=== PATIENT | male | born 1970 | race Caucasian/White ===

== ENCOUNTER 2022-11-26 16:11 | Inpatient (IN) | payer OTHER, MEDICAID, SELFPAY ==
--- NOTE | ~2022-11-26 | CT_ITS ---
EXAMINATION: CT HEAD WITHOUT CONTRAST CLINICAL INFORMATION: New onset psychosis COMPARISON: None available. TECHNIQUE: Contiguous axial imaging was performed from the skull base to vertex without intravenous administration of contrast. This CT examination was performed using dose optimization techniques as appropriate, variously including the following: *Automated exposure control *Adjustment of mA and/or kV according to patient size (this includes techniques or standardized protocols for targeted exams where dose is matched to indication/reason for exam; i.e. extremities or head) *Use of iterative reconstruction technique DLP: 807 mGy-cm FINDINGS: There is no acute intra-axial, extra-axial bleed, masses or midline shift. There is no acute infarction evolution. There is no edema. The great to white matter differentiation is maintained normal. The lateral ventricles are symmetrical in size and configuration without enlargement. Bone windows reveal no calvarial abnormality. Bilateral paranasal sinuses and mastoid air cells are well-aerated. There is no scalp soft tissue abnormality. CT/CT head/brain wo IV con IMPRESSION: No acute intracranial process seen.
[2022-11-26 16:39] VITALS: BP 150/87; PULSE 99; RESP 18; TEMP 36.6; O2SAT 97; BMI 18.5
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
--- NOTE | 2022-11-26 16:42 | ECG_ITS ---
Test Reason : MED CLEARANCE Blood Pressure : / mmHG Vent. Rate : 073 BPM Atrial Rate : 073 BPM P-R Int : 152 ms QRS Dur : 082 ms QT Int : 362 ms P-R-T Axes : 070 039 026 degrees QTc Int : 398 ms Normal sinus rhythm Minimal voltage criteria for LVH, may be normal variant ( Sokolow-Seymour ) Borderline ECG No previous ECGs available Referred By: Sandy Velasquez Electronically Signed By:Benjamin Fisher
[2022-11-26 16:59] LABS: MANUAL DIFF FLAG NO
[2022-11-26 17:01] LABS: Basophils Absolute Auto 0.1 X10*3/uL (0.0-0.2); Basophils Percent Auto 0.7 % (0-2); Eosinophils Percent Auto 0.3 % (0-4); Hematocrit 44.3 % (42.0-52.0); Hemoglobin 15.2 g/dl (14.0-18.0); Imm Gran Abs Auto 0.02 X10*3/uL (0.00-0.03); Imm Gran Pct Auto 0.2 % (0.0-0.4); Lymphocytes Absolute Auto 2.2 X10*3/uL (1.2-4.9); Lymphocytes Percent Auto 17.1 % (20-40); Mean Corpuscular HGB Conc 34.3 g/dl (31.0-36.0); Mean Corpuscular Volume 78.8 fL (80.0-98.0); Mean Platelet Volume 11.1 fL (9.4-12.4); Monocytes Absolute Auto 0.8 X10*3/uL (0.1-1.2); Neutrophils Absolute Auto 9.6 x10*3/uL (2.0-8.3); Neutrophils Percent Auto 75.7 % (45-73); Platelet Count 221 X10*3/uL (160-400); Red Blood Count 5.62 X10*6/uL (4.60-5.80); Red Cell Distribution Width 12.8 % (11.0-16.0); White Blood Count 12.7 X10*3/uL (4.8-10.8)
[2022-11-26 17:06] LABS: INTERNATIONAL NORM RATIO 1.1 (0.9-1.1); Prothrombin Time 12.5 SEC (10.0-13.1)
[2022-11-26 17:23] LABS: Amphetamine Screen Urine Not Detected (Not Detect); Barbiturates, Urine Not Detected (Not Detect); Benzodiazepines Screen Urine Not Detected (Not Detect); Cannabinoid Screen Urine Not Detected (Not Detect); Cocaine Screen Urine Not Detected (Not Detect); Fentanyl, urine Not Detected (Not Detect); Opiate Screen Urine Not Detected (Not Detect); Phencyclidine Screen Urine Not Detected (Not Detect)
[2022-11-26 17:24] LABS: Ethanol < 10 mg/dL
[2022-11-26 17:41] LABS: Alanine Aminotransferase 25 U/L (0-40); Albumin Level 4.3 g/dL (3.5-5.0); Alkaline Phosphatase 114 U/L (39-117); Anion Gap 11 (12-20); Aspartate Amino Transferase 23 U/L (5-37); Bilirubin Total 0.5 mg/dL (0.0-1.0); Blood Urea Nitrogen 9 mg/dL (9-16); Calcium 9.4 mg/dL (8.4-10.2); Carbon Dioxide 28 mmol/L (22-29); Chloride 103 mmol/L (96-108); Creatinine Clr Calc Pharmacy 61.9; Estimated Glomerular Filt Rate > 60; Glucose Random 404 mg/dL (60-115); Lipase 25 U/L (8-78); Magnesium 1.9 mg/dL (1.6-2.6); Potassium 4.1 mmol/L (3.3-5.1); Sodium 138 mmol/L (135-145); Total Protein 7.6 g/dL (6.5-8.0)
--- NOTE | 2022-11-26 17:43 | PC.NURSE ---
patient alert, oriented x4. denies SI or HI to RN. calm and cooperative with staff
[2022-11-26 17:45] LABS: TSH reflex Free T4 0.97 uIU/mL (0.32-4.0)
[2022-11-26 18:02] LABS: Influenza A PCR NEGATIVE (Negative); Influenza B PCR NEGATIVE (Negative); Resp Syncy Virus RNA Qual PCR NEGATIVE (Negative); SARS COV2 PCR INHOUSE NEGATIVE (Negative)
[2022-11-26 18:36] LABS: Appearance Urine Clear; Color Urine Yellow; Glucose Urine UA >=1000 mg/dL (Negative); Leukocyte Esterase Urine Negative (Negative); Nitrite Urine Negative (Negative); PH 5.5 (5.0-9.0); Specific Gravity - Urine >= 1.030 (1.005-1.025); UMIC TRIGGER UACC YES; Urine Blood Negative (Negative); Urine Ketones Negative (Negative); Urine Protein 30 (1+) mg/dL (Neg-Trace)
[2022-11-26 18:38] LABS: Bacteria Urine None Seen (None Seen); Hyaline Casts Urine 0-2 /LPF (0-2); RBC Urine 0-2 /HPF (0-2); Squamous Epithelial Cell Urine 0-2 /HPF (0-2); WBC Urine 0-5 /HPF (0-5)
[2022-11-26] MEDS: metFORMIN HCl 1,000 MG TABLET 1000 MG PO (19:31)
--- NOTE | 2022-11-26 19:33 | PC.NURSE ---
Patient's RG @ 1653 was 404, provider made aware/ordered Metformin 1000 mg/administered at 1931, called sister Haylee/not aware of any patient's medical diagnosis including diabetes, Chinese speaking only, awaiting care team assesment, will continue to monitor.
[2022-11-27 06:04] LABS: Glucose, Whole Blood 343 mg/dL (60-115)
[2022-11-27 06:09] VITALS: BP 125/87; PULSE 87; RESP 17; O2SAT 99
--- NOTE | 2022-11-27 06:13 | PC.NURSE ---
Patient slept through the night, no distress observed/reported, POC @ 0559 was 343 provider made aware, med rec completed/currently not on any medication, care team assessed the patient, disposition pending, patient will be reevaluated in the morning, patient is Estonian speaking only, behavior non concerning, will continue to monitor.
--- NOTE | 2022-11-27 07:55 | PC.NURSE ---
pt is sleeping resp even and unlabored.
[2022-11-27 09:16] LABS: Glucose, Whole Blood 337 mg/dL (60-115)
--- NOTE | 2022-11-27 09:33 | PC.NURSE ---
this rn with de alcoholizer at bedside. pt is ao x 3 no sob/george noted speaks in full sentences. denies any si/hi. denies pain/disc. pt ate 100% of breakfast.
[2022-11-27] MEDS: metFORMIN HCl 1,000 MG TABLET 1000 MG PO (10:31)
[2022-11-27 11:34] VITALS: BP 130/86; PULSE 89; RESP 19; TEMP 37.1; O2SAT 97
[2022-11-27 13:10] LABS: Glucose, Whole Blood 263 mg/dL (60-115)
--- NOTE | 2022-11-27 13:38 | PC.NURSE ---
dr. rodriguez and the cvt rn at bedside, pt aware of plan of care.
--- NOTE | 2022-11-27 14:34 | PM.PSYCN ---
History of Present Illness Date of Service: 11/27/22 Chief Complaint: bumps on head itchy Discussed with referring provider: No Sources of Information: patient interviewed, chart reviewed and crisis/core team assessment reviewed HPI Narrative: Patient is a 52-year-old [place]-speaking male with history of diabetes, currently hyperglycemic whose family brought to the ED for manic, disorganized behaviors. Patient seen with seating and mobility technologist Patient's family reports that patient has been acting disorganized, making suicidal comments, saying he was going to burn down a bank and getting in fights with coworkers at work. Patient is polite on approach however disorganized. He says that he is in the process of getting a lawsuit which he will get lots of money and offers some to the field underwriter and glove maker and other staff for being helpful. Patient is tangential. Cane Loader asked about what brought him to the hospital. Patient starts by saying it was a family problem that brought me here but then starts rambling about unrelated things; frequent redirections were not sustainable. Even when asked if he was fighting with his coworkers, he initially said yes but then started talking about all sorts of unrelated things; however he did say that he was asking every single co-worker how much money that made. Patient denies that he wanted to burn a bank and denies any SI at all saying he never said these things. Denies any history of psychiatric illness or taking psychiatric medications. Patient does say however that he has not been sleeping all week be his he has too much energy. Patient refuses any medication treatment. Past Psychiatric History: Patient reports no history Medical Evaluation Reviewed: Yes Personal & Social History: See care team notes PMFSH Family History: Unknown Social History: Deferred Trauma History: Deferred Diagnostics Vital Signs (24Hr): Vital Signs - 24 hr 11/26/22 16:39 11/27/22 06:09 11/27/22 11:34 Temperature 97.9 F 98.8 F Pulse Rate 99 87 89 Respiratory Rate 18 17 19 Blood Pressure 150/87 H 125/87 130/86 Pulse Oximetry 97 99 97 Oxygen Delivery Method Room Air Room Air Room Air BMI result Body Mass Index 18.5 Labs 11/26/22 16:53 11/26/22 16:53 Labs: Laboratory Results - last 48 hr 11/26/22 11/26/22 11/26/22 16:53 16:53 16:53 WBC 12.7 H RBC 5.62 Hgb 15.2 Hct 44.3 MCV 78.8 L MCH 27.0 MCHC 34.3 RDW 12.8 Plt Count 221 MPV 11.1 Immature Gran % (Auto) 0.2 Neut % (Auto) 75.7 H Lymph % (Auto) 17.1 L [place] % (Auto) 6.0 Eos % (Auto) 0.3 Baso % (Auto) 0.7 Lymph # (Auto) 2.2 [place] # (Auto) 0.8 Eos # (Auto) 0.0 Baso # (Auto) 0.1 Abs Immat Gran (auto) 0.02 Absolute Neuts (auto) 9.6 H Absolute Nucleated RBC 0.000 Nucleated RBC % (auto) 0.0 PT 12.5 INR 1.1 Sodium 138 Potassium 4.1 Chloride 103 Carbon Dioxide 28 Anion Gap 11 L BUN 9 Creatinine 1.11 Estim Creat Clear Calc 61.9 Estimated GFR > 60 POC Glucose Random Glucose 404 H* Calcium 9.4 Magnesium 1.9 Total Bilirubin 0.5 AST 23 ALT 25 Alkaline Phosphatase 114 Total Protein 7.6 Albumin 4.3 Lipase 25 TSH 0.97 Urine Color Urine Appearance Urine pH Ur Specific [place] Urine Protein Urine Glucose (UA) Urine Ketones Urine Blood Urine Nitrite Ur Leukocyte Esterase Urine RBC Urine WBC Ur Squamous Epith Cells Urine Bacteria Hyaline Casts Urine Opiates Screen Urine Fentanyl Screen Ur Barbiturates Screen Ur Phencyclidine Scrn Ur Amphetamines Screen U Benzodiazepines Scrn Urine Cocaine Screen U Marijuana (THC) Screen Ethyl Alcohol Influenza Type A (PCR) Influenza Type B (PCR) RSV RNA Qual (PCR) SARS-CoV-2 RNA (RT-PCR) 11/26/22 11/26/22 11/26/22 16:53 16:53 17:04 WBC RBC Hgb Hct MCV MCH MCHC RDW Plt Count MPV Immature Gran % (Auto) Neut % (Auto) Lymph % (Auto) [place] % (Auto) Eos % (Auto) Baso % (Auto) Lymph # (Auto) [place] # (Auto) Eos # (Auto) Baso # (Auto) Abs Immat Gran (auto) Absolute Neuts (auto) Absolute Nucleated RBC Nucleated RBC % (auto) PT INR Sodium Potassium Chloride Carbon Dioxide Anion Gap BUN Creatinine Estim Creat Clear Calc Estimated GFR POC Glucose Random Glucose Calcium Magnesium Total Bilirubin AST ALT Alkaline Phosphatase Total Protein Albumin Lipase TSH Urine Color Yellow Urine Appearance Clear Urine pH 5.5 Ur Specific [place]erman >= 1.030 H Urine Protein 30 (1+) H Urine Glucose (UA) >=1000 H Urine Ketones Negative Urine Blood Negative Urine Nitrite Negative Ur Leukocyte Esterase Negative Urine RBC 0-2 Urine WBC 0-5 Ur Squamous Epith Cells 0-2 Urine Bacteria None Seen Hyaline Casts 0-2 Urine Opiates Screen Urine Fentanyl Screen Ur Barbiturates Screen Ur Phencyclidine Scrn Ur Amphetamines Screen U Benzodiazepines Scrn Urine Cocaine Screen U Marijuana (THC) Screen Ethyl Alcohol < 10 Influenza Type A (PCR) NEGATIVE Influenza Type B (PCR) NEGATIVE RSV RNA Qual (PCR) NEGATIVE SARS-CoV-2 RNA (RT-PCR) NEGATIVE 11/26/22 11/27/22 11/27/22 17:04 05:59 09:11 WBC RBC Hgb Hct MCV MCH MCHC RDW Plt Count MPV Immature Gran % (Auto) Neut % (Auto) Lymph % (Auto) [place] % (Auto) Eos % (Auto) Baso % (Auto) Lymph # (Auto) [place] # (Auto) Eos # (Auto) Baso # (Auto) Abs Immat Gran (auto) Absolute Neuts (auto) Absolute Nucleated RBC Nucleated RBC % (auto) PT INR Sodium Potassium Chloride Carbon Dioxide Anion Gap BUN Creatinine Estim Creat Clear Calc Estimated GFR POC Glucose 343 H 337 H Random Glucose Calcium Magnesium Total Bilirubin AST ALT Alkaline Phosphatase Total Protein Albumin Lipase TSH Urine Color Urine Appearance Urine pH Ur Specific [place]erman Urine Protein Urine Glucose (UA) Urine Ketones Urine Blood Urine Nitrite Ur Leukocyte Esterase Urine RBC Urine WBC Ur Squamous Epith Cells Urine Bacteria Hyaline Casts Urine Opiates Screen Not Detected Urine Fentanyl Screen Not Detected Ur Barbiturates Screen Not Detected Ur Phencyclidine Scrn Not Detected Ur Amphetamines Screen Not Detected U Benzodiazepines Scrn Not Detected Urine Cocaine Screen Not Detected U Marijuana (THC) Screen Not Detected Ethyl Alcohol Influenza Type A (PCR) Influenza Type B (PCR) RSV RNA Qual (PCR) SARS-CoV-2 RNA (RT-PCR) 11/27/22 13:05 WBC RBC Hgb Hct MCV MCH MCHC RDW Plt Count MPV Immature Gran % (Auto) Neut % (Auto) Lymph % (Auto) [place] % (Auto) Eos % (Auto) Baso % (Auto) Lymph # (Auto) [place] # (Auto) Eos # (Auto) Baso # (Auto) Abs Immat Gran (auto) Absolute Neuts (auto) Absolute Nucleated RBC Nucleated RBC % (auto) PT INR Sodium Potassium Chloride Carbon Dioxide Anion Gap BUN Creatinine Estim Creat Clear Calc Estimated GFR POC Glucose 263 H Random Glucose Calcium Magnesium Total Bilirubin AST ALT Alkaline Phosphatase Total Protein Albumin Lipase TSH Urine Color Urine Appearance Urine pH Ur Specific [place]erman Urine Protein Urine Glucose (UA) Urine Ketones Urine Blood Urine Nitrite Ur Leukocyte Esterase Urine RBC Urine WBC Ur Squamous Epith Cells Urine Bacteria Hyaline Casts Urine Opiates Screen Urine Fentanyl Screen Ur Barbiturates Screen Ur Phencyclidine Scrn Ur Amphetamines Screen U Benzodiazepines Scrn Urine Cocaine Screen U Marijuana (THC) Screen Ethyl Alcohol Influenza Type A (PCR) Influenza Type B (PCR) RSV RNA Qual (PCR) SARS-CoV-2 RNA (RT-PCR) Mental Status Exam Mental Status Exam Narrative: Pt is alert and oriented to self and place, but not situation; behavior is hypomanic but cooperative, friendly; patient is not in distress; dressed in hospital attire adequately groomed; mood is described as good and affect constricted; eye contact appropriate; Speech hyperverbal but normal volume and prosody. no psychomotor agitation present; thought process is disorganized and tangential some; Thought content is on a lawsuit various unrelated irrelevant topics; difficult to engage but recent delusional content expressed; patient denies any SI/HI. Patients insight and judgment impaired Medications Allergies Allergies Allergy/AdvReac Type Severity Reaction Status Date / Time No Known Allergies Allergy Verified 11/26/22 16:38 Assessment & Plan Assessment & Plan (1) Manic episode: Status: Acute Code(s): F30.9 - Manic episode, unspecified (2) Hyperglycemia: Status: Acute Code(s): R73.9 - Hyperglycemia, unspecified Plan Patient is a 52-year-old [place]-speaking male with history of diabetes, currently hyperglycemic whose family brought to the ED for manic, disorganized behaviors. Patient denies any psychiatric history and is currently unknown if this is an isolated episode or a chronic condition; will need collateral. Currently however patient is disorganized. His family reports patient has made suicidal comments, has been getting in fights with his coworkers and making delusional, paranoid statements., patient cannot explain these things at all. Patient currently presents as manic and without any insight; family has considerable including patient's safety towards himself and others. At this time he requires inpatient admission for safety and stabilization and likely medication management. F/P requires inpatient admission for safety and stabilization and likely medication management. Total time managing care of this patient today ____ minutes. Patient educated on: diagnosis Informed Consent: does not understand
--- NOTE | 2022-11-27 14:37 | PC.NURSE ---
pt has family member at bedside/common area. pt needs a work note when he is discharged from hosp.
--- NOTE | 2022-11-27 15:58 | PC.NURSE ---
pt resting on bed at this time with family member at bedside. Multiple family members have visited pt today. Pt has remained calm and cooperative with no apparent distress. Care team spoke with patient and family members, plan for inpatient admission.
--- NOTE | 2022-11-27 16:27 | MHC.CARE ---
Patient evaluated by the CARE Team to need inpatient psychiatric care, will remain in the ED until a placement is secured. Providers updated
[2022-11-27] MEDS: metFORMIN HCl 500 MG TABLET PO (16:40)
[2022-11-27] MEDS: OLANZapine 5 MG TABLET PO (19:52)
--- NOTE | 2022-11-28 06:20 | PC.NURSE ---
Patient slept through the night, no distress observed/reported, disposition per care team is section 12 Inpatient Bed Search, no update on bed search, behavior non concerning, medication compliant, VSS, will continue to monitor.
[2022-11-28 06:31] VITALS: BP 134/82; PULSE 64; RESP 17; TEMP 36.2; O2SAT 98
[2022-11-28 06:51] LABS: Glucose, Whole Blood 211 mg/dL (60-115)
[2022-11-28 16:57] VITALS: BP 138/90; PULSE 80; RESP 18; TEMP 36.6; O2SAT 98
--- NOTE | 2022-11-28 17:40 | PC.NURSE ---
This patient is primarily Hungarian speaking. He is up on a CV with 15 min checks. This is cSott's first inpatient hospitalization, here with unspecified jon. He was evaluated in the field and brought to the hospital on a 12Am for exhibiting extreme and labile behaviors, which includes giving money (500 dollars) to random strangers, getting into verbal altercations at restaurant, yelling at family members, and accusing of having an affair. The patients family reports that he has never acted this way before. He does not take any medication for this (at this time). He denies HI/SI and hallucinations. Tox screen negative. Reported that he has not slept in 5 days. He is a type 2 diabetic. He is pleasant, and grandiose.
[2022-11-28] MEDS: metFORMIN HCl 500 MG TABLET PO (18:04)
--- NOTE | 2022-11-28 18:29 | PC.NURSE ---
Patient ate 100% of his dinner
[2022-11-28 21:05] VITALS: BP 132/74; PULSE 106; RESP 18; TEMP 36.3; O2SAT 98
[2022-11-28] MEDS: traZODone HCL 50 MG TABLET PO ×2 (21:10→23:49)
[2022-11-28] MEDS: hydrOXYzine HCL 25 MG TABLET PO (23:49)
[2022-11-28] MEDS: OLANZapine 5 MG TABLET PO (23:49)
[2022-11-29 07:00] VITALS: BMI 22.1
[2022-11-29] MEDS: metFORMIN HCl 500 MG TABLET PO ×2 (08:49→16:44)
[2022-11-29 09:06] LABS: Alanine Aminotransferase 23 U/L (0-40); Albumin Level 4.1 g/dL (3.5-5.0); Alkaline Phosphatase 103 U/L (39-117); Anion Gap 16 (12-20); Aspartate Amino Transferase 15 U/L (5-37); Bilirubin Direct 0.3 mg/dL (0.0-0.5); Bilirubin Total 1.2 mg/dL (0.0-1.0); Blood Urea Nitrogen 13 mg/dL (9-16); Calcium 9.7 mg/dL (8.4-10.2); Carbon Dioxide 29 mmol/L (22-29); Chloride 101 mmol/L (96-108); Cholesterol 155 mg/dL; Creatinine Clr Calc Pharmacy 67.4; Estimated Glomerular Filt Rate > 60; Glucose Fasting 265 mg/dL (60-99); HDL Cholesterol 33 mg/dL; LDL Cholesterol Calculated 98 mg/dl; Potassium 4.6 mmol/L (3.3-5.1); Sodium 141 mmol/L (135-145); Total Protein 7.6 g/dL (6.5-8.0); Triglycerides 123 mg/dL
[2022-11-29 09:09] LABS: Estimated Average Glucose 332 mg/dL; Hemoglobin A1c % 13.2 %
[2022-11-29 09:13] LABS: Glucose, Whole Blood 260 mg/dL (60-115)
--- NOTE | 2022-11-29 09:38 | HO.PSYADMNOT ---
HPI Date of Service: 11/29/22 Chief Complaint: jon Sources of Information: patient interviewed, chart reviewed and crisis/core team assessment reviewed HPI Subjective Notes: Zaman Warning (given and shows understanding) and Conditional Voluntary Narrative: Mr. Montero is a 52 year-old male with no prior psych hx brought by family to [facility] ED as pt presenting increasingly more irritable, accusing partner of having an affair, giving out hundreds of dollar to stranger, not sleeping and acting in ways not like himself. Utox is negative. On the unit, pt reports he is doing well. He reports he suspected his partner cheating on him for a while. He reports he saw semen on her underwear. No other proof of affair but he states he knows. He reports he does not want to be with her. They have been together more more than 12 years and they have a daughter together. In terms of money he has been giving away, he does notes he had not done it in the past but states my family doesn't know that I am a generous person. He also reports incident at work when he had to wait too long for his food and became upset. He does note that there's been some changes in his behavior but also states that anger was beneath the surface and he is now letting it all out. He denies SI/HI. He reports he wants to move to [place], which is a drastic change in plans as he states he had not planned it for a while, it just happened over the past weekend. He denies any psychiatric symptoms and hopes to be discharged [place]. He reports he was not sleeping at home but was able to sleep last night in the hospital. He denies VH/AH. Past Psychiatric History: Inpt: none OP: none Medical Evaluation Reviewed: Yes [facility] Family History: Unknown Social History: Deferred Trauma History: Deferred Diagnostics Vital Signs (24Hr): Vital Signs - 24 hr 11/28/22 16:57 11/28/22 21:05 Temperature 97.8 F 97.3 F Pulse Rate 80 106 H Respiratory Rate 18 18 Blood Pressure 138/90 H 132/74 Pulse Oximetry 98 98 Oxygen Delivery Method Room Air Room Air BMI result Body Mass Index 18.5 Labs 11/26/22 16:53 11/29/22 08:03 Labs: Laboratory Results - last 48 hr 03/11/28/22 11/29/22 13:05 06:47 08:03 Sodium 141 Potassium 4.6 Chloride 101 Carbon Dioxide 29 Anion Gap 16 BUN 13 Creatinine 1.02 Estim Creat Clear Calc 67.4 Estimated GFR > 60 POC Glucose 263 H 211 H Fasting Glucose 265 H Estimat Average Glucose Hemoglobin A1c % Calcium 9.7 Total Bilirubin 1.2 H Direct Bilirubin 0.3 AST 15 ALT 23 Alkaline Phosphatase 103 Total Protein 7.6 Albumin 4.1 Triglycerides 123 Cholesterol 155 LDL Cholesterol, Calc 98 HDL Cholesterol 33 11/29/22 11/29/22 08:03 08:48 Sodium Potassium Chloride Carbon Dioxide Anion Gap BUN Creatinine Estim Creat Clear Calc Estimated GFR POC Glucose 260 H Fasting Glucose Estimat Average Glucose 332 Hemoglobin A1c % 13.2 Calcium Total Bilirubin Direct Bilirubin AST ALT Alkaline Phosphatase Total Protein Albumin Triglycerides Cholesterol LDL Cholesterol, Calc HDL Cholesterol Meds/Allergies Meds Home Medications Medication Instructions Recorded Confirmed Type No Known Home Meds 11/26/22 11/26/22 History Allergies Allergies Allergy/AdvReac Type Severity Reaction Status Date / Time No Known Allergies Allergy Verified 11/26/22 16:38 Mental Status Exam Mental Status Exam Narrative: Appearance: wearing hospital gown, thin, in NAD behavior: cooperative Psychomotor: no agitation or retardation noted Speech: clear, normal rate/rhythm/volume, spontaneous TP: linear TC: no signs of psychosis but wanting to move to [place], leave partner Mood: good Affect: intense but not overt labile affect. Si: denies HI: none VH/AH: none Delusions: none Insight/judgment: fair x 2. Memory/cog: alert, oriented x 3. Assessment & Plan Assessment & Plan (1) Mood disorder: Status: Acute Code(s): F39 - Unspecified mood [affective] disorder Plan Mr Montero is a 52 year-old male with no prior hx of psychiatric symptoms brought in by family as pt presenting as paranoid towards partner, more irritable, not sleeping impulsive/reckless behaviors such as randomly given money to strangers. Utox negative. Pt does note some changes in behavior but minimizes and lacks insight as to concerns in changes in behaviors. We discussed risks, befits and alternative treatment options. At the moment, pt does not want scheduled medications. PLAN 1. Admit to M3, Cv 15 minutes checks 2. obtain collateral information 3. Aftercare planning. Patient educated on: diagnosis Reason for continued inpatient stay Substantial Risk for: inability to function Statement Statement: I have reviewed the history and physical and performed a pertinent examination on my patient. No changes have occurred unless specified. If the History and Physical was not performed prior to admission, the Hospitalist's service will be consulted for completing the admission physical. Time Spent With Patient Time: Total time managing care of this patient today ____ minutes.
[2022-11-29 09:40] LABS: Free T4 (Free Thyroxine) 1.01 ng/dL (0.71-1.85); Thyroid Stimulating Hormone 2.31 uIU/mL (0.32-4.0); Vitamin B12 343 pg/mL (200-900)
[2022-11-29 09:49] VITALS: BP 115/72; PULSE 78; RESP 16; TEMP 36.6; O2SAT 98
[2022-11-29 21:02] VITALS: BP 130/81; PULSE 102; TEMP 36.8; O2SAT 97
[2022-11-29] MEDS: hydrOXYzine HCL 25 MG TABLET PO (21:22)
[2022-11-29] MEDS: OLANZapine 5 MG TABLET PO (21:22)
[2022-11-30 08:25] VITALS: BP 126/75; PULSE 95; RESP 18; TEMP 36.6; O2SAT 100
[2022-11-30] MEDS: metFORMIN HCl 500 MG TABLET PO ×2 (09:20→16:31)
--- NOTE | 2022-11-30 10:38 | HO.PSYCHPN ---
Subjective Subjective Date of Service: 11/30/22 Reason For Visit: jon Subjective Notes: Conditional Voluntary Interim History: Met with Pt and FRANNY Ly. Pt reports he is going through a process. He states he is grateful for all support received while on the unit. He reports he plans to bring everyone to [place] after here but states vick will pay their own tickets. He reports he has a plan to bring all his family and coworker to the unit, so that they too can go through this process, It's very important. Pt thinks he will be facilitating everyone's process. He denies hearing voices of God but reporting that he felt like God telling him to give money away to others. Per nursing, pt with poor boundaries, trying to hug and kiss female staff and patients. He was redirected. He does agree to start medications for mood. Mental Status Exam Mental Status Exam Narrative: Appearance: wearing hospital gown, thin, in NAD behavior: cooperative Psychomotor: no agitation or retardation noted Speech: clear, normal rate/rhythm/volume, spontaneous TP: linear TC: wanting to help others go through a process Mood: great Affect: expansive Si: denies HI: none VH/AH: hearing God's voice although denies AH. Delusions: grandiose ideas of being helper and savior to others Insight/judgment: fair x 2. Memory/cog: alert, oriented x 3. Diagnostics Vital Signs (24Hr): Vital Signs - 24 hr 11/29/22 21:02 Temperature 98.3 F Pulse Rate 102 H Blood Pressure 130/81 Pulse Oximetry 97 Oxygen Delivery Method Room Air BMI result Body Mass Index 22.1 Labs 11/26/22 16:53 11/29/22 08:03 Labs: Laboratory Results - last 48 hr 11/29/22 11/29/22 11/29/22 08:03 08:03 08:48 Sodium 141 Potassium 4.6 Chloride 101 Carbon Dioxide 29 Anion Gap 16 BUN 13 Creatinine 1.02 Estim Creat Clear Calc 67.4 Estimated GFR > 60 POC Glucose 260 H Fasting Glucose 265 H Estimat Average Glucose 332 Hemoglobin A1c % 13.2 Calcium 9.7 Total Bilirubin 1.2 H Direct Bilirubin 0.3 AST 15 ALT 23 Alkaline Phosphatase 103 Total Protein 7.6 Albumin 4.1 Triglycerides 123 Cholesterol 155 LDL Cholesterol, Calc 98 HDL Cholesterol 33 Vitamin B12 343 Folate 15.0 TSH 2.31 Free T4 1.01 Medications Medications Current Medications Acetaminophen (Acetaminophen 325 Mg Tablet) 650 mg PO Q6H PRN PRN Reason: Headache/Pain Mild Scale (1-3) Al Hydroxide/Mg Hydroxide (Magnesium Hydrox/Alum Hydrox 30 Ml Oral.Susp) 30 ml PO Q6H PRN PRN Reason: Heartburn/Nausea Hydroxyzine HCl (Hydroxyzine Hcl 25 Mg Tablet) 25 mg PO Q6H PRN PRN Reason: Anxiety Last Admin: 11/29/22 21:22 Dose: 25 mg [place] Carbonate ([place] Carbonate 300 Mg Tablet) 300 mg PO BID REEMA Magnesium Hydroxide (Milk Of Magnesia 30 Ml Oral.Susp) 30 ml PO DAILY PRN PRN Reason: Constipation Metformin HCl (Metformin Hcl 500 Mg Tablet) 500 mg PO BIDWM REEMA Last Admin: 11/30/22 09:20 Dose: 500 mg Trazodone HCl (Trazodone Hcl 50 Mg Tablet) 50 mg PO BEDTIME PRN PRN Reason: Insomnia Ziprasidone (Ziprasidone 20 Mg Capsule) 20 mg PO DAILY REEMA Allergies Allergies Allergy/AdvReac Type Severity Reaction Status Date / Time No Known Allergies Allergy Verified 11/26/22 16:38 Assessment & Plan Assessment & Plan (1) Bipolar 1 disorder, manic, moderate: Status: Acute Code(s): F31.12 - Bipolar disorder, current episode manic without psychotic features, moderate Plan Mr Montero is a 52 year-old male with no prior hx of psychiatric symptoms brought in by family as pt presenting as paranoid towards partner, more irritable, not sleeping impulsive/reckless behaviors such as randomly given money to strangers. Utox negative. Pt does note some changes in behavior but minimizes and lacks insight as to concerns in changes in behaviors. We discussed risks, befits and alternative treatment options. At the moment, pt does not want scheduled medications. PLAN 1. Admit to M3, Cv 15 minutes checks 2. obtain collateral information 3. Aftercare planning. 11/30 start lithium 300mg po BID, geodone 20mg po daily. PLEASE adjust dose over the weekend. Reason for contiued inpatient stay Substantial Risk for: inability to function Time Spent With Patient Time: Total time managing care of this patient today ____ minutes.
[2022-11-30] MEDS: Ziprasidone 20 MG CAPSULE PO (11:24)
[2022-11-30] MEDS: Lithium Carbonate 300 MG TABLET PO ×2 (11:25→21:33)
--- NOTE | 2022-11-30 16:23 | MHC.CLN ---
NUTRITION CONSULT FOR NEW DX DIABETES. VISITED WITH PATIENT WITH HELP FROM OBSERVER. PATIENT DOES NOT APPEAR TO HAVE ANY KNOWLEDGE OF DIABETIC MEAL PLANNING. PROVIDED HANDOUT IN [place] FOR HEALTHY DIABETIC EATING. SELECTED ICE CREAM, CEREAL AND FRUIT SNACK. PATIENT MAY BENEFIT FROM OUTPATIENT NUTRITION COUNSELING.
[2022-11-30 21:10] VITALS: BP 140/91; PULSE 97; RESP 18; TEMP 36.4; O2SAT 99
[2022-11-30] MEDS: hydrOXYzine HCL 25 MG TABLET PO (21:33)
[2022-11-30] MEDS: traZODone HCL 50 MG TABLET PO (23:25)
[2022-12-01] MEDS: traZODone HCL 50 MG TABLET PO ×2 (01:14→22:55)
--- NOTE | 2022-12-01 06:46 | PC.NURSE ---
Pt woke at approx. 0445 agitated, confused and delusional. bridge builder was called to assist in translating. Pt was very disorganized, putty worker had difficulty translating some of what patient was saying, i.e. pt made reference to him having to wake up the girl . He stated that staff was lying and breaking the rules, and would therefore be fired. Pt then stated he did not want to talk anymore and walked away from staff back into his room, stating that he just wanted staff to stay away from him. Shortly after pt requested to speak with the putty worker again. 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 everyone was going to wake up at this hour and take a shower. He then stated that he was going to make the elementary spanish teacher the boss instead of himself.
[2022-12-01 08:37] LABS: Glucose, Whole Blood 301 mg/dL (60-115)
[2022-12-01 08:50] VITALS: BP 146/67; PULSE 75; RESP 18; TEMP 36.6; O2SAT 99
[2022-12-01] MEDS: Lithium Carbonate 300 MG TABLET PO ×2 (09:50→22:55)
[2022-12-01] MEDS: metFORMIN HCl 500 MG TABLET PO ×2 (09:50→16:43)
[2022-12-01] MEDS: Ziprasidone 20 MG CAPSULE PO ×2 (09:50→16:43)
--- NOTE | 2022-12-01 12:01 | PC.NURSE ---
am POC, 301 with assistance of singing telegram performer, Pt admitted to drinking juices and snacks this am.
--- NOTE | 2022-12-01 12:44 | P.PNPSI_ITS ---
Subjective Subjective Date of Service: 12/01/22 Reason For Visit: jon Subjective Notes: Conditional Voluntary Interim History: The nursing staff reported the patient had been lab will and irritable at times bizarre and disorganized. Yesterday when was started on Geodon 20 mg with no side effects. On interview the patient denies new symptoms he looks internally preoccupied. We will increase Geodon up to 20 mg p.o. b.i.d. with meals Mental Status Exam Mental Status Exam Patient Appearance: Appropriate Patient Orientation: Person and Situation Level of Consciousness: Awake Mood Description: Withdrawn Affect Description: Constricted Patient Cognition Impaired: Yes Ability to Follow Directions: Good Speech Pattern: Clear Hallucinations: None Delusions: Paranoid Ideation Thought Process: Distracted Thought Content: positive for [place] and positive for Circumstantial Judgement: Fair Diagnostics Vital Signs (24Hr): Vital Signs - 24 hr 11/30/22 21:10 12/01/22 08:50 Temperature 97.6 F 97.9 F Pulse Rate 97 75 Respiratory Rate 18 18 Blood Pressure 140/91 H 146/67 H Pulse Oximetry 99 99 Oxygen Delivery Method Room Air Room Air BMI result Body Mass Index 22.1 Labs 11/26/22 16:53 11/29/22 08:03 Labs: Laboratory Results - last 48 hr 12/01/22 08:28 POC Glucose 301 H Medications Medications Current Medications Acetaminophen (Acetaminophen 325 Mg Tablet) 650 mg PO Q6H PRN PRN Reason: Headache/Pain Mild Scale (1-3) Al Hydroxide/Mg Hydroxide (Magnesium Hydrox/Alum Hydrox 30 Ml Oral.Susp) 30 ml PO Q6H PRN PRN Reason: Heartburn/Nausea Hydroxyzine HCl (Hydroxyzine Hcl 25 Mg Tablet) 25 mg PO Q6H PRN PRN Reason: Anxiety Last Admin: 11/30/22 21:33 Dose: 25 mg [place] Carbonate ([place] Carbonate 300 Mg Tablet) 300 mg PO BID REEMA Last Admin: 12/01/22 09:50 Dose: 300 mg Magnesium Hydroxide (Milk Of Magnesia 30 Ml Oral.Susp) 30 ml PO DAILY PRN PRN Reason: Constipation Metformin HCl (Metformin Hcl 500 Mg Tablet) 500 mg PO BIDWM REEMA Last Admin: 12/01/22 09:50 Dose: 500 mg Trazodone HCl (Trazodone Hcl 50 Mg Tablet) 50 mg PO BEDTIME PRN PRN Reason: Insomnia Last Admin: 12/01/22 01:14 Dose: 50 mg Ziprasidone (Ziprasidone 20 Mg Capsule) 20 mg PO DAILY REEMA Last Admin: 12/01/22 09:50 Dose: 20 mg Allergies Allergies Allergy/AdvReac Type Severity Reaction Status Date / Time No Known Allergies Allergy Verified 11/26/22 16:38 Assessment & Plan Assessment & Plan (1) Bipolar 1 disorder, manic, moderate: Status: Acute Code(s): F31.12 - Bipolar disorder, current episode manic without psychotic features, moderate Plan Mr Montero is a 52 year-old male with no prior hx of psychiatric symptoms brought in by family as pt presenting as paranoid towards partner, more irritable, not sleeping impulsive/reckless behaviors such as randomly given money to strangers. Utox negative. Pt does note some changes in behavior but minimizes and lacks insight as to concerns in changes in behaviors. We discussed risks, befits and alternative treatment options. At the moment, pt does not want scheduled medications. PLAN 1. Admit to M3, Cv 15 minutes checks 2. obtain collateral information 3. Aftercare planning. 11/30 start lithium 300mg po BID, geodone 20mg po daily. PLEASE adjust dose over the weekend. 12/01 increase Geodon 20 mg po bid Reason for contiued inpatient stay Substantial Risk for: inability to function, rapid decompensation and med/psych decompensation Time Spent With Patient Time: Total time managing care of this patient today __20__ minutes.
[2022-12-01 22:45] VITALS: BP 135/75; PULSE 89; RESP 18; TEMP 36.2; O2SAT 97
[2022-12-01] MEDS: hydrOXYzine HCL 25 MG TABLET PO (22:55)
[2022-12-02] MEDS: traZODone HCL 50 MG TABLET PO ×2 (00:10→19:59)
[2022-12-02 09:01] LABS: Glucose, Whole Blood 250 mg/dL (60-115)
[2022-12-02] MEDS: Ziprasidone 20 MG CAPSULE PO ×2 (09:33→17:23)
[2022-12-02] MEDS: Lithium Carbonate 300 MG TABLET PO ×2 (09:34→19:59)
[2022-12-02] MEDS: metFORMIN HCl 500 MG TABLET PO ×2 (09:34→17:23)
[2022-12-02 10:12] VITALS: BP 114/63; PULSE 104; RESP 18; TEMP 36.7; O2SAT 99
--- NOTE | 2022-12-02 11:48 | PC.NURSE ---
Staff member noted brownish drainage n Pts pillowcase. Upon assessment mostly on back of victors head, there are spotty areas with hair missing and soft raised areas. Pt states that it only hurts when he comes his hair. He said that hes been told that its form his Diabetes. Will mention to when he comes in to make rounds.
--- NOTE | 2022-12-02 13:20 | HO.PSYCHPN ---
Subjective Subjective Date of Service: 12/02/22 Reason For Visit: jon Subjective Notes: Conditional Voluntary Interim History: The nursing staff reported the patient has been active, visible in the unit watching TV having some naps during the afternoon. He was happy since yesterday her son visited him. At times his thought process is disorganized. On interview the patient denies new symptoms. Mental Status Exam Mental Status Exam Patient Appearance: Appropriate Patient Orientation: Person and Situation Level of Consciousness: Awake Patient Behavior: Guarded and Passive Mood Description: Withdrawn Affect Description: Constricted Ability to Follow Directions: Fair Speech Pattern: Clear Hallucinations: None Delusions: Paranoid Ideation Thought Process: Distracted Thought Content: positive for [place]overty of Content and positive for Thought Blocking Judgement: Poor Diagnostics Vital Signs (24Hr): Vital Signs - 24 hr 12/01/22 22:45 12/02/22 10:12 Temperature 97.2 F 98.0 F Pulse Rate 89 104 H Respiratory Rate 18 18 Blood Pressure 135/75 114/63 Pulse Oximetry 97 99 Oxygen Delivery Method Room Air Room Air BMI result Body Mass Index 22.1 Labs 11/26/22 16:53 11/29/22 08:03 Labs: Laboratory Results - last 48 hr 12/01/22 12/02/22 08:28 08:51 POC Glucose 301 H 250 H Medications Medications Current Medications Acetaminophen (Acetaminophen 325 Mg Tablet) 650 mg PO Q6H PRN PRN Reason: Headache/Pain Mild Scale (1-3) Al Hydroxide/Mg Hydroxide (Magnesium Hydrox/Alum Hydrox 30 Ml Oral.Susp) 30 ml PO Q6H PRN PRN Reason: Heartburn/Nausea Hydroxyzine HCl (Hydroxyzine Hcl 25 Mg Tablet) 25 mg PO Q6H PRN PRN Reason: Anxiety Last Admin: 12/01/22 22:55 Dose: 25 mg [place] Carbonate ([place] Carbonate 300 Mg Tablet) 300 mg PO BID [facility] Last Admin: 12/02/22 09:34 Dose: 300 mg Magnesium Hydroxide (Milk Of Magnesia 30 Ml Oral.Susp) 30 ml PO DAILY PRN PRN Reason: Constipation Metformin HCl (Metformin Hcl 500 Mg Tablet) 500 mg PO BIDWM REEMA Last Admin: 12/02/22 09:34 Dose: 500 mg Trazodone HCl (Trazodone Hcl 50 Mg Tablet) 50 mg PO BEDTIME PRN PRN Reason: Insomnia Last Admin: 12/02/22 00:10 Dose: 50 mg Ziprasidone (Ziprasidone 20 Mg Capsule) 20 mg PO BIDWM [facility] Last Admin: 12/02/22 09:33 Dose: 20 mg Allergies Allergies Allergy/AdvReac Type Severity Reaction Status Date / Time No Known Allergies Allergy Verified 11/26/22 16:38 Assessment & Plan Assessment & Plan (1) Bipolar 1 disorder, manic, moderate: Status: Acute Code(s): F31.12 - Bipolar disorder, current episode manic without psychotic features, moderate Plan Mr Montero is a 52 year-old male with no prior hx of psychiatric symptoms brought in by family as pt presenting as paranoid towards partner, more irritable, not sleeping impulsive/reckless behaviors such as randomly given money to strangers. Utox negative. Pt does note some changes in behavior but minimizes and lacks insight as to concerns in changes in behaviors. We discussed risks, befits and alternative treatment options. At the moment, pt does not want scheduled medications. PLAN 1. Admit to M3, Cv 15 minutes checks 2. obtain collateral information 3. Aftercare planning. 11/30 start lithium 300mg po BID, geodone 20mg po daily. PLEASE adjust dose over the weekend. 12/01 increase Geodon 20 mg po bid with meals. 12/02 keep same treatment. Reason for contiued inpatient stay Substantial Risk for: inability to function, rapid decompensation and med/psych decompensation Time Spent With Patient Time: Total time managing care of this patient today ____ minutes.
--- NOTE | 2022-12-02 17:53 | PC.NURSE ---
Patients sister came to visit at 1700. She left the visit tearful and reported to staff that this is not his baseline. She said that he was about to kiss her when she left. [id number], retirement officer services called . Pt is alert and oriented to name , month and place. He stated to the retirement officer that he will have everyone using debit here that pineda will not be allowed. He also sated that he will reward the ones that exercise, he will pay them. 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 That he used to go to clubs , but they wouldn't remember him now. I asked via retirement officer if he had any pain, He pointed to the back of his head where there are raised soft areas in spots where there is no hair, He said the told him not to wash hair with shampoo. Pt denied AH/VH/SI/HI. states his appetite is good and that hes sleeping well.
[2022-12-02 17:58] VITALS: BP 135/76; PULSE 92; RESP 16; TEMP 36.8; O2SAT 99
[2022-12-02] MEDS: hydrOXYzine HCL 25 MG TABLET PO (19:59)
[2022-12-03] MEDS: Acetaminophen 325 MG TABLET 650 MG PO (05:37)
[2022-12-03 08:13] LABS: Glucose, Whole Blood 203 mg/dL (60-115)
[2022-12-03 08:20] VITALS: BP 147/79; PULSE 79; RESP 18; TEMP 36.6; O2SAT 98
[2022-12-03] MEDS: Ziprasidone 20 MG CAPSULE PO ×2 (09:51→17:33)
[2022-12-03] MEDS: metFORMIN HCl 500 MG TABLET PO ×2 (09:52→17:34)
[2022-12-03] MEDS: Lithium Carbonate 300 MG TABLET PO (09:52)
[2022-12-03] MEDS: Lithium Carbonate 300 MG TABLET 150 MG PO (14:15)
--- NOTE | 2022-12-03 14:17 | P.PNPSI_ITS ---
Subjective Subjective Date of Service: 12/03/22 Reason For Visit: jon Interim History: calm, cooperative. i'm very happy. reports he is feeling better than when he came in. agreeable to increase his lithium dosing from 300 BID to 450 BID as of today. no complaints or requests. per staff, c/o drainage on back of head. not attending groups. requiring redirection from others' personal space. hugging others, tried to kiss his sister in a way with which she was not comfortable. slept midnight to 0300. Mental Status Exam Mental Status Exam Narrative: Appearance: wearing hospital gown, thin, in NAD behavior: cooperative Psychomotor: no agitation or retardation noted Speech: clear, normal rate/rhythm/volume, spontaneous TP: linear TC: no delusions or paranoia expressed Mood: i'm very happy. Affect: flexible, normo-intense, non-labile. Si: none expressed HI: none expressed VH/AH: none reported Insight/judgment: fair x 2. Memory/cog: alert, oriented x 3. Diagnostics Vital Signs (24Hr): Vital Signs - 24 hr 12/02/22 17:58 12/03/22 08:20 Temperature 98.3 F 97.9 F Pulse Rate 92 79 Respiratory Rate 16 18 Blood Pressure 135/76 147/79 H Pulse Oximetry 99 98 Oxygen Delivery Method Room Air Room Air BMI result Body Mass Index 22.1 Labs 11/26/22 16:53 11/29/22 08:03 Labs: Laboratory Results - last 48 hr 12/02/22 12/03/22 08:51 08:00 POC Glucose 250 H 203 H Medications Medications Current Medications Acetaminophen (Acetaminophen 325 Mg Tablet) 650 mg PO Q6H PRN PRN Reason: Headache/Pain Mild Scale (1-3) Last Admin: 12/03/22 05:37 Dose: 650 mg Al Hydroxide/Mg Hydroxide (Magnesium Hydrox/Alum Hydrox 30 Ml Oral.Susp) 30 ml PO Q6H PRN PRN Reason: Heartburn/Nausea Hydroxyzine HCl (Hydroxyzine Hcl 25 Mg Tablet) 25 mg PO Q6H PRN PRN Reason: Anxiety Last Admin: 12/02/22 19:59 Dose: 25 mg [place] Carbonate ([place] Carbonate 300 Mg Tablet) 450 mg PO BID REEMA Magnesium Hydroxide (Milk Of Magnesia 30 Ml Oral.Susp) 30 ml PO DAILY PRN PRN Reason: Constipation Metformin HCl (Metformin Hcl 500 Mg Tablet) 500 mg PO BIDWM [facility] Last Admin: 12/03/22 09:52 Dose: 500 mg Trazodone HCl (Trazodone Hcl 50 Mg Tablet) 50 mg PO BEDTIME PRN PRN Reason: Insomnia Last Admin: 12/02/22 19:59 Dose: 50 mg Ziprasidone (Ziprasidone 20 Mg Capsule) 20 mg PO BIDWM [facility] Last Admin: 12/03/22 09:51 Dose: 20 mg Allergies Allergies Allergy/AdvReac Type Severity Reaction Status Date / Time No Known Allergies Allergy Verified 11/26/22 16:38 Assessment & Plan Assessment & Plan (1) Bipolar 1 disorder, manic, moderate: Status: Acute Code(s): F31.12 - Bipolar disorder, current episode manic without psychotic features, moderate Plan Mr Montero is a 52 year-old male with no prior hx of psychiatric symptoms b rought in by family as pt presenting as paranoid towards partner, more irritable, not sleeping impulsive/reckless behaviors such as randomly given money to strangers. Utox negative. Pt does note some changes in behavior but minimizes and lacks insight as to concerns in changes in behaviors. We discussed risks, befits and alternative treatment options. At the moment, pt does not want scheduled medications. PLAN 1. Admit to M3, Cv 15 minutes checks 2. obtain collateral information 3. Aftercare planning. 11/30 start lithium 300mg po BID, geodon 20mg po daily 12/01 increased Geodon 20 mg po bid with meals. 12/02 keep same treatment. 12/03 increased lithium to 450 BID from 300 BID. 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 slept only 3 hrs overnight. medical consult for eval of raised, weeping lesions on occipital scalp. Reason for contiued inpatient stay Substantial Risk for: inability to function and rapid decompensation Time Spent With Patient Time: Total time managing care of this patient today __25__ minutes.
--- NOTE | 2022-12-03 15:41 | PM.EVENT ---
Event Note Date of Service: 12/03/22 Event Note: Patient with significant hidradenitis supprativa ont he occipital scalp which does not appear to be a new diagnosis. Appear to have previously been taking doxycycline 100mg BID for this condition. Can also continue topical mupirocin as previously prescribed outpatient. Would recommend continuing metformin which can also be helpful in HS. If significant weeping, consider covering lesions, but typically not necessary. Outpt dermatology referral advised for ongoing management. Time Spent With Patient Time: Total time managing care of this patient today ____ minutes.
[2022-12-03] MEDS: Doxycycline Monohydrate 100 MG CAPSULE PO (17:33)
[2022-12-03 20:15] VITALS: BP 147/86; PULSE 90; RESP 16; TEMP 36.7; O2SAT 96
[2022-12-03] MEDS: hydrOXYzine HCL 25 MG TABLET PO (20:37)
[2022-12-03] MEDS: Lithium Carbonate 300 MG TABLET 450 MG PO (20:37)
[2022-12-03] MEDS: traZODone HCL 50 MG TABLET PO (20:37)
[2022-12-03] MEDS: Mupirocin 2 % Oint 22 GM TUBE 1 APPL TOPICAL (21:21)
--- NOTE | 2022-12-04 02:54 | PC.NURSE ---
Pt increasingly intrusive with peers, offering hugs, asking RN to give peers medication for various things, and inviting peers to exercise with him. Pt is difficult to redirect, his thought process is too disorganized to comprehend when boundaries are crossed. Conflict w/roommate escalated to pt taking things from roommates side of the room, and inserting himself into his care. Roommate highly agitated and was given a room change. Pt has offered his own possessions to several patients, asked staff to write a female peer's name on his leather jacket and to gift it to her. He was told no, but would not accept this. Jacket was placed in his own belongings to avoid loss of property. Pt was given a new roommate on the overnight with no conflict, but pt was attempting to move his mattress into the kitchen area so his roommate could sleep alone. Pt was redirected and returned his mattress.
[2022-12-04 08:30] VITALS: BP 130/80; PULSE 88; RESP 16; TEMP 36.7; O2SAT 98
[2022-12-04] MEDS: Ziprasidone 20 MG CAPSULE PO ×2 (08:40→17:58)
[2022-12-04] MEDS: Doxycycline Monohydrate 100 MG CAPSULE PO ×2 (08:40→17:58)
[2022-12-04] MEDS: metFORMIN HCl 500 MG TABLET PO ×2 (08:40→17:05)
[2022-12-04] MEDS: Lithium Carbonate 300 MG TABLET 450 MG PO ×2 (08:40→22:05)
[2022-12-04] MEDS: hydrOXYzine HCL 25 MG TABLET PO ×2 (08:41→22:06)
[2022-12-04 08:42] LABS: Glucose, Whole Blood 268 mg/dL (60-115)
[2022-12-04] MEDS: Mupirocin 2 % Oint 22 GM TUBE 1 APPL TOPICAL ×3 (09:30→22:07)
--- NOTE | 2022-12-04 11:26 | HO.PSYCHPN ---
Subjective Subjective Date of Service: 12/04/22 Reason For Visit: jon Subjective Notes: Conditional Voluntary Interim History: Pt today presents as irritable, agitated, stating no one is doing anything for me. Per nursing, pt did not sleep last night and was mostly agitated. Pt offered oral olanzapine 10mg and ativan 2mg po but declined stating he wanted to wait few minutes. 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 He is labile. Medication Compliance: Yes Side effects from medications: No Attending Groups: Intermittent Review of Systems Review of Systems He denies chest pain, SOB, no changes in vision, no headache. No hx of seizures or cancer. Mental Status Exam Mental Status Exam Narrative: Appearance: wearing hospital gown, thin, in NAD behavior: cooperative Psychomotor: no agitation or retardation noted Speech: clear, normal rate/rhythm/volume, spontaneous TP: linear TC: gradiose ideas of having a lot of money and being able to open new business. Mood: no one is helping me Affect: irritable, labile Si: none expressed HI: none expressed VH/AH: none reported Insight/judgment: fair x 2. Memory/cog: alert, oriented x 3. Diagnostics Vital Signs (24Hr): Vital Signs - 24 hr 12/03/22 20:15 Temperature 98.1 F Pulse Rate 90 Respiratory Rate 16 Blood Pressure 147/86 H Pulse Oximetry 96 Oxygen Delivery Method Room Air BMI result Body Mass Index 22.1 Labs 11/26/22 16:53 11/29/22 08:03 Labs: Laboratory Results - last 48 hr 12/03/22 12/04/22 08:00 08:37 POC Glucose 203 H 268 H Medications Medications Current Medications Acetaminophen (Acetaminophen 325 Mg Tablet) 650 mg PO Q6H PRN PRN Reason: Headache/Pain Mild Scale (1-3) Last Admin: 12/03/22 05:37 Dose: 650 mg Al Hydroxide/Mg Hydroxide (Magnesium Hydrox/Alum Hydrox 30 Ml Oral.Susp) 30 ml PO Q6H PRN PRN Reason: Heartburn/Nausea Doxycycline Monohydrate (Doxycycline Monohydrate 100 Mg Capsule) 100 mg PO Q12H REEMA Last Admin: 12/04/22 08:40 Dose: 100 mg Hydroxyzine HCl (Hydroxyzine Hcl 25 Mg Tablet) 25 mg PO Q6H PRN PRN Reason: Anxiety Last Admin: 12/04/22 08:41 Dose: 25 mg [place] Carbonate ([place] Carbonate 300 Mg Tablet) 450 mg PO BID REEMA Last Admin: 12/04/22 08:40 Dose: 450 mg Lorazepam (Lorazepam 1 Mg Tablet) 1 mg PO BEDTIME REEMA Magnesium Hydroxide (Milk Of Magnesia 30 Ml Oral.Susp) 30 ml PO DAILY PRN PRN Reason: Constipation Metformin HCl (Metformin Hcl 500 Mg Tablet) 500 mg PO BIDWM REEMA Last Admin: 12/04/22 08:40 Dose: 500 mg Mupirocin (Mupirocin 2 % Oint 22 Gm Tube) 1 appl TOPICAL TID REEMA; Protocol Last Admin: 12/03/22 21:21 Dose: 1 appl Trazodone HCl (Trazodone Hcl 50 Mg Tablet) 50 mg PO BEDTIME PRN PRN Reason: Insomnia Last Admin: 12/03/22 20:37 Dose: 50 mg Ziprasidone (Ziprasidone 20 Mg Capsule) 20 mg PO BIDWM RE[facility] Last Admin: 12/04/22 08:40 Dose: 20 mg Allergies Allergies Allergy/AdvReac Type Severity Reaction Status Date / Time No Known Allergies Allergy Verified 11/26/22 16:38 Assessment & Plan Assessment & Plan (1) Bipolar 1 disorder, manic, moderate: Status: Acute Code(s): F31.12 - Bipolar disorder, current episode manic without psychotic features, moderate Plan Mr Montero is a 52 year-old male with no prior hx of psychiatric symptoms brought in by family as pt presenting as paranoid towards partner, more irritable, not sleeping impulsive/reckless behaviors such as randomly given money to strangers. Utox negative. Pt does note some changes in behavior but minimizes and lacks insight as to concerns in changes in behaviors. We discussed risks, befits and alternative treatment options. At the moment, pt does not want scheduled medications. PLAN 1. Admit to M3, Cv 15 minutes checks 2. obtain collateral information 3. Aftercare planning. 11/30 start lithium 300mg po BID, geodon 20mg po daily 12/01 increased Geodon 20 mg po bid with meals. 12/02 keep same treatment. 12/03 increased lithium to 450 BID from 300 BID. 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 slept only 3 hrs overnight. medical consult for eval of raised, weeping lesions on occipital scalp. 12/04 continue current medications, lithium increased yesterday. Will add prn Olanzapine and ativan for agitation. scheduled ativan 1 mg po qhs for sleep. Reason for contiued inpatient stay Substantial Risk for: inability to function Time Spent With Patient Time: Total time managing care of this patient today ____ minutes.
[2022-12-04] MEDS: LORazepam 1 MG TABLET 2 MG PO (11:30)
[2022-12-04] MEDS: OLANZapine ODT 10 MG TAB.RAPDIS TRANSLINGU (11:31)
--- NOTE | 2022-12-04 12:16 | PC.NURSE ---
Patient was offered one time doses of ativan 2mg and zyprexa 10mg at 1130 for agitation. He refused. Patient threatened to harm nurse if she approached him. Pt worked with Randolph MCKEON for 45 minutes to decrease agitation. At 12:15 he agreed to meds and took zyprexa 10mg and ativan 2mg po.
[2022-12-04] MEDS: LORazepam 1 MG TABLET PO (22:05)
[2022-12-05 08:15] VITALS: BP 134/86; PULSE 93; RESP 18; TEMP 36.6; O2SAT 99
[2022-12-05 08:17] LABS: Glucose, Whole Blood 199 mg/dL (60-115)
[2022-12-05] MEDS: Lithium Carbonate 300 MG TABLET 450 MG PO ×2 (09:16→20:44)
[2022-12-05] MEDS: Doxycycline Monohydrate 100 MG CAPSULE PO ×2 (09:17→20:45)
[2022-12-05] MEDS: Ziprasidone 20 MG CAPSULE PO ×2 (09:18→17:07)
[2022-12-05] MEDS: metFORMIN HCl 500 MG TABLET PO ×2 (09:18→17:07)
[2022-12-05] MEDS: Mupirocin 2 % Oint 22 GM TUBE 1 APPL TOPICAL ×3 (09:19→20:47)
[2022-12-05 09:23] LABS: Creatinine Clr Calc Pharmacy 91.3; Estimated Glomerular Filt Rate > 60
[2022-12-05 16:06] VITALS: BP 125/80; O2SAT 99
[2022-12-05 20:35] VITALS: BP 139/83; PULSE 86; RESP 18; TEMP 36.2; O2SAT 100
[2022-12-05] MEDS: traZODone HCL 50 MG TABLET PO (20:45)
[2022-12-05] MEDS: OLANZapine ODT 10 MG TAB.RAPDIS TRANSLINGU (20:45)
[2022-12-05] MEDS: hydrOXYzine HCL 25 MG TABLET PO (20:45)
[2022-12-05] MEDS: LORazepam 1 MG TABLET PO (20:45)
[2022-12-06 07:00] VITALS: BMI 22.4
[2022-12-06 08:00] VITALS: BP 138/88; PULSE 85; RESP 16; TEMP 36.8; O2SAT 99
[2022-12-06] MEDS: Lithium Carbonate 300 MG TABLET 450 MG PO ×2 (08:08→21:19)
[2022-12-06] MEDS: Doxycycline Monohydrate 100 MG CAPSULE PO ×2 (08:08→21:18)
[2022-12-06] MEDS: metFORMIN HCl 500 MG TABLET PO ×2 (08:08→16:51)
[2022-12-06] MEDS: Ziprasidone 20 MG CAPSULE PO ×2 (08:08→16:51)
[2022-12-06] MEDS: Mupirocin 2 % Oint 22 GM TUBE 1 APPL TOPICAL ×3 (08:10→21:24)
[2022-12-06 08:37] LABS: Glucose, Whole Blood 202 mg/dL (60-115)
--- NOTE | 2022-12-06 08:59 | HO.PSYCHPN ---
Subjective Subjective Date of Service: 12/05/22 Reason For Visit: jon Subjective Notes: Conditional Voluntary Interim History: Pt calmer today. He reports he has to pay bills and wishes to go out for one day. He states that in his absence his can be admitted to the unit and start the process. Pt has been talking about him going through a lot of changes recently which he hopes others go through. 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 Pt slept last night. Medication Compliance: Yes Side effects from medications: No Review of Systems Review of Systems He denies chest pain, SOB, no changes in vision, no headache. No hx of seizures or cancer. Mental Status Exam Mental Status Exam Narrative: Appearance: wearing hospital gown, thin, in NAD behavior: cooperative Psychomotor: no agitation or retardation noted Speech: clear, normal rate/rhythm/volume, spontaneous TP: linear TC: gradiose ideas of having a lot of money and being able to open new business. Mood: no one is helping me Affect: irritable, labile Si: none expressed HI: none expressed VH/AH: none reported Insight/judgment: fair x 2. Memory/cog: alert, oriented x 3. Diagnostics Vital Signs (24Hr): Vital Signs - 24 hr 12/05/22 16:06 12/05/22 20:35 Temperature 97.1 F Pulse Rate 86 Respiratory Rate 18 Blood Pressure 125/80 139/83 Pulse Oximetry 99 100 Oxygen Delivery Method Room Air Room Air BMI result Body Mass Index 22.1 Labs 11/26/22 16:53 12/05/22 08:37 Labs: Laboratory Results - last 48 hr 12/05/22 12/05/22 12/06/22 08:04 08:37 08:32 Creatinine 0.90 Estim Creat Clear Calc 91.3 Estimated GFR > 60 POC Glucose 199 H 202 H Medications Medications Current Medications Acetaminophen (Acetaminophen 325 Mg Tablet) 650 mg PO Q6H PRN PRN Reason: Headache/Pain Mild Scale (1-3) Last Admin: 12/03/22 05:37 Dose: 650 mg [place] Hydroxide/Mg Hydroxide (Magnesium Hydrox/Alum Hydrox 30 Ml Oral.Susp) 30 ml PO Q6H PRN PRN Reason: Heartburn/Nausea Doxycycline Monohydrate (Doxycycline Monohydrate 100 Mg Capsule) 100 mg PO Q12H REEMA Last Admin: 12/06/22 08:08 Dose: 100 mg Hydroxyzine HCl (Hydroxyzine Hcl 25 Mg Tablet) 25 mg PO Q6H PRN PRN Reason: Anxiety Last Admin: 12/05/22 20:45 Dose: 25 mg [place] Carbonate ([place] Carbonate 300 Mg Tablet) 450 mg PO BID [facility] Last Admin: 12/06/22 08:08 Dose: 450 mg Lorazepam (Lorazepam 1 Mg Tablet) 1 mg PO BEDTIME REEMA Last Admin: 12/05/22 20:45 Dose: 1 mg Lorazepam (Lorazepam 1 Mg Tablet) 2 mg PO Q6H PRN PRN Reason: agitation/sleep Magnesium Hydroxide (Milk Of Magnesia 30 Ml Oral.Susp) 30 ml PO DAILY PRN PRN Reason: Constipation Metformin HCl (Metformin Hcl 500 Mg Tablet) 500 mg PO BIDWM [facility] Last Admin: 12/06/22 08:08 Dose: 500 mg Mupirocin (Mupirocin 2 % Oint 22 Gm Tube) 1 appl TOPICAL TID [facility]; Protocol Last Admin: 12/06/22 08:10 Dose: 1 appl Olanzapine (Olanzapine Odt 10 Mg Tab.Rapdis) 10 mg TRANSLINGU Q6H PRN PRN Reason: agitation Last Admin: 12/05/22 20:45 Dose: 10 mg Trazodone HCl (Trazodone Hcl 50 Mg Tablet) 50 mg PO BEDTIME PRN PRN Reason: Insomnia Last Admin: 12/05/22 20:45 Dose: 50 mg Ziprasidone (Ziprasidone 20 Mg Capsule) 20 mg PO BIDWM [facility] Last Admin: 12/06/22 08:08 Dose: 20 mg Allergies Allergies Allergy/AdvReac Type Severity Reaction Status Date / Time No Known Allergies Allergy Verified 11/26/22 16:38 Assessment & Plan Assessment & Plan (1) Bipolar 1 disorder, manic, moderate: Status: Acute Code(s): F31.12 - Bipolar disorder, current episode manic without psychotic features, moderate Plan Mr oMntero is a 52 year-old male with no prior hx of psychiatric symptoms brought in by family as pt presenting as paranoid towards partner, more irritable, not sleeping impulsive/reckless behaviors such as randomly given money to strangers. Utox negative. Pt does note some changes in behavior but minimizes and lacks insight as to concerns in changes in behaviors. We discussed risks, befits and alternative treatment options. At the moment, pt does not want scheduled medications. PLAN 1. Admit to M3, Cv 15 minutes checks 2. obtain collateral information 3. Aftercare planning. 11/30 start lithium 300mg po BID, geodon 20mg po daily 12/01 increased Geodon 20 mg po bid with meals. 12/02 keep same treatment. 12/03 increased lithium to 450 BID from 300 BID. 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 slept only 3 hrs overnight. medical consult for eval of raised, weeping lesions on occipital scalp. 12/04 continue current medications, lithium increased yesterday. Will add prn Olanzapine and ativan for agitation. scheduled ativan 1 mg po qhs for sleep. 12/05 continue current medications. Reason for contiued inpatient stay Substantial Risk for: inability to function Time Spent With Patient Time: Total time managing care of this patient today ____ minutes.
--- NOTE | 2022-12-06 09:04 | P.PNPSI_ITS ---
Subjective Subjective Date of Service: 12/06/22 Reason For Visit: jon Subjective Notes: Conditional Voluntary Interim History: Pt slept through the night but continues to ideas of going through a process and needing to bring others join this process. Some restoration and grandiose ideas. He denies SI/HI. he reports less paranoia towards , less irritable. No b ehavioral concerns. Review of Systems Review of Systems He denies chest pain, SOB, no changes in vision, no headache. No hx of seizures or cancer. Mental Status Exam Mental Status Exam Narrative: Appearance: wearing hospital gown, thin, in NAD behavior: cooperative Psychomotor: no agitation or retardation noted Speech: clear, normal rate/rhythm/volume, spontaneous TP: linear TC: gradiose ideas of having a lot of money and being able to open new business. Mood: no one is helping me Affect: irritable, labile Si: none expressed HI: none expressed VH/AH: none reported Insight/judgment: fair x 2. Memory/cog: alert, oriented x 3. Diagnostics Vital Signs (24Hr): Vital Signs - 24 hr 12/05/22 16:06 12/05/22 20:35 Temperature 97.1 F Pulse Rate 86 Respiratory Rate 18 Blood Pressure 125/80 139/83 Pulse Oximetry 99 100 Oxygen Delivery Method Room Air Room Air BMI result Body Mass Index 22.1 Labs 11/26/22 16:53 12/05/22 08:37 Labs: Laboratory Results - last 48 hr 12/05/22 12/05/22 12/06/22 08:04 08:37 08:32 Creatinine 0.90 Estim Creat Clear Calc 91.3 Estimated GFR > 60 POC Glucose 199 H 202 H Medications Medications Current Medications Acetaminophen (Acetaminophen 325 Mg Tablet) 650 mg PO Q6H PRN PRN Reason: Headache/Pain Mild Scale (1-3) Last Admin: 12/03/22 05:37 Dose: 650 mg Al Hydroxide/Mg Hydroxide (Magnesium Hydrox/Alum Hydrox 30 Ml Oral.Susp) 30 ml PO Q6H PRN PRN Reason: Heartburn/Nausea Doxycycline Monohydrate (Doxycycline Monohydrate 100 Mg Capsule) 100 mg PO Q12H [facility] Last Admin: 12/06/22 08:08 Dose: 100 mg Hydroxyzine HCl (Hydroxyzine Hcl 25 Mg Tablet) 25 mg PO Q6H PRN PRN Reason: Anxiety Last Admin: 12/05/22 20:45 Dose: 25 mg [place] Carbonate ([place] Carbonate 300 Mg Tablet) 450 mg PO BID [facility] Last Admin: 12/06/22 08:08 Dose: 450 mg Lorazepam (Lorazepam 1 Mg Tablet) 1 mg PO BEDTIME [facility] Last Admin: 12/05/22 20:45 Dose: 1 mg Lorazepam (Lorazepam 1 Mg Tablet) 2 mg PO Q6H PRN PRN Reason: agitation/sleep Magnesium Hydroxide (Milk Of Magnesia 30 Ml Oral.Susp) 30 ml PO DAILY PRN PRN Reason: Constipation Metformin HCl (Metformin Hcl 500 Mg Tablet) 500 mg PO BIDWM [facility] Last Admin: 12/06/22 08:08 Dose: 500 mg Mupirocin (Mupirocin 2 % Oint 22 Gm Tube) 1 appl TOPICAL TID [facility]; Protocol Last Admin: 12/06/22 08:10 Dose: 1 appl Olanzapine (Olanzapine Odt 10 Mg Tab.Rapdis) 10 mg TRANSLINGU Q6H PRN PRN Reason: agitation Last Admin: 12/05/22 20:45 Dose: 10 mg Trazodone HCl (Trazodone Hcl 50 Mg Tablet) 50 mg PO BEDTIME PRN PRN Reason: Insomnia Last Admin: 12/05/22 20:45 Dose: 50 mg Ziprasidone (Ziprasidone 20 Mg Capsule) 20 mg PO BIDWM [facility] Last Admin: 12/06/22 08:08 Dose: 20 mg Allergies Allergies Allergy/AdvReac Type Severity Reaction Status Date / Time No Known Allergies Allergy Verified 11/26/22 16:38 Assessment & Plan Assessment & Plan (1) Bipolar 1 disorder, manic, moderate: Status: Acute Code(s): F31.12 - Bipolar disorder, current episode manic without psychotic features, moderate Plan Mr Montero is a 52 year-old male with no prior hx of psychiatric symptoms brought in by family as pt presenting as paranoid towards partner, more irritable, not sleeping impulsive/reckless behaviors such as randomly given money to strangers. Utox negative. Pt does note some changes in behavior but minimizes and lacks insight as to concerns in changes in behaviors. We discussed risks, befits and alternative treatment options. At the moment, pt does not want scheduled medications. PLAN 1. Admit to M3, Cv 15 minutes checks 2. obtain collateral information 3. Aftercare planning. 11/30 start lithium 300mg po BID, geodon 20mg po daily 12/01 increased Geodon 20 mg po bid with meals. 12/02 keep same treatment. 12/03 increased lithium to 450 BID from 300 BID. 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 slept only 3 hrs overnight. medical consult for eval of raised, weeping lesions on occipital scalp. 12/04 continue current medications, lithium increased yesterday. Will add prn Ol anzapine and ativan for agitation. scheduled ativan 1 mg po qhs for sleep. 12/05 continue current medications. 12/06 continue tx. will add crp, shanti, head CT Reason for contiued inpatient stay Substantial Risk for: inability to function Time Spent With Patient Time: Total time managing care of this patient today ____ minutes.
[2022-12-06] MEDS: OLANZapine ODT 10 MG TAB.RAPDIS TRANSLINGU (21:18)
[2022-12-06] MEDS: hydrOXYzine HCL 25 MG TABLET PO (21:18)
[2022-12-06] MEDS: LORazepam 1 MG TABLET PO (21:18)
[2022-12-06] MEDS: traZODone HCL 50 MG TABLET PO (21:18)
[2022-12-06 21:24] VITALS: BP 151/84; PULSE 88; RESP 18; TEMP 36.6; O2SAT 98
[2022-12-06] MEDS: LORazepam 1 MG TABLET 2 MG PO (22:47)
[2022-12-07 08:00] VITALS: BP 120/68; PULSE 100; TEMP 36.2; O2SAT 99
[2022-12-07 08:42] LABS: Glucose, Whole Blood 268 mg/dL (60-115)
[2022-12-07] MEDS: Lithium Carbonate 300 MG TABLET 450 MG PO ×2 (08:42→21:30)
[2022-12-07] MEDS: Doxycycline Monohydrate 100 MG CAPSULE PO ×2 (08:43→21:30)
[2022-12-07] MEDS: metFORMIN HCl 500 MG TABLET PO ×2 (08:43→17:47)
[2022-12-07] MEDS: Ziprasidone 40 MG CAPSULE PO ×2 (08:43→17:47)
[2022-12-07 10:03] LABS: Lithium 0.82 mmol/L (0.60-1.20)
[2022-12-07 10:08] LABS: C Reactive Protein 0.28 mg/dL (< or = 0.50)
[2022-12-07] MEDS: Mupirocin 2 % Oint 22 GM TUBE 1 APPL TOPICAL ×3 (10:18→21:30)
--- NOTE | 2022-12-07 14:53 | P.PNPSI_ITS ---
Subjective Subjective Date of Service: 12/07/22 Reason For Visit: jon Interim History: calm, cooperative. seen with development rep. reports he is feeling well, was able to talk to his and kids. asking about D/C plans. becomes mildly upset with repeated declinations of his requests for discharge. per staff, visible, pacing. sleeping, meds, meals. agitated, demanding to leave last NOC. slept after 0100. Mental Status Exam Mental Status Exam Narrative: Appearance: atreet clothes, thin, in NAD behavior: cooperative Psychomotor: no agitation or retardation noted Speech: clear, normal rate/rhythm/volume, spontaneous TP: linear TC: no delusions or paranoia expressed. asking for discharge. Mood: good Affect: irritable, min-labile Si: none expressed HI: none expressed VH/AH: none reported Insight/judgment: fair x 2. Memory/cog: alert, oriented x 3. Diagnostics Vital Signs (24Hr): Vital Signs - 24 hr 12/06/22 21:24 12/07/22 08:00 Temperature 97.8 F 97.2 F Pulse Rate 88 100 Respiratory Rate 18 Blood Pressure 151/84 H 120/68 Pulse Oximetry 98 99 Oxygen Delivery Method Room Air Room Air BMI result Body Mass Index 22.4 Labs 11/26/22 16:53 12/05/22 08:37 Labs: Laboratory Results - last 48 hr 12/06/22 12/07/22 12/07/22 08:32 08:38 09:39 POC Glucose 202 H 268 H C-Reactive Protein [place] 0.82 12/07/22 09:39 POC Glucose C-Reactive Protein 0.28 [place] Medications Medications Current Medications Acetaminophen (Acetaminophen 325 Mg Tablet) 650 mg PO Q6H PRN PRN Reason: Headache/Pain Mild Scale (1-3) Last Admin: 12/03/22 05:37 Dose: 650 mg Al Hydroxide/Mg Hydroxide (Magnesium Hydrox/Alum Hydrox 30 Ml Oral.Susp) 30 ml PO Q6H PRN PRN Reason: Heartburn/Nausea Doxycycline Monohydrate (Doxycycline Monohydrate 100 Mg Capsule) 100 mg PO Q12H [facility] Last Admin: 12/07/22 08:43 Dose: 100 mg Hydroxyzine HCl (Hydroxyzine Hcl 25 Mg Tablet) 25 mg PO Q6H PRN PRN Reason: Anxiety Last Admin: 12/06/22 21:18 Dose: 25 mg [place] Carbonate ([place] Carbonate 300 Mg Tablet) 450 mg PO BID [facility] Last Admin: 12/07/22 08:42 Dose: 450 mg Lorazepam (Lorazepam 1 Mg Tablet) 1 mg PO BEDTIME [facility] Last Admin: 12/06/22 21:18 Dose: 1 mg Lorazepam (Lorazepam 1 Mg Tablet) 2 mg PO Q6H PRN PRN Reason: agitation/sleep Last Admin: 12/06/22 22:47 Dose: 2 mg Magnesium Hydroxide (Milk Of Magnesia 30 Ml Oral.Susp) 30 ml PO DAILY PRN PRN Reason: Constipation Metformin HCl (Metformin Hcl 500 Mg Tablet) 500 mg PO BIDWM [facility] Last Admin: 12/07/22 08:43 Dose: 500 mg Mupirocin (Mupirocin 2 % Oint 22 Gm Tube) 1 appl TOPICAL TID [facility]; Protocol Last Admin: 12/07/22 14:42 Dose: 1 appl Olanzapine (Olanzapine Odt 10 Mg Tab.Rapdis) 10 mg TRANSLINGU Q6H PRN PRN Reason: agitation Last Admin: 12/06/22 21:18 Dose: 10 mg Trazodone HCl (Trazodone Hcl 50 Mg Tablet) 50 mg PO BEDTIME PRN PRN Reason: Insomnia Last Admin: 12/06/22 21:18 Dose: 50 mg Ziprasidone (Ziprasidone 40 Mg Capsule) 40 mg PO BIDWM [facility] Last Admin: 12/07/22 08:43 Dose: 40 mg Allergies Allergies Allergy/AdvReac Type Severity Reaction Status Date / Time No Known Allergies Allergy Verified 11/26/22 16:38 Assessment & Plan Assessment & Plan (1) Bipolar 1 disorder, manic, moderate: Status: Acute Code(s): F31.12 - Bipolar disorder, current episode manic without psychotic features, moderate Plan Mr Montero is a 52 year-old male with no prior hx of psychiatric symptoms brought in by family as pt presenting as paranoid towards partner, more irritable, not sleeping impulsive/reckless behaviors such as randomly given money to strangers. Utox negative. Pt does note some changes in behavior but minimizes and lacks insight as to concerns in changes in behaviors. We discussed risks, befits and alternative treatment options. At the moment, pt does not want scheduled medications. PLAN 1. Admit to M3, Cv 15 minutes checks 2. obtain collateral information 3. Aftercare planning. 11/30 start lithium 300mg po BID, geodon 20mg po daily 12/01 increased Geodon 20 mg po bid with meals. 12/02 keep same treatment. 12/03 increased lithium to 450 BID from 300 BID. 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 slept only 3 hrs overnight. medical consult for eval of raised, weeping lesions on occipital scalp. 12/04 continue current medications, lithium increased yesterday. Will add prn Olanzapine and ativan for agitation. scheduled ativan 1 mg po qhs for sleep. 12/05 continue current medications. 12/06 continue tx. will add crp, shanti, head CT 12/07: CRP WNL. CT not yet read, autoimmune assays not back yet. continue current mgmt. Reason for contiued inpatient stay Substantial Risk for: inability to function and rapid decompensation Time Spent With Patient Time: Total time managing care of this patient today _25___ minutes.
[2022-12-07 21:25] VITALS: BP 129/74; PULSE 90; TEMP 36.8; O2SAT 97
[2022-12-07] MEDS: OLANZapine ODT 10 MG TAB.RAPDIS TRANSLINGU (21:30)
[2022-12-07] MEDS: LORazepam 1 MG TABLET PO (21:30)
[2022-12-08 06:00] VITALS: BP 135/87; PULSE 96; TEMP 36.6; O2SAT 98
[2022-12-08 07:55] LABS: Glucose, Whole Blood 244 mg/dL (60-115)
[2022-12-08] MEDS: Lithium Carbonate 300 MG TABLET 450 MG PO ×2 (08:00→20:50)
[2022-12-08] MEDS: metFORMIN HCl 500 MG TABLET PO ×2 (08:01→17:52)
[2022-12-08] MEDS: Ziprasidone 40 MG CAPSULE PO ×2 (08:01→17:52)
[2022-12-08] MEDS: Doxycycline Monohydrate 100 MG CAPSULE PO ×2 (08:01→20:50)
[2022-12-08] MEDS: Mupirocin 2 % Oint 22 GM TUBE 1 APPL TOPICAL ×3 (08:02→20:51)
[2022-12-08 14:50] VITALS: BP 128/79; PULSE 93
[2022-12-08] MEDS: OLANZapine ODT 10 MG TAB.RAPDIS TRANSLINGU (20:50)
[2022-12-08] MEDS: LORazepam 1 MG TABLET PO (20:51)
[2022-12-08 20:56] VITALS: BP 140/82; PULSE 106; TEMP 36.4; O2SAT 98
--- NOTE | 2022-12-08 22:08 | HO.PSYCHPN ---
Subjective Subjective Date of Service: 12/08/22 Reason For Visit: jon Interim History: calm, cooperative. Seen in the common area. Reports feeling good . Denies depression or AVH. Some irritability continues. Adherent to medications. Denies SI. Review of Systems Review of Systems He denies chest pain, SOB, no changes in vision, no headache. No hx of seizures or cancer. Mental Status Exam Mental Status Exam Narrative: Appearance: atreet clothes, thin, in NAD behavior: cooperative Psychomotor: no agitation or retardation noted Speech: clear, normal rate/rhythm/volume, spontaneous TP: linear TC: no delusions or paranoia expressed. asking for discharge. Mood: good Affect: irritable, min-labile Si: none expressed HI: none expressed VH/AH: none reported Insight/judgment: fair x 2. Memory/cog: alert, oriented x 3. Patient Appearance: Appropriate Patient Orientation: Person and Situation Level of Consciousness: Awake Patient Behavior: Guarded and Passive Mood Description: Withdrawn Affect Description: Constricted Patient Cognition Impaired: Yes Ability to Follow Directions: Fair Speech Pattern: Clear Diagnostics Vital Signs (24Hr): Vital Signs - 24 hr 12/08/22 06:00 12/08/22 14:50 12/08/22 20:56 Temperature 97.8 F 97.5 F Pulse Rate 96 93 106 H Blood Pressure 135/87 128/79 140/82 H Pulse Oximetry 98 98 Oxygen Delivery Method Room Air Room Air BMI result Body Mass Index 22.4 Labs 11/26/22 16:53 12/05/22 08:37 Labs: Laboratory Results - last 48 hr 12/07/22 12/07/22 12/07/22 08:38 09:39 09:39 POC Glucose 268 H C-Reactive Protein 0.28 [place] 0.82 12/08/22 07:52 POC Glucose 244 H C-Reactive Protein [place] Imaging Radiology Impressions: ITS Impressions Head CT 12/07/22 09:45 IMPRESSION: No acute intracranial process seen. Medications Medications Current Medications Acetaminophen (Acetaminophen 325 Mg Tablet) 650 mg PO Q6H PRN PRN Reason: Headache/Pain Mild Scale (1-3) Last Admin: 12/03/22 05:37 Dose: 650 mg Al Hydroxide/Mg Hydroxide (Magnesium Hydrox/Alum Hydrox 30 Ml Oral.Susp) 30 ml PO Q6H PRN PRN Reason: Heartburn/Nausea Doxycycline Monohydrate (Doxycycline Monohydrate 100 Mg Capsule) 100 mg PO Q12H [facility] Last Admin: 12/08/22 20:50 Dose: 100 mg Hydroxyzine HCl (Hydroxyzine Hcl 25 Mg Tablet) 25 mg PO Q6H PRN PRN Reason: Anxiety Last Admin: 12/06/22 21:18 Dose: 25 mg [place] Carbonate ([place] Carbonate 300 Mg Tablet) 450 mg PO BID [facility] Last Admin: 12/08/22 20:50 Dose: 450 mg Lorazepam (Lorazepam 1 Mg Tablet) 1 mg PO BEDTIME [facility] Last Admin: 12/08/22 20:51 Dose: 1 mg Lorazepam (Lorazepam 1 Mg Tablet) 2 mg PO Q6H PRN PRN Reason: agitation/sleep Last Admin: 12/06/22 22:47 Dose: 2 mg Magnesium Hydroxide (Milk Of Magnesia 30 Ml Oral.Susp) 30 ml PO DAILY PRN PRN Reason: Constipation Metformin HCl (Metformin Hcl 500 Mg Tablet) 500 mg PO BIDWM [facility] Last Admin: 12/08/22 17:52 Dose: 500 mg Mupirocin (Mupirocin 2 % Oint 22 Gm Tube) 1 appl TOPICAL TID [facility]; Protocol Last Admin: 12/08/22 20:51 Dose: 1 appl Olanzapine (Olanzapine Odt 10 Mg Tab.Rapdis) 10 mg TRANSLINGU Q6H PRN PRN Reason: agitation Last Admin: 12/08/22 20:50 Dose: 10 mg Trazodone HCl (Trazodone Hcl 50 Mg Tablet) 50 mg PO BEDTIME PRN PRN Reason: Insomnia Last Admin: 12/06/22 21:18 Dose: 50 mg Ziprasidone (Ziprasidone 40 Mg Capsule) 40 mg PO BIDWM [facility] Last Admin: 12/08/22 17:52 Dose: 40 mg Allergies Allergies Allergy/AdvReac Type Severity Reaction Status Date / Time No Known Allergies Allergy Verified 11/26/22 16:38 Assessment & Plan Assessment & Plan (1) Bipolar 1 disorder, manic, moderate: Status: Acute Code(s): F31.12 - Bipolar disorder, current episode manic without psychotic features, moderate Plan Mr Montero is a 52 year-old male with no prior hx of psychiatric symptoms brought in by family as pt presenting as paranoid towards partner, more irritable, not sleeping impulsive/reckless behaviors such as randomly given money to strangers. Utox negative. Pt does note some changes in behavior but minimizes and lacks insight as to concerns in changes in behaviors. We discussed risks, befits and alternative treatment options. At the moment, pt does not want scheduled medications. PLAN 1. Admit to M3, Cv 15 minutes checks 2. obtain collateral information 3. Aftercare planning. 11/30 start lithium 300mg po BID, geodon 20mg po daily 12/01 increased Geodon 20 mg po bid with meals. 12/02 keep same treatment. 12/03 increased lithium to 450 BID from 300 BID. 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 slept only 3 hrs overnight. medical consult for eval of raised, weeping lesions on occipital scalp. 12/04 continue current medications, lithium increased yesterday. Will add prn Olanzapine and ativan for agitation. scheduled ativan 1 mg po qhs for sleep. 12/05 continue current medications. 12/06 continue tx. will add crp, shanti, head CT 12/07: CRP WNL. CT not yet read, autoimmune assays not back yet. continue current mgmt. 12/08:Continue current treatment plan. Reason for contiued inpatient stay Substantial Risk for: inability to function and rapid decompensation Time Spent With Patient Time: Total time managing care of this patient today ____ minutes.
[2022-12-09 07:50] LABS: Glucose, Whole Blood 241 mg/dL (60-115)
[2022-12-09] MEDS: Ziprasidone 40 MG CAPSULE PO ×2 (07:53→18:31)
[2022-12-09] MEDS: Doxycycline Monohydrate 100 MG CAPSULE PO ×2 (07:53→21:28)
[2022-12-09] MEDS: metFORMIN HCl 500 MG TABLET PO ×2 (07:53→18:31)
[2022-12-09] MEDS: Lithium Carbonate 300 MG TABLET 450 MG PO ×2 (07:54→21:28)
[2022-12-09 08:00] VITALS: BP 125/74; PULSE 86; TEMP 36.2; O2SAT 98
[2022-12-09] MEDS: Mupirocin 2 % Oint 22 GM TUBE 1 APPL TOPICAL ×2 (16:03→22:12)
[2022-12-09 21:20] VITALS: BP 140/75; PULSE 92; RESP 18; TEMP 36.6; O2SAT 96
[2022-12-09] MEDS: hydrOXYzine HCL 25 MG TABLET PO (21:28)
[2022-12-09] MEDS: OLANZapine ODT 10 MG TAB.RAPDIS TRANSLINGU (21:28)
[2022-12-09] MEDS: traZODone HCL 50 MG TABLET PO (21:28)
--- NOTE | 2022-12-09 22:10 | HO.PSYCHPN ---
Subjective Subjective Date of Service: 12/09/22 Reason For Visit: jon Interim History: calm, cooperative. Seen in the common area. Reports feeling good . Denies depression or AVH. More pleasant today and less guarded. Had a lot of family visitors yesterday. Adherent to medications. Denies SI. Review of Systems Review of Systems He denies chest pain, SOB, no changes in vision, no headache. No hx of seizures or cancer. Mental Status Exam Mental Status Exam Narrative: Appearance: atreet clothes, thin, in NAD behavior: cooperative Psychomotor: no agitation or retardation noted Speech: clear, normal rate/rhythm/volume, spontaneous TP: linear TC: no delusions or paranoia expressed. asking for discharge. Mood: good Affect: irritable, min-labile Si: none expressed HI: none expressed VH/AH: none reported Insight/judgment: fair x 2. Memory/cog: alert, oriented x 3. Patient Appearance: Appropriate Patient Orientation: Person and Situation Level of Consciousness: Awake Patient Behavior: Guarded and Passive Mood Description: Withdrawn Affect Description: Constricted Patient Cognition Impaired: Yes Ability to Follow Directions: Fair Speech Pattern: Clear Diagnostics Vital Signs (24Hr): Vital Signs - 24 hr 12/09/22 08:00 Temperature 97.2 F Pulse Rate 86 Blood Pressure 125/74 Pulse Oximetry 98 Oxygen Delivery Method Room Air BMI result Body Mass Index 22.4 Labs 11/26/22 16:53 12/05/22 08:37 Labs: Laboratory Results - last 48 hr 12/08/22 12/09/22 07:52 07:45 POC Glucose 244 H 241 H Imaging Radiology Impressions: ITS Impressions Head CT 12/07/22 09:45 IMPRESSION: No acute intracranial process seen. Medications Medications Current Medications Acetaminophen (Acetaminophen 325 Mg Tablet) 650 mg PO Q6H PRN PRN Reason: Headache/Pain Mild Scale (1-3) Last Admin: 12/03/22 05:37 Dose: 650 mg Al Hydroxide/Mg Hydroxide (Magnesium Hydrox/Alum Hydrox 30 Ml Oral.Susp) 30 ml PO Q6H PRN PRN Reason: Heartburn/Nausea Doxycycline Monohydrate (Doxycycline Monohydrate 100 Mg Capsule) 100 mg PO Q12H [facility] Last Admin: 12/09/22 21:28 Dose: 100 mg Hydroxyzine HCl (Hydroxyzine Hcl 25 Mg Tablet) 25 mg PO Q6H PRN PRN Reason: Anxiety Last Admin: 12/09/22 21:28 Dose: 25 mg [place] Carbonate ([place] Carbonate 300 Mg Tablet) 450 mg PO BID [facility] Last Admin: 12/09/22 21:28 Dose: 450 mg Lorazepam (Lorazepam 1 Mg Tablet) 2 mg PO Q6H PRN PRN Reason: agitation/sleep Last Admin: 12/06/22 22:47 Dose: 2 mg Lorazepam (Lorazepam 1 Mg Tablet) 1 mg PO BEDTIME [facility] Magnesium Hydroxide (Milk Of Magnesia 30 Ml Oral.Susp) 30 ml PO DAILY PRN PRN Reason: Constipation Metformin HCl (Metformin Hcl 500 Mg Tablet) 500 mg PO BIDWM [facility] Last Admin: 12/09/22 18:31 Dose: 500 mg Mupirocin (Mupirocin 2 % Oint 22 Gm Tube) 1 appl TOPICAL TID [facility]; Protocol Last Admin: 12/09/22 16:03 Dose: 1 appl Olanzapine (Olanzapine Odt 10 Mg Tab.Rapdis) 10 mg TRANSLINGU Q6H PRN PRN Reason: agitation Last Admin: 12/09/22 21:28 Dose: 10 mg Trazodone HCl (Trazodone Hcl 50 Mg Tablet) 50 mg PO BEDTIME PRN PRN Reason: Insomnia Last Admin: 12/09/22 21:28 Dose: 50 mg Ziprasidone (Ziprasidone 40 Mg Capsule) 40 mg PO BIDWM [facility] Last Admin: 12/09/22 18:31 Dose: 40 mg Allergies Allergies Allergy/AdvReac Type Severity Reaction Status Date / Time No Known Allergies Allergy Verified 11/26/22 16:38 Assessment & Plan Assessment & Plan (1) Bipolar 1 disorder, manic, moderate: Status: Acute Code(s): F31.12 - Bipolar disorder, current episode manic without psychotic features, moderate Plan Mr Montero is a 52 year-old male with no prior hx of psychiatric symptoms brought in by family as pt presenting as paranoid towards partner, more irritable, not sleeping impulsive/reckless behaviors such as randomly given money to strangers. Utox negative. Pt does note some changes in behavior but minimizes and lacks insight as to concerns in changes in behaviors. We discussed risks, befits and alternative treatment options. At the moment, pt does not want scheduled medications. PLAN 1. Admit to M3, Cv 15 minutes checks 2. obtain collateral information 3. Aftercare planning. 11/30 start lithium 300mg po BID, geodon 20mg po daily 12/01 increased Geodon 20 mg po bid with meals. 12/02 keep same treatment. 12/03 increased lithium to 450 BID from 300 BID. 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 slept only 3 hrs overnight. medical consult for eval of raised, weeping lesions on occipital scalp. 12/04 continue current medications, lithium increased yesterday. Will add prn Olanzapine and ativan for agitation. scheduled ativan 1 mg po qhs for sleep. 12/05 continue current medications. 12/06 continue tx. will add crp, shanti, head CT 12/07: CRP WNL. CT not yet read, autoimmune assays not back yet. continue current mgmt. 12/08:Continue current treatment plan. 12/09: Continue treatment plan. Reason for contiued inpatient stay Substantial Risk for: harm to others, inability to function and rapid decompensation Time Spent With Patient Time: Total time managing care of this patient today ____ minutes.
[2022-12-09] MEDS: LORazepam 1 MG TABLET PO (22:12)
[2022-12-10] MEDS: LORazepam 1 MG TABLET 2 MG PO (00:53)
[2022-12-10] MEDS: traZODone HCL 50 MG TABLET PO ×2 (00:53→22:31)
[2022-12-10 08:31] LABS: Glucose, Whole Blood 301 mg/dL (60-115)
[2022-12-10] MEDS: metFORMIN HCl 500 MG TABLET PO ×2 (08:47→18:03)
[2022-12-10] MEDS: Lithium Carbonate 300 MG TABLET 450 MG PO ×2 (08:47→22:31)
[2022-12-10] MEDS: Ziprasidone 40 MG CAPSULE PO ×2 (08:47→18:03)
[2022-12-10] MEDS: Doxycycline Monohydrate 100 MG CAPSULE PO ×2 (08:48→22:31)
[2022-12-10 09:06] VITALS: BP 115/68; PULSE 73; RESP 14; TEMP 36.3; O2SAT 99
--- NOTE | 2022-12-10 09:30 | HO.PSYCHPN ---
Subjective Subjective Date of Service: 12/10/22 Reason For Visit: jon Subjective Notes: Conditional Voluntary Interim History: Pt is calmer, but continues to report grandiose ideas of leading a process for people to become better human beings. He reports he is helping other pts here. He denies SI/HI. No overt AH/VH. This teletypewriter installer spoke with who reports pt better, calmer but still not at baseline. Discussed medical findings with - mostly unremarkable. Medication Compliance: Yes Review of Systems Review of Systems He denies chest pain, SOB, no changes in vision, no headache. No hx of seizures or cancer. Mental Status Exam Mental Status Exam Narrative: Appearance: atreet clothes, thin, in NAD behavior: cooperative Psychomotor: no agitation or retardation noted Speech: clear, normal rate/rhythm/volume, spontaneous TP: linear TC: no delusions or paranoia expressed. asking for discharge. Mood: good Affect: irritable, min-labile Si: none expressed HI: none expressed VH/AH: none reported Insight/judgment: fair x 2. Memory/cog: alert, oriented x 3. Diagnostics Vital Signs (24Hr): Vital Signs - 24 hr 12/09/22 21:20 12/10/22 09:06 Temperature 97.8 F 97.3 F Pulse Rate 92 73 Respiratory Rate 18 14 Blood Pressure 140/75 H 115/68 Pulse Oximetry 96 99 Oxygen Delivery Method Room Air Room Air BMI result Body Mass Index 22.4 Labs 11/26/22 16:53 12/05/22 08:37 Labs: Laboratory Results - last 48 hr 12/09/22 12/10/22 07:45 08:27 POC Glucose 241 H 301 H Imaging Radiology Impressions: ITS Impressions Head CT 12/07/22 09:45 IMPRESSION: No acute intracranial process seen. Medications Medications Current Medications Acetaminophen (Acetaminophen 325 Mg Tablet) 650 mg PO Q6H PRN PRN Reason: Headache/Pain Mild Scale (1-3) Last Admin: 12/03/22 05:37 Dose: 650 mg Al Hydroxide/Mg Hydroxide (Magnesium Hydrox/Alum Hydrox 30 Ml Oral.Susp) 30 ml PO Q6H PRN PRN Reason: Heartburn/Nausea Doxycycline Monohydrate (Doxycycline Monohydrate 100 Mg Capsule) 100 mg PO Q12H REEMA Last Admin: 12/10/22 08:48 Dose: 100 mg Hydroxyzine HCl (Hydroxyzine Hcl 25 Mg Tablet) 25 mg PO Q6H PRN PRN Reason: Anxiety Last Admin: 12/09/22 21:28 Dose: 25 mg [place] Carbonate ([place] Carbonate 300 Mg Tablet) 450 mg PO BID REEMA Last Admin: 12/10/22 08:47 Dose: 450 mg Lorazepam (Lorazepam 1 Mg Tablet) 2 mg PO Q6H PRN PRN Reason: agitation/sleep Last Admin: 12/10/22 00:53 Dose: 2 mg Lorazepam (Lorazepam 1 Mg Tablet) 1 mg PO BEDTIME REEMA Last Admin: 12/09/22 22:12 Dose: 1 mg Magnesium Hydroxide (Milk Of Magnesia 30 Ml Oral.Susp) 30 ml PO DAILY PRN PRN Reason: Constipation Metformin HCl (Metformin Hcl 500 Mg Tablet) 500 mg PO BIDWM REEMA Last Admin: 12/10/22 08:47 Dose: 500 mg Mupirocin (Mupirocin 2 % Oint 22 Gm Tube) 1 appl TOPICAL TID REEMA; Protocol Last Admin: 12/10/22 08:49 Dose: Not Given Olanzapine (Olanzapine Odt 10 Mg Tab.Rapdis) 10 mg TRANSLINGU Q6H PRN PRN Reason: agitation Last Admin: 12/09/22 21:28 Dose: 10 mg Trazodone HCl (Trazodone Hcl 50 Mg Tablet) 50 mg PO BEDTIME PRN PRN Reason: Insomnia Last Admin: 12/10/22 00:53 Dose: 50 mg Ziprasidone (Ziprasidone 40 Mg Capsule) 40 mg PO BIDWM REEMA Last Admin: 12/10/22 08:47 Dose: 40 mg Allergies Allergies Allergy/AdvReac Type Severity Reaction Status Date / Time No Known Allergies Allergy Verified 11/26/22 16:38 Assessment & Plan Assessment & Plan (1) Bipolar 1 disorder, manic, moderate: Status: Acute Code(s): F31.12 - Bipolar disorder, current episode manic without psychotic features, moderate Plan Mr Montero is a 52 year-old male with no prior hx of psychiatric symptoms brought in by family as pt presenting as paranoid towards partner, more irritable, not sleeping impulsive/reckless behaviors such as randomly given money to strangers. Utox negative. Pt does note some changes in behavior but minimizes and lacks insight as to concerns in changes in behaviors. We discussed risks, befits and alternative treatment options. At the moment, pt does not want scheduled medications. PLAN 1. Admit to M3, Cv 15 minutes checks 2. obtain collateral information 3. Aftercare planning. 11/30 start lithium 300mg po BID, geodon 20mg po daily 12/01 increased Geodon 20 mg po bid with meals. 12/02 keep same treatment. 12/03 increased lithium to 450 BID from 300 BID. 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 slept only 3 hrs overnight. medical consult for eval of raised, weeping lesions on occipital scalp. 12/04 continue current medications, lithium increased yesterday. Will add prn Olanzapine and ativan for agitation. scheduled ativan 1 mg po qhs for sleep. 12/05 continue current medications. 12/06 continue tx. will add crp, shanti, head CT 12/07: CRP WNL. CT not yet read, autoimmune assays not back yet. continue current mgmt. 12/08:Continue current treatment plan. 12/09: Continue treatment plan. 12/10 continue tx. Reason for contiued inpatient stay Substantial Risk for: harm to others and inability to function Time Spent With Patient Time: Total time managing care of this patient today ____ minutes.
[2022-12-10] MEDS: Mupirocin 2 % Oint 22 GM TUBE 1 APPL TOPICAL ×2 (18:03→22:36)
[2022-12-10 22:28] VITALS: BP 137/81; PULSE 95; RESP 18; TEMP 36.3; O2SAT 100
[2022-12-10] MEDS: OLANZapine ODT 10 MG TAB.RAPDIS TRANSLINGU (22:31)
[2022-12-10] MEDS: hydrOXYzine HCL 25 MG TABLET PO (22:31)
[2022-12-10] MEDS: LORazepam 1 MG TABLET PO (22:31)
[2022-12-11] MEDS: traZODone HCL 50 MG TABLET PO (00:17)
[2022-12-11] MEDS: LORazepam 1 MG TABLET 2 MG PO (00:17)
[2022-12-11 08:18] LABS: Glucose, Whole Blood 235 mg/dL (60-115)
[2022-12-11] MEDS: Lithium Carbonate 300 MG TABLET 450 MG PO ×2 (08:24→21:29)
[2022-12-11] MEDS: metFORMIN HCl 500 MG TABLET PO ×2 (08:25→17:40)
[2022-12-11] MEDS: Doxycycline Monohydrate 100 MG CAPSULE PO ×2 (08:25→21:29)
[2022-12-11] MEDS: Ziprasidone 40 MG CAPSULE PO (08:25)
[2022-12-11] MEDS: Mupirocin 2 % Oint 22 GM TUBE 1 APPL TOPICAL ×2 (08:27→21:30)
[2022-12-11 08:29] VITALS: BP 121/77; PULSE 92; RESP 18; TEMP 36.7; O2SAT 98
--- NOTE | 2022-12-11 11:17 | HO.PSYCHPN ---
Subjective Subjective Date of Service: 12/11/22 Reason For Visit: jon Subjective Notes: Conditional Voluntary Interim History: Pt reports feeling calmer, less energy. He states he notes that without medication he would be exercising all day. Pt denies SI/HI. He is less paranoid about having affair. 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 We discussed increasing geodon, continuing lithium. Medication Compliance: Yes Review of Systems Review of Systems He denies chest pain, SOB, no changes in vision, no headache. No hx of seizures or cancer. Mental Status Exam Mental Status Exam Narrative: Appearance: atreet clothes, thin, in NAD behavior: cooperative Psychomotor: no agitation or retardation noted Speech: clear, normal rate/rhythm/volume, spontaneous TP: linear TC: no delusions or paranoia expressed. asking for discharge. Mood: good Affect: irritable, min-labile Si: none expressed HI: none expressed VH/AH: none reported Insight/judgment: fair x 2. Memory/cog: alert, oriented x 3. Diagnostics Vital Signs (24Hr): Vital Signs - 24 hr 12/10/22 22:28 12/11/22 08:29 Temperature 97.3 F 98.0 F Pulse Rate 95 92 Respiratory Rate 18 18 Blood Pressure 137/81 121/77 Pulse Oximetry 100 98 Oxygen Delivery Method Room Air Room Air BMI result Body Mass Index 22.4 Labs 11/26/22 16:53 12/05/22 08:37 Labs: Laboratory Results - last 48 hr 12/10/22 12/11/22 08:27 08:14 POC Glucose 301 H 235 H Imaging Radiology Impressions: ITS Impressions Head CT 12/07/22 09:45 IMPRESSION: No acute intracranial process seen. Medications Medications Current Medications Acetaminophen (Acetaminophen 325 Mg Tablet) 650 mg PO Q6H PRN PRN Reason: Headache/Pain Mild Scale (1-3) Last Admin: 12/03/22 05:37 Dose: 650 mg Al Hydroxide/Mg Hydroxide (Magnesium Hydrox/Alum Hydrox 30 Ml Oral.Susp) 30 ml PO Q6H PRN PRN Reason: Heartburn/Nausea Doxycycline Monohydrate (Doxycycline Monohydrate 100 Mg Capsule) 100 mg PO Q12H [facility] Last Admin: 12/11/22 08:25 Dose: 100 mg Hydroxyzine HCl (Hydroxyzine Hcl 25 Mg Tablet) 25 mg PO Q6H PRN PRN Reason: Anxiety Last Admin: 12/10/22 22:31 Dose: 25 mg [place] Carbonate ([place] Carbonate 300 Mg Tablet) 450 mg PO BID REEMA Last Admin: 12/11/22 08:24 Dose: 450 mg Lorazepam (Lorazepam 1 Mg Tablet) 1 mg PO BEDTIME REEMA Last Admin: 12/10/22 22:31 Dose: 1 mg Lorazepam (Lorazepam 1 Mg Tablet) 2 mg PO Q6H PRN PRN Reason: agitation/sleep Last Admin: 12/11/22 00:17 Dose: 2 mg Magnesium Hydroxide (Milk Of Magnesia 30 Ml Oral.Susp) 30 ml PO DAILY PRN PRN Reason: Constipation Metformin HCl (Metformin Hcl 500 Mg Tablet) 500 mg PO BIDWM REEMA Last Admin: 12/11/22 08:25 Dose: 500 mg Mupirocin (Mupirocin 2 % Oint 22 Gm Tube) 1 appl TOPICAL TID REEMA; Protocol Last Admin: 12/11/22 08:27 Dose: 1 appl Olanzapine (Olanzapine Odt 10 Mg Tab.Rapdis) 10 mg TRANSLINGU Q6H PRN PRN Reason: agitation Last Admin: 12/10/22 22:31 Dose: 10 mg Trazodone HCl (Trazodone Hcl 50 Mg Tablet) 50 mg PO BEDTIME PRN PRN Reason: Insomnia Last Admin: 12/11/22 00:17 Dose: 50 mg Ziprasidone (Ziprasidone 60 Mg Capsule) 60 mg PO BIDWM [facility] Allergies Allergies Allergy/AdvReac Type Severity Reaction Status Date / Time No Known Allergies Allergy Verified 11/26/22 16:38 Assessment & Plan Assessment & Plan (1) Bipolar 1 disorder, manic, moderate: Status: Acute Code(s): F31.12 - Bipolar disorder, current episode manic without psychotic features, moderate Plan Mr Montero is a 52 year-old male with no prior hx of psychiatric symptoms brought in by family as pt presenting as paranoid towards partner, more irritable, not sleeping impulsive/reckless behaviors such as randomly given money to strangers. Utox negative. Pt does note some changes in behavior but minimizes and lacks insight as to concerns in changes in behaviors. We discussed risks, befits and alternative treatment options. At the moment, pt does not want scheduled medications. PLAN 1. Admit to M3, Cv 15 minutes checks 2. obtain collateral information 3. Aftercare planning. 11/30 start lithium 300mg po BID, geodon 20mg po daily 12/01 increased Geodon 20 mg po bid with meals. 12/02 keep same treatment. 12/03 increased lithium to 450 BID from 300 BID. 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 slept only 3 hrs overnight. medical consult for eval of raised, weeping lesions on occipital scalp. 12/04 continue current medications, lithium increased yesterday. Will add prn Olanzapine and ativan for agitation. scheduled ativan 1 mg po qhs for sleep. 12/05 continue current medications. 12/06 continue tx. will add crp, shanti, head CT 12/07: CRP WNL. CT not yet read, autoimmune assays not back yet. continue current mgmt. 12/08:Continue current treatment plan. 12/09: Continue treatment plan. 12/10 continue tx. 12/11 increase geodone to 60mg po BIDWM. continue lithium. Reason for contiued inpatient stay Substantial Risk for: inability to function Time Spent With Patient Time: Total time managing care of this patient today ____ minutes.
[2022-12-11 13:44] LABS: Anti Nuclear Antibody Pattern Nuclear, Speckled; Anti Nuclear Antibody Screen POSITIVE (NEGATIVE)
[2022-12-11] MEDS: Ziprasidone 60 MG CAPSULE PO (17:40)
[2022-12-11 20:09] VITALS: BP 134/66; PULSE 87; RESP 16; TEMP 36.7; O2SAT 99
[2022-12-11] MEDS: LORazepam 1 MG TABLET PO (21:29)
[2022-12-12 06:00] VITALS: BP 130/74; PULSE 88; RESP 16; TEMP 36.8; O2SAT 99
[2022-12-12] MEDS: Lithium Carbonate 300 MG TABLET 450 MG PO ×2 (08:45→21:45)
[2022-12-12] MEDS: metFORMIN HCl 500 MG TABLET PO ×2 (08:45→17:48)
[2022-12-12] MEDS: Doxycycline Monohydrate 100 MG CAPSULE PO ×2 (08:45→21:45)
[2022-12-12] MEDS: Mupirocin 2 % Oint 22 GM TUBE 1 APPL TOPICAL ×3 (08:45→21:45)
[2022-12-12] MEDS: Ziprasidone 60 MG CAPSULE PO ×2 (08:45→17:47)
[2022-12-12 12:14] LABS: Glucose, Whole Blood 319 mg/dL (60-115)
--- NOTE | 2022-12-12 16:22 | P.PNPSI_ITS ---
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 calm, cooperative. c/o burning sensation on his tongue since starting antibx. feeling fine otherwise. not requesting discharge. per staff, isolative. not attending groups. +ADLs. eating and sleeping well. denies SI/HI/AVH. lots of exercise on the unit. Mental Status Exam Mental Status Exam Narrative: Appearance: street clothes, thin, in NAD behavior: cooperative Psychomotor: no agitation or retardation noted Speech: clear, normal rate/rhythm/volume, spontaneous TP: linear TC: no delusions or paranoia expressed. Mood: fine Affect: non-labile, constricted SI: none expressed HI: none expressed VH/AH: none reported Insight/judgment: fair x 2. Memory/cog: alert, oriented x 3. Diagnostics Vital Signs (24Hr): Vital Signs - 24 hr 12/11/22 20:09 12/12/22 06:00 Temperature 98.1 F 98.2 F Pulse Rate 87 88 Respiratory Rate 16 16 Blood Pressure 134/66 130/74 Pulse Oximetry 99 99 Oxygen Delivery Method Room Air Room Air BMI result Body Mass Index 22.4 Labs 11/26/22 16:53 12/05/22 08:37 Labs: Laboratory Results - last 48 hr 12/07/22 12/11/22 12/12/22 09:39 08:14 08:42 POC Glucose 235 H 319 H SHANTI Screen POSITIVE A SHANTI Titer 1:80 H SHANTI Titer 2 TNP SHANTI Titer 3 TNP SHANTI Pattern Nuclear, Speckled A SHANTI Pattern 2 TNP SHANTI Pattern 3 TNP Imaging Radiology Impressions: ITS Impressions Head CT 12/07/22 09:45 IMPRESSION: No acute intracranial process seen. Medications Medications Current Medications Acetaminophen (Acetaminophen 325 Mg Tablet) 650 mg PO Q6H PRN PRN Reason: Headache/Pain Mild Scale (1-3) Last Admin: 12/03/22 05:37 Dose: 650 mg Al Hydroxide/Mg Hydroxide (Magnesium Hydrox/Alum Hydrox 30 Ml Oral.Susp) 30 ml PO Q6H PRN PRN Reason: Heartburn/Nausea Doxycycline Monohydrate (Doxycycline Monohydrate 100 Mg Capsule) 100 mg PO Q12H REPLACED BY [facility] Last Admin: 12/12/22 08:45 Dose: 100 mg Hydroxyzine HCl (Hydroxyzine Hcl 25 Mg Tablet) 25 mg PO Q6H PRN PRN Reason: Anxiety Last Admin: 12/10/22 22:31 Dose: 25 mg [place] Carbonate ([place] Carbonate 300 Mg Tablet) 450 mg PO BID REPLACED BY [facility] Last Admin: 12/12/22 08:45 Dose: 450 mg Lorazepam (Lorazepam 1 Mg Tablet) 1 mg PO BEDTIME REEMA Last Admin: 12/11/22 21:29 Dose: 1 mg Lorazepam (Lorazepam 1 Mg Tablet) 2 mg PO Q6H PRN PRN Reason: agitation/sleep Last Admin: 12/11/22 00:17 Dose: 2 mg Magnesium Hydroxide (Milk Of Magnesia 30 Ml Oral.Susp) 30 ml PO DAILY PRN PRN Reason: Constipation Metformin HCl (Metformin Hcl 500 Mg Tablet) 500 mg PO BIDWM REPLACED BY [facility] Last Admin: 12/12/22 08:45 Dose: 500 mg Mupirocin (Mupirocin 2 % Oint 22 Gm Tube) 1 appl TOPICAL TID REPLACED BY [facility]; Protocol Last Admin: 12/12/22 16:17 Dose: 1 appl Olanzapine (Olanzapine Odt 10 Mg Tab.Rapdis) 10 mg TRANSLINGU Q6H PRN PRN Reason: agitation Last Admin: 12/10/22 22:31 Dose: 10 mg Trazodone HCl (Trazodone Hcl 50 Mg Tablet) 50 mg PO BEDTIME PRN PRN Reason: Insomnia Last Admin: 12/11/22 00:17 Dose: 50 mg Ziprasidone (Ziprasidone 60 Mg Capsule) 60 mg PO BIDWM REEMA Last Admin: 12/12/22 08:45 Dose: 60 mg Allergies Allergies Allergy/AdvReac Type Severity Reaction Status Date / Time No Known Allergies Allergy Verified 11/26/22 16:38 Assessment & Plan Assessment & Plan (1) Bipolar 1 disorder, manic, moderate: Status: Acute Code(s): F31.12 - Bipolar disorder, current episode manic without psychotic features, moderate Plan Mr Montero is a 52 year-old male with no prior hx of psychiatric symptoms brought in by family as pt presenting as paranoid towards partner, more irritable, not sleeping impulsive/reckless behaviors such as randomly given money to strangers. Utox negative. Pt does note some changes in behavior but minimizes and lacks insight as to concerns in changes in behaviors. We discussed risks, befits and alternative treatment options. At the moment, pt does not want scheduled medications. PLAN 1. Admit to M3, Cv 15 minutes checks 2. obtain collateral information 3. Aftercare planning. 11/30 start lithium 300mg po BID, geodon 20mg po daily 12/01 increased Geodon 20 mg po bid with meals. 12/02 keep same treatment. 12/03 increased lithium to 450 BID from 300 BID. 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 slept only 3 hrs overnight. medical consult for eval of raised, weeping lesions on occipital scalp. 12/04 continue current medications, lithium increased yesterday. Will add prn Olanzapine and ativan for agitation. scheduled ativan 1 mg po qhs for sleep. 12/05 continue current medications. 12/06 continue tx. will add crp, shanti, head CT 12/07: CRP WNL. CT not yet read, autoimmune assays not back yet. continue current mgmt. 12/08:Continue current treatment plan. 12/09: Continue treatment plan. 12/10 continue tx. 12/11 increase geodon to 60mg po BIDWM. continue lithium. 12/12: SHANTI POS 1:80 with nuclear speckled pattern, consistent with various auto- immune disorders. will order F/U labs in attempt to specify Dx. continue current mgmt otherwise. Reason for contiued inpatient stay Substantial Risk for: inability to function and med/psych decompensation Time Spent With Patient Time: Total time managing care of this patient today __35__ minutes.
[2022-12-12 20:21] VITALS: BP 142/84; PULSE 89; RESP 16; TEMP 36.4; O2SAT 98
[2022-12-12] MEDS: LORazepam 1 MG TABLET PO (21:45)
[2022-12-13 07:00] VITALS: BMI 23.3
[2022-12-13 08:00] VITALS: BP 137/80; PULSE 74; TEMP 36.3; O2SAT 100
[2022-12-13] MEDS: Doxycycline Monohydrate 100 MG CAPSULE PO ×2 (08:13→21:19)
[2022-12-13] MEDS: Ziprasidone 60 MG CAPSULE PO ×2 (08:13→18:00)
[2022-12-13] MEDS: metFORMIN HCl 500 MG TABLET PO ×2 (08:13→18:00)
[2022-12-13] MEDS: Lithium Carbonate 300 MG TABLET 450 MG PO ×2 (08:13→21:39)
[2022-12-13 08:38] LABS: Glucose, Whole Blood 393 mg/dL (60-115)
[2022-12-13] MEDS: Mupirocin 2 % Oint 22 GM TUBE 1 APPL TOPICAL ×3 (09:08→21:49)
[2022-12-13 10:48] LABS: Creatinine Clr Calc Pharmacy 84.5; Estimated Glomerular Filt Rate > 60
--- NOTE | 2022-12-13 11:12 | PC.NURSE ---
Spoke with patient and mine engineering manager. Explained to pt that MD placed orders for pt to have POC checked four times a day and to receive sliding scale insulin as needed. RN also provided teaching on limiting juice as it can raise sugar. Pt verbalized understanding and does not have any questions at this time.
[2022-12-13 12:49] LABS: Glucose, Whole Blood 281 mg/dL (60-115)
[2022-12-13] MEDS: Insulin Lispro 100 UNIT/ML 3 ML VIAL SUBCUT ×2 (13:03→17:59)
--- NOTE | 2022-12-13 16:29 | P.PNPSI_ITS ---
Subjective Subjective Date of Service: 12/13/22 Reason For Visit: jon Interim History: calm, cooperative, stable presentation. reports he slept well, no questions or complaints. per staff, visible. +ADLs. eating, sleeping. FSBS 393, SSI started. Mental Status Exam Mental Status Exam Narrative: Appearance: street clothes, thin, in NAD behavior: cooperative Psychomotor: no agitation or retardation noted Speech: clear, normal rate/rhythm/volume, spontaneous TP: linear TC: no delusions or paranoia expressed. Mood: fine Affect: non-labile, constricted SI: none expressed HI: none expressed VH/AH: none reported Insight/judgment: fair x 2. Memory/cog: alert, oriented x 3. Diagnostics Vital Signs (24Hr): Vital Signs - 24 hr 12/12/22 20:21 12/13/22 08:00 Temperature 97.6 F 97.4 F Pulse Rate 89 74 Respiratory Rate 16 Blood Pressure 142/84 H 137/80 Pulse Oximetry 98 100 Oxygen Delivery Method Room Air Room Air BMI result Body Mass Index 23.3 Labs 11/26/22 16:53 12/13/22 10:14 Labs: Laboratory Results - last 48 hr 12/12/22 12/13/22 12/13/22 08:42 07:59 10:14 Creatinine 1.01 Estim Creat Clear Calc 84.5 Estimated GFR > 60 POC Glucose 319 H 393 H* 12/13/22 12:45 Creatinine Estim Creat Clear Calc Estimated GFR POC Glucose 281 H Imaging Radiology Impressions: ITS Impressions Head CT 12/07/22 09:45 IMPRESSION: No acute intracranial process seen. Medications Medications Current Medications Acetaminophen (Acetaminophen 325 Mg Tablet) 650 mg PO Q6H PRN PRN Reason: Headache/Pain Mild Scale (1-3) Last Admin: 12/03/22 05:37 Dose: 650 mg Al Hydroxide/Mg Hydroxide (Magnesium Hydrox/Alum Hydrox 30 Ml Oral.Susp) 30 ml PO Q6H PRN PRN Reason: Heartburn/Nausea Doxycycline Monohydrate (Doxycycline Monohydrate 100 Mg Capsule) 100 mg PO Q12H [facility] Last Admin: 12/13/22 08:13 Dose: 100 mg Glucose (Glucose Gel 15 Gm Gel..Gram.) 15 gm PO Q15M PRN; Protocol PRN Reason: per Hypoglycemia Standing Ord. Hydroxyzine HCl (Hydroxyzine Hcl 25 Mg Tablet) 25 mg PO Q6H PRN PRN Reason: Anxiety Last Admin: 12/10/22 22:31 Dose: 25 mg Dextrose (D10) 250 mls @ 750 mls/hr IV Q15M PRN; Protocol PRN Reason: per Hypoglycemia Standing Ord. Insulin Human Lispro (Insulin Lispro 100 Unit/Ml 3 Ml Vial) 0 unit SUBCUT QIDACHS [facility]; Protocol Last Admin: 12/13/22 13:03 Dose: 6 unit [place] Carbonate ([place] Carbonate 300 Mg Tablet) 450 mg PO BID [facility] Last Admin: 12/13/22 08:13 Dose: 450 mg Lorazepam (Lorazepam 1 Mg Tablet) 1 mg PO BEDTIME REEMA Last Admin: 12/12/22 21:45 Dose: 1 mg Lorazepam (Lorazepam 1 Mg Tablet) 2 mg PO Q6H PRN PRN Reason: agitation/sleep Last Admin: 12/11/22 00:17 Dose: 2 mg Magnesium Hydroxide (Milk Of Magnesia 30 Ml Oral.Susp) 30 ml PO DAILY PRN PRN Reason: Constipation Metformin HCl (Metformin Hcl 500 Mg Tablet) 500 mg PO BIDWM [facility] Last Admin: 12/13/22 08:13 Dose: 500 mg Mupirocin (Mupirocin 2 % Oint 22 Gm Tube) 1 appl TOPICAL TID [facility]; Protocol Last Admin: 12/13/22 16:15 Dose: 1 appl Olanzapine (Olanzapine Odt 10 Mg Tab.Rapdis) 10 mg TRANSLINGU Q6H PRN PRN Reason: agitation Last Admin: 12/10/22 22:31 Dose: 10 mg Trazodone HCl (Trazodone Hcl 50 Mg Tablet) 50 mg PO BEDTIME PRN PRN Reason: Insomnia Last Admin: 12/11/22 00:17 Dose: 50 mg Ziprasidone (Ziprasidone 60 Mg Capsule) 60 mg PO BIDWM [facility] Last Admin: 12/13/22 08:13 Dose: 60 mg Allergies Allergies Allergy/AdvReac Type Severity Reaction Status Date / Time No Known Allergies Allergy Verified 11/26/22 16:38 Assessment & Plan Assessment & Plan (1) Bipolar 1 disorder, manic, moderate: Status: Acute Code(s): F31.12 - Bipolar disorder, current episode manic without psychotic features, moderate Plan Mr Montero is a 52 year-old male with no prior hx of psychiatric symptoms brought in by family as pt presenting as paranoid towards partner, more irritable, not sleeping impulsive/reckless behaviors such as randomly given money to strangers. Utox negative. Pt does note some changes in behavior but minimizes and lacks insight as to concerns in changes in behaviors. We discussed risks, befits and alternative treatment options. At the moment, pt does not want scheduled medications. PLAN 1. Admit to M3, Cv 15 minutes checks 2. obtain collateral information 3. Aftercare planning. 11/30 start lithium 300mg po BID, geodon 20mg po daily 12/01 increased Geodon 20 mg po bid with meals. 12/02 keep same treatment. 12/03 increased lithium to 450 BID from 300 BID. 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 slept only 3 hrs overnight. medical consult for eval of raised, weeping lesions on occipital scalp. 12/04 continue current medications, lithium increased yesterday. Will add prn Olanzapine and ativan for agitation. scheduled ativan 1 mg po qhs for sleep. 12/05 continue current medications. 12/06 continue tx. will add crp, shanti, head CT 12/07: CRP WNL. CT not yet read, autoimmune assays not back yet. continue current mgmt. 12/08:Continue current treatment plan. 12/09: Continue treatment plan. 12/10 continue tx. 12/11 increase geodon to 60mg po BIDWM. continue lithium. 12/12: SHANTI POS 1:80 with nuclear speckled pattern, consistent with various auto- immune disorders. will order F/U labs in attempt to specify Dx. continue current mgmt otherwise. 12/13: attempt to R/O SLE psychosis with further immuno-assays, ordered 12/13. stable clinical presentation at the moment. Reason for contiued inpatient stay Substantial Risk for: inability to function and med/psych decompensation Time Spent With Patient Time: Total time managing care of this patient today __35__ minutes.
[2022-12-13 17:53] LABS: Glucose, Whole Blood 208 mg/dL (60-115)
[2022-12-13 21:23] VITALS: BP 136/89; PULSE 72; RESP 18; TEMP 36.6; O2SAT 99
[2022-12-13 21:34] LABS: Glucose, Whole Blood 139 mg/dL (60-115)
[2022-12-13] MEDS: LORazepam 1 MG TABLET PO (21:39)
[2022-12-14 08:00] VITALS: BP 140/87; PULSE 76; TEMP 36.4; O2SAT 99
[2022-12-14 08:17] LABS: Glucose, Whole Blood 189 mg/dL (60-115)
[2022-12-14] MEDS: Lithium Carbonate 300 MG TABLET 450 MG PO ×2 (08:39→22:03)
[2022-12-14] MEDS: Ziprasidone 60 MG CAPSULE PO ×2 (08:39→17:48)
[2022-12-14] MEDS: metFORMIN HCl 500 MG TABLET PO ×2 (08:40→17:48)
[2022-12-14] MEDS: Doxycycline Monohydrate 100 MG CAPSULE PO ×2 (08:40→22:03)
[2022-12-14] MEDS: Insulin Lispro 100 UNIT/ML 3 ML VIAL SUBCUT ×4 (09:22→22:10)
[2022-12-14 10:10] LABS: Erythrocyte Sedimentation Rate 7 MM/HR (0-15)
[2022-12-14] MEDS: Mupirocin 2 % Oint 22 GM TUBE 1 APPL TOPICAL ×2 (10:10→22:03)
[2022-12-14 13:16] LABS: Glucose, Whole Blood 247 mg/dL (60-115)
--- NOTE | 2022-12-14 14:22 | P.PNPSI_ITS ---
Subjective Subjective Date of Service: 12/14/22 Reason For Visit: jon Interim History: calm, cooperative. 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 stated everything is fine, no questions or complaints. reports they pamela labs today. per staff, sleeping well. denies Sx. Mental Status Exam Mental Status Exam Narrative: Appearance: street clothes, thin, in NAD behavior: cooperative Psychomotor: no agitation or retardation noted Speech: clear, normal rate/rhythm/volume, spontaneous TP: linear TC: no delusions or paranoia expressed. Mood: fine Affect: non-labile, constricted SI: none expressed HI: none expressed VH/AH: none reported Insight/judgment: fair x 2. Memory/cog: alert, oriented x 3. Diagnostics Vital Signs (24Hr): Vital Signs - 24 hr 12/13/22 21:23 12/14/22 08:00 Temperature 97.8 F 97.6 F Pulse Rate 72 76 Respiratory Rate 18 Blood Pressure 136/89 140/87 H Pulse Oximetry 99 99 Oxygen Delivery Method Room Air Room Air BMI result Body Mass Index 23.3 Labs 11/26/22 16:53 12/13/22 10:14 Labs: Laboratory Results - last 48 hr 12/13/22 12/13/22 12/13/22 07:59 10:14 12:45 ESR Creatinine 1.01 Estim Creat Clear Calc 84.5 Estimated GFR > 60 POC Glucose 393 H* 281 H Total Creatine Kinase 12/13/22 12/13/22 12/14/22 17:48 21:29 08:13 ESR Creatinine Estim Creat Clear Calc Estimated GFR POC Glucose 208 H 139 H 189 H Total Creatine Kinase 12/14/22 12/14/22 12/14/22 09:09 09:09 13:11 ESR 7 Creatinine Estim Creat Clear Calc Estimated GFR POC Glucose 247 H Total Creatine Kinase 201 H Imaging Radiology Impressions: ITS Impressions Head CT 12/07/22 09:45 IMPRESSION: No acute intracranial process seen. Medications Medications Current Medications Acetaminophen (Acetaminophen 325 Mg Tablet) 650 mg PO Q6H PRN PRN Reason: Headache/Pain Mild Scale (1-3) Last Admin: 12/03/22 05:37 Dose: 650 mg Al Hydroxide/Mg Hydroxide (Magnesium Hydrox/Alum Hydrox 30 Ml Oral.Susp) 30 ml PO Q6H PRN PRN Reason: Heartburn/Nausea Doxycycline Monohydrate (Doxycycline Monohydrate 100 Mg Capsule) 100 mg PO Q12H [facility] Last Admin: 12/14/22 08:40 Dose: 100 mg Glucose (Glucose Gel 15 Gm Gel..Gram.) 15 gm PO Q15M PRN; Protocol PRN Reason: per Hypoglycemia Standing Ord. Hydroxyzine HCl (Hydroxyzine Hcl 25 Mg Tablet) 25 mg PO Q6H PRN PRN Reason: Anxiety Last Admin: 12/10/22 22:31 Dose: 25 mg Dextrose (D10) 250 mls @ 750 mls/hr IV Q15M PRN; Protocol PRN Reason: per Hypoglycemia Standing Ord. Insulin Human Lispro (Insulin Lispro 100 Unit/Ml 3 Ml Vial) 0 unit SUBCUT QIDACHS [facility]; Protocol Last Admin: 12/14/22 13:23 Dose: 4 unit [place] Carbonate ([place] Carbonate 300 Mg Tablet) 450 mg PO BID [facility] Last Admin: 12/14/22 08:39 Dose: 450 mg Lorazepam (Lorazepam 1 Mg Tablet) 1 mg PO BEDTIME [facility] Last Admin: 12/13/22 21:39 Dose: 1 mg Lorazepam (Lorazepam 1 Mg Tablet) 2 mg PO Q6H PRN PRN Reason: agitation/sleep Last Admin: 12/11/22 00:17 Dose: 2 mg Magnesium Hydroxide (Milk Of Magnesia 30 Ml Oral.Susp) 30 ml PO DAILY PRN PRN Reason: Constipation Metformin HCl (Metformin Hcl 500 Mg Tablet) 500 mg PO BIDWM [facility] Last Admin: 12/14/22 08:40 Dose: 500 mg Mupirocin (Mupirocin 2 % Oint 22 Gm Tube) 1 appl TOPICAL TID [facility]; Protocol Last Admin: 12/14/22 10:10 Dose: 1 appl Olanzapine (Olanzapine Odt 10 Mg Tab.Rapdis) 10 mg TRANSLINGU Q6H PRN PRN Reason: agitation Last Admin: 12/10/22 22:31 Dose: 10 mg Trazodone HCl (Trazodone Hcl 50 Mg Tablet) 50 mg PO BEDTIME PRN PRN Reason: Insomnia Last Admin: 12/11/22 00:17 Dose: 50 mg Ziprasidone (Ziprasidone 60 Mg Capsule) 60 mg PO BIDWM [facility] Last Admin: 12/14/22 08:39 Dose: 60 mg Allergies Allergies Allergy/AdvReac Type Severity Reaction Status Date / Time No Known Allergies Allergy Verified 11/26/22 16:38 Assessment & Plan Assessment & Plan (1) Bipolar 1 disorder, manic, moderate: Status: Acute Code(s): F31.12 - Bipolar disorder, current episode manic without psychotic features, moderate Plan Mr Montero is a 52 year-old male with no prior hx of psychiatric symptoms brought in by family as pt presenting as paranoid towards partner, more irritable, not sleeping impulsive/reckless behaviors such as randomly given money to strangers. Utox negative. Pt does note some changes in behavior but minimizes and lacks insight as to concerns in changes in behaviors. We discussed risks, befits and alternative treatment options. At the moment, pt does not want scheduled medications. PLAN 1. Admit to M3, Cv 15 minutes checks 2. obtain collateral information 3. Aftercare planning. 11/30 start lithium 300mg po BID, geodon 20mg po daily 12/01 increased Geodon 20 mg po bid with meals. 12/02 keep same treatment. 12/03 increased lithium to 450 BID from 300 BID. 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 slept only 3 hrs overnight. medical consult for eval of raised, weeping lesions on occipital scalp. 12/04 continue current medications, lithium increased yesterday. Will add prn Olanzapine and ativan for agitation. scheduled ativan 1 mg po qhs for sleep. 12/05 continue current medications. 12/06 continue tx. will add crp, shanti, head CT 12/07: CRP WNL. CT not yet read, autoimmune assays not back yet. continue current mgmt. 12/08:Continue current treatment plan. 12/09: Continue treatment plan. 12/10 continue tx. 12/11 increase geodon to 60mg po BIDWM. continue lithium. 12/12: SHANTI POS 1:80 with nuclear speckled pattern, consistent with various auto-immune disorders. will order F/U labs in attempt to specify Dx. continue current mgmt otherwise. 12/13: attempt to R/O SLE psychosis with further immuno-assays, ordered 12/13. stable clinical presentation at the moment. 12/14: labs drawn. stable, calm, cooperative. continue current mgmt. Reason for contiued inpatient stay Substantial Risk for: inability to function and rapid decompensation Time Spent With Patient Time: Total time managing care of this patient today __25__ minutes.
[2022-12-14 17:40] LABS: Glucose, Whole Blood 238 mg/dL (60-115)
[2022-12-14 21:46] VITALS: BP 124/84; PULSE 75; RESP 18; TEMP 36.6; O2SAT 99
[2022-12-14] MEDS: LORazepam 1 MG TABLET PO (22:03)
[2022-12-14 22:23] LABS: Glucose, Whole Blood 199 mg/dL (60-115)
[2022-12-15 08:40] VITALS: BP 126/73; PULSE 86; RESP 18; TEMP 36.9; O2SAT 98
[2022-12-15] MEDS: Insulin Lispro 100 UNIT/ML 3 ML VIAL SUBCUT ×3 (08:47→22:05)
[2022-12-15] MEDS: metFORMIN HCl 500 MG TABLET PO ×2 (08:48→17:50)
[2022-12-15] MEDS: Ziprasidone 60 MG CAPSULE PO ×2 (08:48→17:50)
[2022-12-15] MEDS: Lithium Carbonate 300 MG TABLET 450 MG PO ×2 (08:48→22:04)
--- NOTE | 2022-12-15 09:53 | HO.PSYCHPN ---
Subjective Subjective Date of Service: 12/15/22 Reason For Visit: jon Subjective Notes: Conditional Voluntary Interim History: Pt much calmer and sleeping through the night. Pt with some ideas of family members going through the process almost a miracle process which he reports wishes his family go through but he states his family is somewhat reluctant. He is less labile. He is taking medications as prescribed. No behavioral concerns. Medication Compliance: Yes Review of Systems Review of Systems He denies chest pain, SOB, no changes in vision, no headache. No hx of seizures or cancer. Mental Status Exam Mental Status Exam Narrative: Appearance: street clothes, thin, in NAD behavior: cooperative Psychomotor: no agitation or retardation noted Speech: clear, normal rate/rhythm/volume, spontaneous TP: linear TC: no delusions or paranoia expressed. Mood: fine Affect: non-labile, constricted SI: none expressed HI: none expressed VH/AH: none reported Insight/judgment: fair x 2. Memory/cog: alert, oriented x 3. Diagnostics Vital Signs (24Hr): Vital Signs - 24 hr 12/14/22 21:46 Temperature 97.9 F Pulse Rate 75 Respiratory Rate 18 Blood Pressure 124/84 Pulse Oximetry 99 Oxygen Delivery Method Room Air BMI result Body Mass Index 23.3 Labs 11/26/22 16:53 12/13/22 10:14 Labs: Laboratory Results - last 48 hr 12/13/22 12/13/22 12/13/22 10:14 12:45 17:48 ESR Creatinine 1.01 Estim Creat Clear Calc 84.5 Estimated GFR > 60 POC Glucose 281 H 208 H Total Creatine Kinase 12/13/22 12/14/22 12/14/22 21:29 08:13 09:09 ESR 7 Creatinine Estim Creat Clear Calc Estimated GFR POC Glucose 139 H 189 H Total Creatine Kinase 12/14/22 12/14/22 12/14/22 09:09 13:11 17:36 ESR Creatinine Estim Creat Clear Calc Estimated GFR POC Glucose 247 H 238 H Total Creatine Kinase 201 H 12/14/22 22:01 ESR Creatinine Estim Creat Clear Calc Estimated GFR POC Glucose 199 H Total Creatine Kinase Imaging Radiology Impressions: ITS Impressions Head CT 12/07/22 09:45 IMPRESSION: No acute intracranial process seen. Medications Medications Current Medications Acetaminophen (Acetaminophen 325 Mg Tablet) 650 mg PO Q6H PRN PRN Reason: Headache/Pain Mild Scale (1-3) Last Admin: 12/03/22 05:37 Dose: 650 mg Al Hydroxide/Mg Hydroxide (Magnesium Hydrox/Alum Hydrox 30 Ml Oral.Susp) 30 ml PO Q6H PRN PRN Reason: Heartburn/Nausea Glucose (Glucose Gel 15 Gm Gel..Gram.) 15 gm PO Q15M PRN; Protocol PRN Reason: per Hypoglycemia Standing Ord. Hydroxyzine HCl (Hydroxyzine Hcl 25 Mg Tablet) 25 mg PO Q6H PRN PRN Reason: Anxiety Last Admin: 12/10/22 22:31 Dose: 25 mg Dextrose (D10) 250 mls @ 750 mls/hr IV Q15M PRN; Protocol PRN Reason: per Hypoglycemia Standing Ord. Insulin Human Lispro (Insulin Lispro 100 Unit/Ml 3 Ml Vial) 0 unit SUBCUT QIDACHS [facility]; Protocol Last Admin: 12/15/22 08:47 Dose: 6 unit [place] Carbonate ([place] Carbonate 300 Mg Tablet) 450 mg PO BID [facility] Last Admin: 12/15/22 08:48 Dose: 450 mg Lorazepam (Lorazepam 1 Mg Tablet) 2 mg PO Q6H PRN PRN Reason: agitation/sleep Last Admin: 12/11/22 00:17 Dose: 2 mg Magnesium Hydroxide (Milk Of Magnesia 30 Ml Oral.Susp) 30 ml PO DAILY PRN PRN Reason: Constipation Metformin HCl (Metformin Hcl 500 Mg Tablet) 500 mg PO BIDWM [facility] Last Admin: 12/15/22 08:48 Dose: 500 mg Mupirocin (Mupirocin 2 % Oint 22 Gm Tube) 1 appl TOPICAL TID [facility]; Protocol Last Admin: 12/14/22 22:03 Dose: 1 appl Olanzapine (Olanzapine Odt 10 Mg Tab.Rapdis) 10 mg TRANSLINGU Q6H PRN PRN Reason: agitation Last Admin: 12/10/22 22:31 Dose: 10 mg Trazodone HCl (Trazodone Hcl 50 Mg Tablet) 50 mg PO BEDTIME PRN PRN Reason: Insomnia Last Admin: 12/11/22 00:17 Dose: 50 mg Ziprasidone (Ziprasidone 60 Mg Capsule) 60 mg PO BIDWM [facility] Last Admin: 12/15/22 08:48 Dose: 60 mg Allergies Allergies Allergy/AdvReac Type Severity Reaction Status Date / Time No Known Allergies Allergy Verified 11/26/22 16:38 Assessment & Plan Assessment & Plan (1) Bipolar 1 disorder, manic, moderate: Status: Acute Code(s): F31.12 - Bipolar disorder, current episode manic without psychotic features, moderate Plan Mr Montero is a 52 year-old male with no prior hx of psychiatric symptoms brought in by family as pt presenting as paranoid towards partner, more irritable, not sleeping impulsive/reckless behaviors such as randomly given money to strangers. Utox negative. Pt does note some changes in behavior but minimizes and lacks insight as to concerns in changes in behaviors. We discussed risks, befits and alternative treatment options. At the moment, pt does not want scheduled medications. PLAN 1. Admit to M3, Cv 15 minutes checks 2. obtain collateral information 3. Aftercare planning. 11/30 start lithium 300mg po BID, geodon 20mg po daily 12/01 increased Geodon 20 mg po bid with meals. 12/02 keep same treatment. 12/03 increased lithium to 450 BID from 300 BID. 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 slept only 3 hrs overnight. medical consult for eval of raised, weeping lesions on occipital scalp. 12/04 continue current medications, lithium increased yesterday. Will add prn Olanzapine and ativan for agitation. scheduled ativan 1 mg po qhs for sleep. 12/05 continue current medications. 12/06 continue tx. will add crp, shanti, head CT 12/07: CRP WNL. CT not yet read, autoimmune assays not back yet. continue current mgmt. 12/08:Continue current treatment plan. 12/09: Continue treatment plan. 12/10 continue tx. 12/11 increase geodon to 60mg po BIDWM. continue lithium. 12/12: SHANTI POS 1:80 with nuclear speckled pattern, consistent with various auto-immune disorders. will order F/U labs in attempt to specify Dx. continue current mgmt otherwise. 12/13: attempt to R/O SLE psychosis with further immuno-assays, ordered 12/13. stable clinical presentation at the moment. 12/14: labs drawn. stable, calm, cooperative. continue current mgmt. 12/15 continue tx. Reason for contiued inpatient stay Substantial Risk for: inability to function Time Spent With Patient Time: Total time managing care of this patient today ____ minutes.
[2022-12-15] MEDS: Mupirocin 2 % Oint 22 GM TUBE 1 APPL TOPICAL ×3 (11:23→22:02)
[2022-12-15 12:39] LABS: Glucose, Whole Blood 135 mg/dL (60-115)
[2022-12-15 12:39] LABS: Glucose, Whole Blood 279 mg/dL (60-115)
[2022-12-15 17:59] LABS: Glucose, Whole Blood 182 mg/dL (60-115)
[2022-12-15 21:18] LABS: Glucose, Whole Blood 185 mg/dL (60-115)
[2022-12-15 21:19] VITALS: BP 148/83; PULSE 71; RESP 18; TEMP 36.6; O2SAT 99
[2022-12-15] MEDS: LORazepam 1 MG TABLET PO (22:04)
[2022-12-15] MEDS: Doxycycline Monohydrate 100 MG CAPSULE PO (22:05)
[2022-12-16 08:38] LABS: Glucose, Whole Blood 205 mg/dL (60-115)
[2022-12-16 09:10] VITALS: BP 116/76; PULSE 74; RESP 16; TEMP 36.7; O2SAT 99
[2022-12-16] MEDS: metFORMIN HCl 500 MG TABLET PO ×2 (09:16→18:17)
[2022-12-16] MEDS: Insulin Lispro 100 UNIT/ML 3 ML VIAL SUBCUT ×3 (09:16→22:02)
[2022-12-16] MEDS: Ziprasidone 60 MG CAPSULE PO ×2 (09:16→18:18)
[2022-12-16] MEDS: Lithium Carbonate 300 MG TABLET 450 MG PO ×2 (09:17→22:01)
[2022-12-16] MEDS: Doxycycline Monohydrate 100 MG CAPSULE PO ×2 (09:17→22:01)
[2022-12-16] MEDS: Mupirocin 2 % Oint 22 GM TUBE 1 APPL TOPICAL ×3 (09:20→22:03)
[2022-12-16 12:44] LABS: Glucose, Whole Blood 144 mg/dL (60-115)
--- NOTE | 2022-12-16 20:10 | P.PNPSI_ITS ---
Subjective Subjective Date of Service: 12/16/22 Reason For Visit: jon Interim History: Pt much calmer and sleeping through the night. Pt with some ideas of family members going through the process almost a miracle process which he reports wishes his family go through but he states his family is somewhat reluctant. He is less labile. He is taking medications as prescribed. No behavioral concerns. Review of Systems Review of Systems He denies chest pain, SOB, no changes in vision, no headache. No hx of seizures or cancer. Mental Status Exam Mental Status Exam Narrative: Appearance: street clothes, thin, in NAD behavior: cooperative Psychomotor: no agitation or retardation noted Speech: clear, normal rate/rhythm/volume, spontaneous TP: linear TC: no delusions or paranoia expressed. Mood: fine Affect: non-labile, constricted SI: none expressed HI: none expressed VH/AH: none reported Insight/judgment: fair x 2. Memory/cog: alert, oriented x 3. Diagnostics Vital Signs (24Hr): Vital Signs - 24 hr 12/15/22 21:19 12/16/22 09:10 Temperature 97.9 F 98.1 F Pulse Rate 71 74 Respiratory Rate 18 16 Blood Pressure 148/83 H 116/76 Pulse Oximetry 99 99 Oxygen Delivery Method Room Air Room Air BMI result Body Mass Index 23.3 Labs 11/26/22 16:53 12/13/22 10:14 Labs: Laboratory Results - last 48 hr 12/14/22 12/15/22 12/15/22 22:01 08:31 12:34 POC Glucose 199 H 279 H 135 H 12/15/22 12/15/22 12/16/22 17:49 21:12 08:32 POC Glucose 182 H 185 H 205 H 12/16/22 12:39 POC Glucose 144 H Imaging Radiology Impressions: ITS Impressions Head CT 12/07/22 09:45 IMPRESSION: No acute intracranial process seen. Medications Medications Current Medications Acetaminophen (Acetaminophen 325 Mg Tablet) 650 mg PO Q6H PRN PRN Reason: Headache/Pain Mild Scale (1-3) Last Admin: 12/03/22 05:37 Dose: 650 mg Al Hydroxide/Mg Hydroxide (Magnesium Hydrox/Alum Hydrox 30 Ml Oral.Susp) 30 ml PO Q6H PRN PRN Reason: Heartburn/Nausea Doxycycline Monohydrate (Doxycycline Monohydrate 100 Mg Capsule) 100 mg PO Q12H [facility] Last Admin: 12/16/22 09:17 Dose: 100 mg Glucose (Glucose Gel 15 Gm Gel..Gram.) 15 gm PO Q15M PRN; Protocol PRN Reason: per Hypoglycemia Standing Ord. Hydroxyzine HCl (Hydroxyzine Hcl 25 Mg Tablet) 25 mg PO Q6H PRN PRN Reason: Anxiety Last Admin: 12/10/22 22:31 Dose: 25 mg Dextrose (D10) 250 mls @ 750 mls/hr IV Q15M PRN; Protocol PRN Reason: per Hypoglycemia Standing Ord. Insulin Human Lispro (Insulin Lispro 100 Unit/Ml 3 Ml Vial) 0 unit SUBCUT QIDACHS [facility]; Protocol Last Admin: 12/16/22 18:16 Dose: 2 unit [place] Carbonate ([place] Carbonate 300 Mg Tablet) 450 mg PO BID [facility] Last Admin: 12/16/22 09:17 Dose: 450 mg Lorazepam (Lorazepam 1 Mg Tablet) 1 mg PO BEDTIME [facility] Last Admin: 12/15/22 22:04 Dose: 1 mg Lorazepam (Lorazepam 1 Mg Tablet) 2 mg PO Q6H PRN PRN Reason: anxiety Magnesium Hydroxide (Milk Of Magnesia 30 Ml Oral.Susp) 30 ml PO DAILY PRN PRN Reason: Constipation Metformin HCl (Metformin Hcl 500 Mg Tablet) 500 mg PO BIDWM [facility] Last Admin: 12/16/22 18:17 Dose: 500 mg Mupirocin (Mupirocin 2 % Oint 22 Gm Tube) 1 appl TOPICAL TID [facility]; Protocol Last Admin: 12/16/22 16:02 Dose: 1 appl Olanzapine (Olanzapine Odt 10 Mg Tab.Rapdis) 10 mg TRANSLINGU Q6H PRN PRN Reason: agitation Last Admin: 12/10/22 22:31 Dose: 10 mg Trazodone HCl (Trazodone Hcl 50 Mg Tablet) 50 mg PO BEDTIME PRN PRN Reason: Insomnia Last Admin: 12/11/22 00:17 Dose: 50 mg Ziprasidone (Ziprasidone 60 Mg Capsule) 60 mg PO BIDWM [facility] Last Admin: 12/16/22 18:18 Dose: 60 mg Allergies Allergies Allergy/AdvReac Type Severity Reaction Status Date / Time No Known Allergies Allergy Verified 11/26/22 16:38 Assessment & Plan Assessment & Plan (1) Bipolar 1 disorder, manic, moderate: Status: Acute Code(s): F31.12 - Bipolar disorder, current episode manic without psychotic features, moderate Plan Mr Montero is a 52 year-old male with no prior hx of psychiatric symptoms brought in by family as pt presenting as paranoid towards partner, more irritable, not sleeping impulsive/reckless behaviors such as randomly given money to strangers. Utox negative. Pt does note some changes in behavior but minimizes and lacks insight as to concerns in changes in behaviors. We discussed risks, befits and alternative treatment options. At the moment, pt does not want scheduled medications. PLAN 1. Admit to M3, Cv 15 minutes checks 2. obtain collateral information 3. Aftercare planning. 11/30 start lithium 300mg po BID, geodon 20mg po daily 12/01 increased Geodon 20 mg po bid with meals. 12/02 keep same treatment. 12/03 increased lithium to 450 BID from 300 BID. 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 slept only 3 hrs overnight. medical consult for eval of raised, weeping lesions on occipital scalp. 12/04 continue current medications, lithium increased yesterday. Will add prn Olanzapine and ativan for agitation. scheduled ativan 1 mg po qhs for sleep. 12/05 continue current medications. 12/06 continue tx. will add crp, shanti, head CT 12/07: CRP WNL. CT not yet read, autoimmune assays not back yet. continue current mgmt. 12/08:Continue current treatment plan. 12/09: Continue treatment plan. 12/10 continue tx. 12/11 increase geodon to 60mg po BIDWM. continue lithium. 12/12: SHANTI POS 1:80 with nuclear speckled pattern, consistent with various auto- immune disorders. will order F/U labs in attempt to specify Dx. continue current mgmt otherwise. 12/13: attempt to R/O SLE psychosis with further immuno-assays, ordered 12/13. stable clinical presentation at the moment. 12/14: labs drawn. stable, calm, cooperative. continue current mgmt. 12/15 continue tx. 12/16 continue tx. Reason for contiued inpatient stay Substantial Risk for: stable for discharge Time Spent With Patient Time: Total time managing care of this patient today ____ minutes.
[2022-12-16 20:38] LABS: Glucose, Whole Blood 189 mg/dL (60-115)
[2022-12-16 21:24] VITALS: BP 122/71; PULSE 74; RESP 16; TEMP 36.4; O2SAT 99
[2022-12-16 21:40] LABS: Glucose, Whole Blood 227 mg/dL (60-115)
[2022-12-16] MEDS: LORazepam 1 MG TABLET PO (22:01)
[2022-12-17 08:00] VITALS: BP 120/68; PULSE 72; TEMP 36.4; O2SAT 99
[2022-12-17 08:04] LABS: Glucose, Whole Blood 212 mg/dL (60-115)
[2022-12-17] MEDS: Ziprasidone 60 MG CAPSULE PO ×2 (08:27→16:53)
[2022-12-17] MEDS: Lithium Carbonate 300 MG TABLET 450 MG PO ×2 (08:27→21:57)
[2022-12-17] MEDS: Doxycycline Monohydrate 100 MG CAPSULE PO ×2 (08:28→21:58)
[2022-12-17] MEDS: metFORMIN HCl 500 MG TABLET PO ×2 (08:28→16:53)
[2022-12-17] MEDS: Insulin Lispro 100 UNIT/ML 3 ML VIAL SUBCUT ×3 (09:27→21:58)
[2022-12-17 10:58] LABS: Complement C3 140 mg/dL (82-185)
[2022-12-17] MEDS: Mupirocin 2 % Oint 22 GM TUBE 1 APPL TOPICAL ×3 (10:59→21:57)
[2022-12-17 12:34] LABS: Glucose, Whole Blood 159 mg/dL (60-115)
--- NOTE | 2022-12-17 13:37 | HO.PSYCHPN ---
Subjective Subjective Date of Service: 12/17/22 Reason For Visit: jon Subjective Notes: Conditional Voluntary Interim History: Pt continues to present as much calmer and sleeping through the night. Pt with some ideas of family members going through the process almost a miracle process which he reports wishes his family go through but he states his family is somewhat reluctant. He is less labile. He is taking medications as prescribed. No behavioral concerns. Review of Systems Review of Systems He denies chest pain, SOB, no changes in vision, no headache. No hx of seizures or cancer. Mental Status Exam Mental Status Exam Narrative: Appearance: street clothes, thin, in NAD behavior: cooperative Psychomotor: no agitation or retardation noted Speech: clear, normal rate/rhythm/volume, spontaneous TP: linear TC: no delusions or paranoia expressed. Mood: fine Affect: non-labile, constricted SI: none expressed HI: none expressed VH/AH: none reported Insight/judgment: fair x 2. Memory/cog: alert, oriented x 3. Diagnostics Vital Signs (24Hr): Vital Signs - 24 hr 12/16/22 21:24 12/17/22 08:00 Temperature 97.6 F 97.6 F Pulse Rate 74 72 Respiratory Rate 16 Blood Pressure 122/71 120/68 Pulse Oximetry 99 99 Oxygen Delivery Method Room Air Room Air BMI result Body Mass Index 23.3 Labs 11/26/22 16:53 12/13/22 10:14 Labs: Laboratory Results - last 48 hr 12/14/22 12/15/22 12/15/22 09:09 17:49 21:12 POC Glucose 182 H 185 H Complement C3 140 Complement C4 33 12/16/22 12/16/22 12/16/22 08:32 12:39 17:37 POC Glucose 205 H 144 H 189 H Complement C3 Complement C4 12/16/22 12/17/22 12/17/22 21:34 08:01 12:30 POC Glucose 227 H 212 H 159 H Complement C3 Complement C4 Imaging Radiology Impressions: ITS Impressions Head CT 12/07/22 09:45 IMPRESSION: No acute intracranial process seen. Medications Medications Current Medications Acetaminophen (Acetaminophen 325 Mg Tablet) 650 mg PO Q6H PRN PRN Reason: Headache/Pain Mild Scale (1-3) Last Admin: 12/03/22 05:37 Dose: 650 mg Al Hydroxide/Mg Hydroxide (Magnesium Hydrox/Alum Hydrox 30 Ml Oral.Susp) 30 ml PO Q6H PRN PRN Reason: Heartburn/Nausea Doxycycline Monohydrate (Doxycycline Monohydrate 100 Mg Capsule) 100 mg PO Q12H [facility] Last Admin: 12/17/22 09:15 Dose: Not Given Glucose (Glucose Gel 15 Gm Gel..Gram.) 15 gm PO Q15M PRN; Protocol PRN Reason: per Hypoglycemia Standing Ord. Hydroxyzine HCl (Hydroxyzine Hcl 25 Mg Tablet) 25 mg PO Q6H PRN PRN Reason: Anxiety Last Admin: 12/10/22 22:31 Dose: 25 mg Dextrose (D10) 250 mls @ 750 mls/hr IV Q15M PRN; Protocol PRN Reason: per Hypoglycemia Standing Ord. Insulin Human Lispro (Insulin Lispro 100 Unit/Ml 3 Ml Vial) 0 unit SUBCUT QIDACHS [facility]; Protocol Last Admin: 12/17/22 12:38 Dose: 2 unit [place] Carbonate ([place] Carbonate 300 Mg Tablet) 450 mg PO BID [facility] Last Admin: 12/17/22 08:27 Dose: 450 mg Lorazepam (Lorazepam 1 Mg Tablet) 1 mg PO BEDTIME [facility] Last Admin: 12/16/22 22:01 Dose: 1 mg Lorazepam (Lorazepam 1 Mg Tablet) 2 mg PO Q6H PRN PRN Reason: anxiety Magnesium Hydroxide (Milk Of Magnesia 30 Ml Oral.Susp) 30 ml PO DAILY PRN PRN Reason: Constipation Metformin HCl (Metformin Hcl 500 Mg Tablet) 500 mg PO BIDWM [facility] Last Admin: 12/17/22 08:28 Dose: 500 mg Mupirocin (Mupirocin 2 % Oint 22 Gm Tube) 1 appl TOPICAL TID [facility]; Protocol Last Admin: 12/17/22 10:59 Dose: 1 appl Olanzapine (Olanzapine Odt 10 Mg Tab.Rapdis) 10 mg TRANSLINGU Q6H PRN PRN Reason: agitation Last Admin: 12/10/22 22:31 Dose: 10 mg Trazodone HCl (Trazodone Hcl 50 Mg Tablet) 50 mg PO BEDTIME PRN PRN Reason: Insomnia Last Admin: 12/11/22 00:17 Dose: 50 mg Ziprasidone (Ziprasidone 60 Mg Capsule) 60 mg PO BIDWM [facility] Last Admin: 12/17/22 08:27 Dose: 60 mg Allergies Allergies Allergy/AdvReac Type Severity Reaction Status Date / Time No Known Allergies Allergy Verified 11/26/22 16:38 Assessment & Plan Assessment & Plan (1) Bipolar 1 disorder, manic, moderate: Status: Acute Code(s): F31.12 - Bipolar disorder, current episode manic without psychotic features, moderate Plan Mr Montero is a 52 year-old male with no prior hx of psychiatric symptoms brought in by family as pt presenting as paranoid towards partner, more irritable, not sleeping impulsive/reckless behaviors such as randomly given money to strangers. Utox negative. Pt does note some changes in behavior but minimizes and lacks insight as to concerns in changes in behaviors. We discussed risks, befits and alternative treatment options. At the moment, pt does not want scheduled medications. PLAN 1. Admit to M3, Cv 15 minutes checks 2. obtain collateral information 3. Aftercare planning. 11/30 start lithium 300mg po BID, geodon 20mg po daily 12/01 increased Geodon 20 mg po bid with meals. 12/02 keep same treatment. 12/03 increased lithium to 450 BID from 300 BID. 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 slept only 3 hrs overnight. medical consult for eval of raised, weeping lesions on occipital scalp. 12/04 continue current medications, lithium increased yesterday. Will add prn Olanzapine and ativan for agitation. scheduled ativan 1 mg po qhs for sleep. 12/05 continue current medications. 12/06 continue tx. will add crp, shanti, head CT 12/07: CRP WNL. CT not yet read, autoimmune assays not back yet. continue current mgmt. 12/08:Continue current treatment plan. 12/09: Continue treatment plan. 12/10 continue tx. 12/11 increase geodon to 60mg po BIDWM. continue lithium. 12/12: SHANTI POS 1:80 with nuclear speckled pattern, consistent with various auto-immune disorders. will order F/U labs in attempt to specify Dx. continue current mgmt otherwise. 12/13: attempt to R/O SLE psychosis with further immuno-assays, ordered 12/13. stable clinical presentation at the moment. 12/14: labs drawn. stable, calm, cooperative. continue current mgmt. 12/15 continue tx. 12/16 continue tx. 12/17 continue tx. Reason for contiued inpatient stay Substantial Risk for: stable for discharge Time Spent With Patient Time: Total time managing care of this patient today ____ minutes.
[2022-12-17 16:48] LABS: Glucose, Whole Blood 113 mg/dL (60-115)
[2022-12-17 20:15] VITALS: BP 128/73; PULSE 80; RESP 14; TEMP 36.8; O2SAT 100
[2022-12-17 21:51] LABS: Glucose, Whole Blood 268 mg/dL (60-115)
[2022-12-17] MEDS: LORazepam 1 MG TABLET PO (21:58)
[2022-12-18 06:00] VITALS: BP 130/82; PULSE 70; RESP 18; TEMP 36.8; O2SAT 100
[2022-12-18 08:47] LABS: Glucose, Whole Blood 114 mg/dL (60-115)
[2022-12-18] MEDS: Ziprasidone 60 MG CAPSULE PO (09:15)
[2022-12-18] MEDS: Doxycycline Monohydrate 100 MG CAPSULE PO (09:16)
[2022-12-18] MEDS: metFORMIN HCl 500 MG TABLET PO (09:16)
[2022-12-18] MEDS: Lithium Carbonate 300 MG TABLET 450 MG PO (09:16)
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
[2022-12-18 17:43] LABS: Complement Total CH50 58 U/mL (31-60)
[2022-12-19 08:59] LABS: ANAchoice Screen POSITIVE (NEGATIVE); ds-DNA 1 IU/mL
[2022-12-19 19:30] LABS: Cardiolipin IgG Ab <2.0 GPL-U/mL; Cardiolipin IgM Ab <2.0 MPL-U/mL
[2022-12-21 05:13] LABS: PTT (LAC) Screen 31 sec (<=40)
[2022-12-24 05:34] LABS: Beta-2 Glycoprotein IgA <2.0 U/mL (<20.0); Beta-2 Glycoprotein IgG <2.0 U/mL (<20.0); Beta-2 Glycoprotein IgM <2.0 U/mL (<20.0)
== END 2022-12-18 10:37 | disposition home or self-care (01) | DRG 753 ==
LOC: HO.ED 11-28 14:40 → HO.PADLT16 11-28 15:58
PROVIDERS: Physician Assistant Medical; Admitting Provider Psychiatry & Neurology Psychiatry; Emergency Provider Emergency Medicine; Visit Provider Social Worker
DX: F31.12 Bipolar disorder, current episode manic without psychotic features, moderate (principal); E11.65 Type 2 diabetes mellitus with hyperglycemia; L73.2 Hidradenitis suppurativa; Z20.822 Contact with and (suspected) exposure to COVID-19; Z79.84 Long term (current) use of oral hypoglycemic drugs; Z79.899 Other long term (current) drug therapy
CPT/HCPCS: 0241U; 36415; 70450; 80053; 80061; 80076; 80178; 80307; 81001; 82077; 82550; 82565; 82607; 82746; 82947; 83036; 83690; 83735; 84439; 84443; 85025; 85597; 85610; 85613; 85652; 85730; 86038; 86039; 86140; 86146; 86147; 86160; 86162; 86225; 93005; 99285; S9485

== ENCOUNTER 2023-04-19 14:57 | Outpatient (AMB) | payer OTHER, SELFPAY ==
--- NOTE | 2023-04-19 15:09 | AM.OFFWIN_ITS ---
Intake Vital Signs 04/19/23 15:10 BP 110/70 Blood Pressure Location Rt brachial Position Sitting Pulse 75 Pulse Source Pulse Oximeter Temp 96.9 F Temp Source Temporal Artery Scan Pulse Oximetry (%) 96 Oxygen Delivery Method Room Air Intake Visit Reasons: EP, Med review Intake Note: Pt is here requesting refill on Metformin 1,000 mg. Pt states he does not have a pcp as of right now and he needs his medication. Patient Tobacco Use Status: Refuse Tobacco use screen Allergies No Known Allergies Allergy (Verified 04/21/23 09:50) Medication List - Last Reconciled 04/21/23 by Micah Kearney MD blood-glucose meter As directed lithium carbonate ER 450 mg PO BID metformin 1,000 mg PO BID mupirocin 2% 1 appl See Protocol topical TID ziprasidone HCl 60 mg PO BIDWM Do you need a note to return to daycare/school/sports/work: No HPI EP, Med review HPI Details 52-year-old male presents to the office for a sick visit. Patient is requesting a refill on metformin. He has not been able to establish care with a primary care provider. His scheduled appointment is in a month [facility] Social History Household Members: Family Housing: Apartment Do you presently have visiting nurse or other home services: No Unable to assess alcohol history related to: Unknown Alcohol intake: current Alcohol intake frequency: holidays/special occasions only Patient Tobacco Use Status: Refuse Tobacco use screen service: No Sexual orientation: Straight/Heterosexual Physical Exam Vital Signs: Last Vital Signs Temp 96.9 F 04/19/23 15:10 Pulse 75 04/19/23 15:10 BP 110/70 04/19/23 15:10 Pulse Ox 96 04/19/23 15:10 Oxygen Delivery Method Room Air 04/19/23 15:10 Const General: cooperative and healthy appearing Nutritional Appearance: well nourished Orientation/consciousness: patient oriented x3 Limitations: no limitations HEENT Head: Yes normal to inspection Eyes General: appearance normal, both eyes and all related structures Neck Neck: Yes normal visual inspection Chest Chest palpation & inspection: normal palpation of entire chest wall Resp Effort & Inspection: normal respiratory effort Neuro General: patient oriented x3 Assessment & Plan Assessment & Plan (1) Diabetes mellitus: Code(s): E11.9 - Type 2 diabetes mellitus without complications Plan: Metformin prescription called in. Blood work has been ordered. If symptoms do not improve to follow-up here. Orders: Orders Basic Metabolic Panel 04/19/23 E11.9 - Type 2 diabetes mellitus without complications Complete Blood Count no Diff 04/19/23 E11.9 - Type 2 diabetes mellitus without complications Liver Panel 04/19/23 E11.9 - Type 2 diabetes mellitus without complications Lipid Panel 04/19/23 E11.9 - Type 2 diabetes mellitus without complications Thyroid Stimulating Hormone 04/19/23 E11.9 - Type 2 diabetes mellitus without complications Hemoglobin A1c 04/19/23 E11.9 - Type 2 diabetes mellitus without complications Microalbumin, Random (w Creat) 04/19/23 E11.9 - Type 2 diabetes mellitus without complications UA and rflx microscopic 04/19/23 E11.9 - Type 2 diabetes mellitus without complications Medications: Refilled metformin 1,000 mg PO BID 90 tabs 0RF Coding Level of Care Code Est Pt Level 3 (04643) Diagnoses Diabetes mellitus E11.9
[2023-04-19 15:10] VITALS: BP 110/70; PULSE 75; TEMP 36.1; O2SAT 96
== END 2023-04-19 17:00 | disposition home or self-care (01) ==
PROVIDERS: PCP Internal Medicine; Visit Provider Internal Medicine
DX: E11.9 Type 2 diabetes mellitus without complications (principal)
CPT/HCPCS: 99213

== ENCOUNTER 2023-05-04 09:36 | Outpatient (REF) | payer OTHER, SELFPAY ==
[2023-05-04 10:29] LABS: Hematocrit 44.4 % (42.0-52.0); Hemoglobin 15.3 g/dl (14.0-18.0); Mean Corpuscular HGB Conc 34.5 g/dl (31.0-36.0); Mean Corpuscular Hemoglobin 27.9 pg (27.0-33.0); Mean Platelet Volume 10.9 fL (9.4-12.4); Platelet Count 234 X10*3/uL (160-400); Red Blood Count 5.48 X10*6/uL (4.60-5.80); Red Cell Distribution Width 13.3 % (11.0-16.0); White Blood Count 8.9 X10*3/uL (4.8-10.8)
[2023-05-04 10:40] LABS: Estimated Average Glucose 151 mg/dL; Hemoglobin A1c % 6.9 %
[2023-05-04 11:08] LABS: Appearance Urine Clear; Color Urine Yellow; Glucose Urine UA Negative (Negative); Leukocyte Esterase Urine Negative (Negative); Nitrite Urine Negative (Negative); PH 5.5 (5.0-9.0); Specific Gravity - Urine 1.015 (1.005-1.025); UMIC TRIGGER UA YES; Urine Blood Negative (Negative); Urine Ketones Negative (Negative); Urine Protein 30 (1+) mg/dL (Neg-Trace)
[2023-05-04 11:11] LABS: Bacteria Urine None Seen (None Seen); Hyaline Casts Urine 0-2 /LPF (0-2); RBC Urine 0-2 /HPF (0-2); Squamous Epithelial Cell Urine 0-2 /HPF (0-2); WBC Urine 0-5 /HPF (0-5)
[2023-05-04 11:20] LABS: Alanine Aminotransferase 21 U/L (0-40); Albumin Level 4.3 g/dL (3.5-5.0); Alkaline Phosphatase 109 U/L (39-117); Anion Gap 11 (12-20); Aspartate Amino Transferase 14 U/L (5-37); Bilirubin Direct 0.2 mg/dL (0.0-0.5); Bilirubin Total 0.5 mg/dL (0.0-1.0); Blood Urea Nitrogen 12 mg/dL (9-16); Calcium 9.8 mg/dL (8.4-10.2); Carbon Dioxide 30 mmol/L (22-29); Chloride 103 mmol/L (96-108); Cholesterol 162 mg/dL; Estimated Glomerular Filt Rate > 60; Glucose Random 164 mg/dL (60-115); HDL Cholesterol 40 mg/dL; LDL Cholesterol Calculated 103 mg/dl; Potassium 4.1 mmol/L (3.3-5.1); Sodium 140 mmol/L (135-145); Total Protein 8.5 g/dL (6.5-8.0); Triglycerides 99 mg/dL
[2023-05-04 11:37] LABS: Thyroid Stimulating Hormone 0.74 uIU/mL (0.32-4.0)
[2023-05-04 11:46] LABS: Creatinine Urine 88.15 mg/dL; Microalbum/Creatinine Ratio Ur 181.5 ug/mg cr
== END 2023-05-04 09:37 | disposition home or self-care (01) ==
LOC: HO.LAB 09:36
PROVIDERS: Visit Provider Internal Medicine
DX: E11.9 Type 2 diabetes mellitus without complications (principal)
CPT/HCPCS: 36415; 80048; 80061; 80076; 81001; 82043; 83036; 84443; 85027

== ENCOUNTER 2023-05-09 11:24 | Outpatient (AMB) | payer OTHER, SELFPAY ==
--- NOTE | 2023-05-09 11:27 | A.OFFPC_ITS ---
Vital Signs 05/09/23 11:30 Height 5 ft 9 in Weight 161 lb BMI 23.8 BP 110/72 Blood Pressure Location Rt brachial Position Sitting Pulse 72 Pulse Source Pulse Oximeter Pulse Oximetry (%) 99 Intake Visit Reasons: EST Care/DM Per Dr. 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 Strategy Specialist Required: Yes Strategy Specialist Language: Korean Information Interpreted: non-clinical & clinical Allergies No Known Allergies Allergy (Verified 05/09/23 11:57) Medication List - Last Reconciled 05/09/23 by Naty Melton MD blood-glucose meter As directed metformin 1,000 mg PO BID Tobacco use date assessed: 05/09/23 Dental Screening Dental Screen Date: 05/09/23 Did you have a dental visit in the last 12 months?: Yes Did you have a dental problem in the last 6 months where you did not have access to dental care?: No Was dental information given to patient?: Patient has dentist HPI EST Care/DM Per Dr. Villafuerte from 04/26/23 HPI Details 53-year-old male, new to practice, here to establish care with a new PCP. He has been seen at the ER and at the walk-in clinic and diagnosed to have diabetes mellitus, started on metformin 1000 mg taken 1 tablet twice a day , compliant with taking the medication. Complaining however of intermittent episodes of diarrhea since he started taking metformin December 2022. Does not occur every day. Latest fasting labs showed A1c at 6.9%, with an LDL cholesterol at 104 mg/dL and presence of microalbuminuria on recent urine check. He bought a glucometer, but complains that he gets different readings every time he checks it peer [facility] Medical History (Updated 05/09/23 @ 12:46 by Naty Melton MD) COVID-19 vaccine dose declined Diabetes mellitus with microalbuminuria, without long-term current use of insulin Lesion of skin of scalp Need for pneumococcal 20-valent conjugate vaccination Surgical History (Updated 05/09/23 @ 11:32 by Pedro Pablo Giraldo CMA) No pertinent past surgical history Family History (Updated 05/09/23 @ 11:33 by Pedro Pablo Giraldo CMA) Mother Diabetes Social History (Updated 05/09/23 @ 11:33 by Pedro Pablo Giraldo CMA) Household Members: Family Housing: Apartment Do you presently have visiting nurse or other home services: No Alcohol intake: never Patient Tobacco Use Status: Never used Tobacco e-Cigarette/Vaping Use: Never Used service: No 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 1. Little interest or pleasure in doing things: not at all 2. Feeling down, depressed, or hopeless: not at all 3. Trouble falling or staying asleep, or sleeping too much: not at all 4. Feeling tired or having little energy: not at all 5. Poor appetite or overeating: not at all 6. Feeling bad about yourself - or that you are a failure or have let yourself or your family down: not at all 7. Trouble concentrating on things, such as reading the newspaper or watching television: not at all 8. Moving or speaking so slowly that other people could have noticed. Or the opposite - being so fidgety or restless that you have been moving around a lot more than usual: not at all 9. Thoughts that you would be better off or of hurting yourself in some way: not at all Total score: 0 Depression Screening Interpretation: Negative 28442 - PHQ-9 Billing: Yes Source: Developed by Drs. Dariel Brian, Leanne Amos, Tomer Romeo and colleagues, with an educational efraín from [employer]. Thrive Questionnaire Date Thrive assessed: 05/09/23 I am a: Patient What is your living situation today?: I have a steady place to live Within the past 12 months, did the food you bought not last and you didn't have the money to get more?: Never true Within the past 12 months, did you worry whether your food would run out before you got money to buy more?: Never true Do you have trouble paying for medicines?: No Do you have trouble getting transportation to medical appointments?: No Do you have trouble paying your heating and electricity bill?: No Do you have trouble taking care of your child, family member or friend?: No Do you have trouble with day-to-day activities such as bathing, preparing meals, shopping, managing finances, etc.?: No Are you currently unemployed and looking for a job?: No Are you interested in more education?: No Please select the resources that you would like help with: None Currently or been in a relationship where the following occur: no concerns reported WILIAN-7 AMB Questionnaire WILIAN-7 Date WILIAN - 7 assessed: 05/09/23 Feeling nervous, anxious, or on edge: 0 = Not at all Not being able to stop or control worryin = Not at all Worrying too much about different things: 0 = Not at all Trouble relaxin = Not at all Being so restless that it is hard to sit still: 0 = Not at all Becoming easily annoyed or irritable: 0 = Not at all Feeling afraid as if something awful might happen: 0 = Not at all Total WILIAN-7 score (0-4 normal; 5-9 mild; 10-14 moderate; 15-21 severe): 0 Source: Developed by Drs. Dariel Brian, Leanne Amos, Tomer Romeo and colleagues, with an educational efraín from [employer]. WILIAN-7 Assessment Billing WILIAN-7 Assessment Tool: WILIAN-7 Assessment 20162 Review of Systems Const Denies body aches, Denies fatigue, Denies fever(s), Denies headache(s) and Denies weakness Eyes Details: Needs an eye exam completed, goes to [facility] Reports blurry vision ENT Denies dizziness, Denies headache(s), Denies nasal congestion and Denies nasal discharge Card Denies chest pain, Denies lightheadedness, Denies palpitations and Denies dyspnea Resp Denies chest congestion, Denies cough, Denies dyspnea and Denies wheezing GI Denies abdominal pain and Denies heartburn Denies hematuria, Denies difficulty urinating, Denies dysuria, Denies urinary frequency and Denies urinary urgency Musc Reports no additional complaints Skin/Breast Details: Complaining of lesions on scalp, which occasionally oozes pus and blood Denies rash Neuro Denies dizziness, Denies headache(s) and Denies weakness Psych Reports no additional complaints Endo Denies fatigue, Denies polydipsia, Denies polyuria and Denies palpitations Natalio/Lymph Denies easy bruising Aller/Immun Denies seasonal rhinorrhea and Denies wheezing Physical exam (Primary Care) Vital Signs: Last Vital Signs Pulse 72 05/09/23 11:30 BP 110/72 05/09/23 11:30 Pulse Ox 99 05/09/23 11:30 BMI result Body Mass Index 23.8 Tobacco/Smoking Status: Tobacco use Status Tobacco use date assessed 05/09/23 05/09/23 11:37 Patient Tobacco Use Status Never used Tobacco 05/09/23 11:37 e-Cigarette/Vaping Use Never Used 05/09/23 11:37 PHQ-9: PHQ-9 Score PHQ-9: Total score 0 05/09/23 11:54 Depression Screening Interpretation: Negative Thrive Assessment: Date of Thrive Assessment Date Thrive assessed 05/09/23 05/09/23 11:37 Currently or been in a relationship where the following occur: no concerns reported Const General: comfortable and no acute distress Nutritional Appearance: average body habitus Orientation/consciousness: patient oriented x3 HENMT Head: Yes normocephalic General nose exam: Normal external nose present Face and sinus: Yes face symmetric Mouth: Normal oral and palatal mucosa present, oropharynx normal and moist mucous membranes Eyes General: appearance normal, both eyes and all related structures Neck Other: Nonpalpable thyroid gland Neck: Yes full ROM, Yes no lymphadenopathy and Yes supple Chest Chest palpation & inspection: normal inspection of the chest and normal palpation of entire chest wall Resp Auscultation: clear to auscultation bilaterally Cardio Rate: regular rate Rhythm: regular rhythm Heart sounds: S1 normal heart sound present and S2 normal heart sound present GI Inspection: Yes normal to inspection Palpation (GI): Soft to palpation, nontender, no guarding and no masses Auscultation: normal bowel sounds General: Yes no CVA tenderness Back/Spine/Pelvis Back: no CVA tenderness and No back tenderness Skin Other: dry Nodular lesions on scalp Neuro General: patient oriented x3, gait normal, tone normal, moves all extremities, Normal light touch and pain sensation, no focal motor deficits, CN's II-XI intact bilaterally and normal sensation to monofilament Extrem General: Yes full ROM, Yes no joint enlargement, Yes no clubbing, cyanosis or edema and Yes normal gait Immunizations pneumoc 20-valarie conj-dip cr(PF) Performing Provider: Naty Melton MD Administered by: Francisca Tyson CMA on 05/09/23 12:25 Dose Route Admin Location Lot Number Expiration Date NDC Ingot Weigher 0.5 mL IM Right Deltoid [id number] 07/16/24 [employer]YETH/PFIZER VIS Given Date VIS Provided VIS Publication Date 05/09/23 Single Vaccine 21 Eligibility Eligibility Date Funding Source Not VFC Eligible 05/09/23 Private Results Reviewed Results Reviewed: RUN: 05/09/23 1154 PAGE 1 [facility] [address] [place] [id number] Licensed Funeral Director And Embalmer: Carlos Monroe M.D. Specimen Inquiry Name: Scott Montero Age/Sex: 53/M : 1970 Unit#: [id number] Attend Dr: Micah Kearney MD Re05/04/23 Status: DEP [facility] Disch: SPEC : [id number] JOHNNIE: 05/04/23 STATUS: COMP REQ : [id number] RECD: 05/04/[address]: Micah Kearney MD COMP: 05/04/231137 ENTERED: 05/04/[address] [facility] [address]: ORDERED: Liver Panel, BMP, Lipid Panel, TSH Test Result Flag Reference Site Sodium 140 135-145 mmol/L Potassium 4.1 3.3-5.1 mmol/L CL 103 96-108 mmol/L CO2 30 H 22-29 mmol/L Gap 11 L 12-20 BUN 12 9-16 mg/dL Creat 0.80 0.5-1.4 mg/dL EGFR > 60 NOTE: For -Maldivian individuals, multiply the result by 1.210. Chronic Kidney Disease: Estimated GFR < 60 m L/min/1.73m2 Severe Kidney Disease: Estimated GFR < 15 mL/min/1.73m2 Glucose, Random 164 H 60-115 mg/dL CA 9.8 8.4-10.2 mg/dL Total Bili 0.5 0.0-1.0 mg/dL Direct Bili 0.2 0.0-0.5 mg/dL AST (GOT) 14 5-37 U/L ALT (GPT) 21 0-40 U/L Protein, Total 8.5 H 6.5-8.0 g/dL Alb 4.3 3.5-5.0 g/dL Triglyceride 99 mg/dL Desirable Triglyceride: less than 150 mg/dL Borderline High Triglyceride 150-199 mg/dL High Triglyceride: 200-499 mg/dL Very High Triglyceride: greater than or equal to 5OO mg/dL Chol 162 mg/dL Desirable Cholesterol: less than 200 mg/dL Borderline High Cholesterol: 200-239 mg/dL High Cholesterol: greater than 239 mg/dL LDL Calculated 103 mg/dl Desirable LDL: less than 100 mg/dL Near Optimal/Above Optimal LDL: 110-129 mg/dL Borderline High LDL: 130-159 mg/dL High LDL: 160-189 mg/dL Very High LDL: greater than or equal to 190 mg/dL HDL 40 mg/dL Desirable HDL: greater than 40 mg/dL Note: This HDL assay may give artificially low results in patients with liver disease. Alk Phos 109 39-117 U/L TSH 3rd Gen. 0.74 0.32-4.0 uIU/mL TSH 3rd Generation ([facility]) Laboratory Tests 05/04/23 05/04/23 09:45 09:52 Estimat Average Glucose 151 Hemoglobin A1c % 6.9 Urine Creatinine 88.15 Urine Microalbumin 160.0 Microalb/Creat Ratio 181.5 Assessment and Plan Assessment & Plan (1) Diabetes mellitus with microalbuminuria, without long-term current use of insulin: Code(s): E11.29 - Type 2 diabetes mellitus with other diabetic kidney complication; R80.9 - Proteinuria, unspecified Plan: Continue with metformin a 1000 mg 1 tablet twice a day with meals. Recent lab results reviewed with patient, with sugar and hemoglobin A1c stable and at goal. continue to check fasting blood sugar at home, maintain log and bring to next appointment for review. Reinforced diabetic diet and regular exercise with patient, referred to tobacco educator for DIABETES EDUCATION. Counseled regarding importance of yearly diabetes retinopathy screening , goes to [facility]. Patient advised to inspect feet daily, for any signs of injury, callus or infection. Compliance with diet and regular exercise again stressed. Blood pressure goal is less than 130/80, goal LDL is less than 100 and goal hemoglobin A1c is less than 7% follow-up appointment made in-3--months, after fasting labs done. Will start on lisinopril 5 mg once a day in a.m., and rosuvastatin 5 mg 3 times a week. Prevnar 20 given today, reminded to get his flu shot, and COVID booster but patient declined latter peer (2) COVID-19 vaccine dose declined: Code(s): Z28.21 - Immunization not carried out because of patient refusal Plan: Has had the initial COVID vaccine series but does not want to get the booster (3) Need for pneumococcal 20-valent conjugate vaccination: Code(s): Z23 - Encounter for immunization Plan: Prevnar 20 given today (4) Lesion of skin of scalp: Code(s): L98.9 - Disorder of the skin and subcutaneous tissue, unspecified Orders: Orders Lipid Panel 3 Months E11.29 - Type 2 diabetes mellitus with other diabetic kidney complication, R80.9 - Proteinuria, unspecified Alanine Aminotransferase 3 Months E11.29 - Type 2 diabetes mellitus with other diabetic kidney complication, R80.9 - Proteinuria, unspecified Aspartate Amino Transferase 3 Months E11.29 - Type 2 diabetes mellitus with other diabetic kidney complication, R80.9 - Proteinuria, unspecified Basic Metabolic Panel Fasting 3 Months E11.29 - Type 2 diabetes mellitus with other diabetic kidney complication, R80.9 - Proteinuria, unspecified Hemoglobin A1c 3 Months E11.29 - Type 2 diabetes mellitus with other diabetic kidney complication, R80.9 - Proteinuria, unspecified Pneumococcal 20 Immunization Today Z23 - Encounter for immunization Referrals Dermatology Referral L98.9 - Disorder of the skin and subcutaneous tissue, unspecified Medications: New lisinopril Take in a.m. with breakfast 5 mg PO DAILY 90 tabs 1RF rosuvastatin 5 mg PO Q2D 45 tabs 1RF 90 days Changed From metformin 1,000 mg PO BID 90 tabs 0RF E11.29 - Type 2 diabetes mellitus with other diabetic kidney complication, R80.9 - Proteinuria, unspecified To metformin 1,000 mg PO BID 180 tabs 1RF 3 months E11.29 - Type 2 diabetes mellitus with other diabetic kidney complication, R80.9 - Proteinuria, unspecified Coding Level of Care Code New Pt Level 3 (79832) Diagnoses Diabetes mellitus with microalbuminuria, without long-term current use of insulin E11.29; R80.9 COVID-19 vaccine dose declined Z28.21 Need for pneumococcal 20-valent conjugate vaccination Z23 Lesion of skin of scalp L98.9 Additional Codes WILIAN-7 Assessment Billing - WILIAN-7 Assessment Tool: WILIAN-7 Assessment 99441 ([id number])
[2023-05-09 11:30] VITALS: BP 110/72; PULSE 72; O2SAT 99; BMI 23.8
== END 2023-05-09 12:58 | disposition home or self-care (01) ==
PROVIDERS: Visit Provider Internal Medicine
DX: E11.29 Type 2 diabetes mellitus with other diabetic kidney complication (principal); R80.9 Proteinuria, unspecified; Z28.21 Immunization not carried out because of patient refusal; Z23 Encounter for immunization; L98.9 Disorder of the skin and subcutaneous tissue, unspecified
CPT/HCPCS: 90471; 90677; 99203

== ENCOUNTER 2023-10-15 06:03 | Outpatient (REF) | payer OTHER, SELFPAY ==
[2023-10-15 07:30] LABS: Estimated Average Glucose 160 mg/dL; Hemoglobin A1c % 7.2 % (<6.0)
[2023-10-15 07:50] LABS: Alanine Aminotransferase 27 U/L (0-40); Anion Gap 10 (12-20); Aspartate Amino Transferase 17 U/L (5-37); Blood Urea Nitrogen 12 mg/dL (9-16); Calcium 9.5 mg/dL (8.4-10.2); Carbon Dioxide 30 mmol/L (22-29); Chloride 104 mmol/L (96-108); Cholesterol 172 mg/dL (<200); Estimated Glomerular Filt Rate > 60; Glucose Fasting 162 mg/dL (60-99); HDL Cholesterol 37 mg/dL (>40); LDL Cholesterol Calculated 102 mg/dL (<100); Potassium 4.2 mmol/L (3.3-5.1); Sodium 140 mmol/L (135-145); Triglycerides 165 mg/dL (<150)
== END 2023-10-15 06:04 | disposition home or self-care (01) ==
LOC: HO.LAB 06:03
PROVIDERS: PCP Internal Medicine; Visit Provider Internal Medicine
DX: E11.29 Type 2 diabetes mellitus with other diabetic kidney complication (principal); R80.9 Proteinuria, unspecified
CPT/HCPCS: 36415; 80048; 80061; 83036; 84450; 84460

== ENCOUNTER 2023-10-17 15:34 | Outpatient (AMB) | payer OTHER, SELFPAY ==
--- NOTE | 2023-10-17 15:45 | A.OFFPC_ITS ---
Vital Signs 10/17/23 15:53 Height 5 ft 9 in Weight 173 lb BMI 25.5 BP 100/62 Blood Pressure Location Lt brachial Position Sitting Pulse 60 Pulse Source Pulse Oximeter Pulse Oximetry (%) 97 Oxygen Delivery Method Room Air Intake Visit Reasons: 3 months f/u DM Intake Note: Pt is here today for his 3 months f/u DM Allergies No Known Allergies Allergy (Verified 10/17/23 16:17) Medication List - Last Reconciled 10/17/23 by Naty Melton MD blood sugar diagnostic (FreeStyle Lite Strips) test blood sugar once a day blood-glucose meter (FreeStyle Lite Meter kit) As directed lancets (FreeStyle Lancets) test blood sugar once a day lisinopril 5 mg PO DAILY metformin 1,000 mg PO BID 3 months rosuvastatin 5 mg PO Q2D 90 days Tobacco use date assessed: 10/17/23 Dental Screening Dental Screen Date: 10/17/23 Did you have a dental visit in the last 12 months?: Yes Did you have a dental problem in the last 6 months where you did not have access to dental care?: Yes Was dental information given to patient?: Patient has dentist HPI 3 months f/u DM HPI Details 53-year-old male here today for follow-u p on his diabetes mellitus, hypertension and hypercholesterolemia. Currently taking only metformin once a day, keeps forgetting to take his a.m. dose, and also keeps forgetting to take his rosuvastatin. Has been been trying to follow recommended diet but admits to not getting any regular exercise. Has not had his diabetes retinopathy screening done yet, had 2 COVID vaccines, but does not want to get the booster nor does he want to get a flu shot, Prevnar 20 was given on last visit. Blood pressure today is within normal limits, recent labs showed hemoglobin A1c higher than last check at 7.2% and LDL cholesterol at 103 mg/dL. [facility] Medical History (Updated 10/17/23 @ 16:36 by Naty Melton MD) Mixed dyslipidemia Lesion of skin of scalp Need for pneumococcal 20-valent conjugate vaccination COVID-19 vaccine dose declined Diabetes mellitus with microalbuminuria, without long-term current use of insulin Surgical History No pertinent past surgical history Family History (Updated 10/17/23 @ 15:54 by Omaira Hinds CMA) Mother Diabetes Social History Household Members: Family Housing: Apartment Do you presently have visiting nurse or other home services: No Alcohol intake: never Patient Tobacco Use Status: Never used Tobacco e-Cigarette/Vaping Use: Never Used service: No 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 1. Little interest or pleasure in doing things: not at all 2. Feeling down, depressed, or hopeless: not at all 3. Trouble falling or staying asleep, or sleeping too much: not at all 4. Feeling tired or having little energy: not at all 5. Poor appetite or overeating: not at all 6. Feeling bad about yourself - or that you are a failure or have let yourself or your family down: not at all 7. Trouble concentrating on things, such as reading the newspaper or watching television: not at all 8. Moving or speaking so slowly that other people could have noticed. Or the opposite - being so fidgety or restless that you have been moving around a lot more than usual: not at all 9. Thoughts that you would be better off or of hurting yourself in some way: not at all Total score: 0 Depression Screening Interpretation: Negative Depression Screening Done: Yes 56455 - PHQ-9 Billing: Yes Source: Developed by Drs. Dariel Brian, Leanne Amos, Tomer Romeo and colleagues, with an educational efraín from [employer]. Thrive Questionnaire Date Thrive assessed: 10/17/23 I am a: Patient What is your living situation today?: I have a steady place to live Within the past 12 months, did the food you bought not last and you didn't have the money to get more?: Never true Within the past 12 months, did you worry whether your food would run out before you got money to buy more?: Never true Do you have trouble paying for medicines?: No Do you have trouble getting transportation to medical appointments?: No Do you have trouble paying your heating and electricity bill?: No Do you have trouble taking care of your child, family member or friend?: No Do you have trouble with day-to-day activities such as bathing, preparing meals, shopping, managing finances, etc.?: No Are you currently unemployed and looking for a job?: No Are you interested in more education?: No Currently or been in a relationship where the following occur: no concerns reported THRIVE Score: 0 AUDIT C Alcohol Use Questionnaire (AUDIT-C) 1. How often do you have a drink containing alcohol?: Never Total Score: 0 WILIAN-7 AMB Questionnaire WILIAN-7 Date WILIAN - 7 assessed: 10/17/23 Feeling nervous, anxious, or on edge: 0 = Not at all Not being able to stop or control worryin = Not at all Worrying too much about different things: 0 = Not at all Trouble relaxin = Not at all Being so restless that it is hard to sit still: 0 = Not at all Becoming easily annoyed or irritable: 0 = Not at all Feeling afraid as if something awful might happen: 0 = Not at all Total WILAIN-7 score (0-4 normal; 5-9 mild; 10-14 moderate; 15-21 severe): 0 Source: Developed by Drs. Dariel Brian, Leanne Amos, Tomer Romeo and colleagues, with an educational efraín from [employer]. WILIAN-7 Assessment Billing WILIAN-7 Assessment Tool: WILIAN-7 Assessment 04623 Review of Systems Const Denies body aches, Denies fatigue, Denies fever(s), Denies headache(s) and Denies weakness Eyes Details: Needs an eye exam completed, goes to [facility] Reports blurry vision ENT Denies dizziness, Denies headache(s), Denies nasal congestion and Denies nasal discharge Card Denies chest pain, Denies lightheadedness, Denies palpitations and Denies dyspnea Resp Denies chest congestion, Denies cough, Denies dyspnea and Denies wheezing GI Denies abdominal pain and Denies heartburn Denies hematuria, Denies difficulty urinating, Denies dysuria, Denies urinary frequency and Denies urinary urgency Musc Reports no additional complaints Skin/Breast Denies rash Neuro Denies dizziness, Denies headache(s) and Denies weakness Psych Reports no additional complaints Endo Denies fatigue, Denies polydipsia, Denies polyuria and Denies palpitations Natalio/Lymph Denies easy bruising Aller/Immun Denies seasonal rhinorrhea and Denies wheezing Physical exam (Primary Care) Vital Signs: Last Vital Signs Pulse 60 10/17/23 15:53 BP 100/62 10/17/23 15:53 Pulse Ox 97 10/17/23 15:53 Oxygen Delivery Method Room Air 10/17/23 15:53 BMI result Body Mass Index 25.5 Tobacco/Smoking Status: Tobacco use Status Tobacco use date assessed 10/17/23 10/17/23 15:57 Patient Tobacco Use Status Never used Tobacco 10/17/23 15:46 e-Cigarette/Vaping Use Never Used 10/17/23 15:46 PHQ-9: PHQ-9 Score PHQ-9: Total score 0 10/17/23 16:35 Depression Screening Interpretation: Negative Thrive Assessment: Date of Thrive Assessment Date Thrive assessed 10/17/23 10/17/23 15:57 Currently or been in a relationship where the following occur: no concerns reported Const General: comfortable and no acute distress Nutritional Appearance: average body habitus Orientation/consciousness: patient oriented x3 HENMT Head: Yes normocephalic General nose exam: Normal external nose present Face and sinus: Yes face symmetric Mouth: Normal oral and palatal mucosa present, oropharynx normal and moist mucous membranes Eyes General: appearance normal, both eyes and all related structures Neck Other: Nonpalpable thyroid gland Neck: Yes full ROM, Yes no lymphadenopathy and Yes supple Chest Chest palpation & inspection: normal inspection of the chest and normal palpation of entire chest wall Resp Auscultation: clear to auscultation bilaterally Cardio Rate: regular rate Rhythm: regular rhythm Heart sounds: S1 normal heart sound present and S2 normal heart sound present GI Inspection: Yes normal to inspection Palpation (GI): Soft to palpation, nontender, no guarding and no masses Auscultation: normal bowel sounds General: Yes no CVA tenderness Back/Spine/Pelvis Back: no CVA tenderness and No back tenderness Neuro General: patient oriented x3, gait normal, tone normal, moves all extremities, Normal light touch and pain sensation, no focal motor deficits, CN's II-XI intact bilaterally and normal sensation to monofilament Extrem General: Yes full ROM, Yes no joint enlargement, Yes no clubbing, cyanosis or edema and Yes normal gait Results Reviewed Results Reviewed: RUN: 10/17/23 7148 PAGE 1 [facility] [address] [place] [id number] Mail List Librarian: Carlos Monroe M.D. Specimen Inquiry Name: Scott Montero Age/Sex: 53/M : 1970 Unit#: [id number] Attend Dr: Naty Melton MD Re10/15/23 Status: DEP [facility] Dis[facility]: SPEC : [id number] JOHNNIE: 10/15/23 STATUS: COMP REQ : [id number] RECD: 10/15/[address]: Naty Melton MD COMP: 10/15/23 ENTERED: 10/15/[address] [facility] [address]: ORDERED: Met Prof Fast, AST, ALT, Lipid Panel Test Result Flag Reference Sodium 140 135-145 mmol/L Potassium 4.2 3.3-5.1 mmol/L CL 104 96-108 mmol/L CO2 30 H 22-29 mmol/L Gap 10 L 12-20 BUN 12 9-16 mg/dL Creat 0.89 0.5-1.4 mg/dL EGFR > 60 NOTE: For -[place] individuals, multiply the result by 1.210. Chronic Kidney Disease: Estimated GFR < 60 mL/min/1.73m2 Severe Kidney Disease: Estimated GFR < 15 mL/min/1.73m2 FBS 162 H 60-99 mg/dL A fasting glucose of 126 mg/dl or greater on more than one occasion is considered diagnostic of diabetes. CA 9.5 8.4-10.2 mg/dL AST (GOT) 17 5-37 U/L ALT (GPT) 27 0-40 U/L Triglyceride 165 H <150 mg/dL Desirable Triglyceride: less than 150 mg/dL Borderline High Triglyceride 150-199 mg/dL High Triglyceride: 200-499 mg/dL Very High Triglyceride: greater than or equal to 5OO mg/dL Cholesterol 172 <200 mg/dL Desirable Cholesterol: less than 200 mg/dL Borderline High Cholesterol: 200-239 mg/dL High Cholesterol: greater than 239 mg/dL LDL Calculated 102 H <100 mg/dL Desirable LDL: less than 100 mg/dL Near Optimal/Above Optimal LDL: 110-129 mg/dL Borderline High LDL: 130-159 mg/dL High LDL: 160-189 mg/dL Very High LDL: greater than or equal to 190 mg/dL HDL 37 L >40 mg/dL Desirable HDL: greater than 40 mg/dL Laboratory Tests 05/04/23 10/15/23 09:52 06:20 Estimat Average Glucose 151 160 Hemoglobin A1c % 6.9 7.2 H Assessment and Plan Assessment & Plan (1) Diabetes mellitus with microalbuminuria, without long-term current use of insulin: Code(s): E11.29 - Type 2 diabetes mellitus with other diabetic kidney complication; R80.9 - Proteinuria, unspecified Qualifiers: Diabetes mellitus type: type 2 Qualified Code(s): E11.29 - Type 2 diabetes mellitus with other diabetic kidney complication; R80.9 - Proteinuria, unspecified Plan: Hemoglobin A1c at 7.2% today, advised patient to start taking his metformin 1000 mg per tablet once in the morning at 07:00 and once at night with supper at 19:00. Reinforced adherence to healthy eating habits and getting regular exercise. Patient states that he gets his eye exam from the [facility], will get copy of results , declines recommendation to get flu shot and COVID vaccine booster , but did get his Prevnar 20 last year.. Continue lisinopril 5 mg once a day in a.m. with breakfast (2) Mixed dyslipidemia: Code(s): E78.2 - Mixed hyperlipidemia Plan: Continue taking rosuvastatin 5 mg daily, reinforced importance of following low- cholesterol diet and getting regular exercise recheck fasting lipids again in 3 Orders: Orders Alanine Aminotransferase 01/15/24 E11.29 - Type 2 diabetes mellitus with other diabetic kidney complication, E78.2 - Mixed hyperlipidemia, R80.9 - Proteinuria, unspecified Microalbumin, Random (w Creat) 01/15/24 E11. - Type 2 diabetes mellitus with other diabetic kidney complication, E78.2 - Mixed hyperlipidemia, R80.9 - Proteinuria, unspecified Vitamin D 25-OH Total 01/15/24 E11. - Type 2 diabetes mellitus with other diabetic kidney complication, E78.2 - Mixed hyperlipidemia, R80.9 - Proteinuria, unspecified Aspartate Amino Transferase 01/15/24. - Type 2 diabetes mellitus with other diabetic kidney complication, E78.2 - Mixed hyperlipidemia, R80.9 - Proteinuria, unspecified Basic Metabolic Panel Fasting 01/15/24. - Type 2 diabetes mellitus with other diabetic kidney complication, E78.2 - Mixed hyperlipidemia, R80.9 - Proteinuria, unspecified Hemoglobin A1c 01/15/24. - Type 2 diabetes mellitus with other diabetic kidney complication, E78.2 - Mixed hyperlipidemia, R80.9 - Proteinuria, unspecified Lipid Panel 01/15/24. - Type 2 diabetes mellitus with other diabetic kidney complication, E78.2 - Mixed hyperlipidemia, R80.9 - Proteinuria, unsp ecified PSA,Total (Free>4and<10) 01/15/24. - Type 2 diabetes mellitus with other diabetic kidney complication, E78.2 - Mixed hyperlipidemia, R80.9 - Proteinuria, unspecified Medications: Refilled lisinopril Take in a.m. with breakfast 5 mg PO DAILY 90 tabs 3RF metformin 1,000 mg PO BID 3 months 180 tabs 3RF . - Type 2 diabetes mellitus with other diabetic kidney complication, R80.9 - Proteinuria, unspecified rosuvastatin 5 mg PO Q2D 90 days 45 tabs 3RF Coding Level of Care Code Est Pt Level 4 (95342) Diagnoses Type 2 diabetes mellitus with microalbuminuria, without long-term current use of insulin E11.; R80.9 Diabetes mellitus type: type 2 Mixed dyslipidemia E78.2 Additional Codes WILIAN-7 Assessment Billing - WILIAN-7 Assessment Tool: WILIAN-7 Assessment 23627 ([id number])
[2023-10-17 15:53] VITALS: BP 100/62; PULSE 60; O2SAT 97; BMI 25.5
== END 2023-10-17 16:32 | disposition home or self-care (01) ==
PROVIDERS: PCP Internal Medicine; Visit Provider Internal Medicine
DX: E11.29 Type 2 diabetes mellitus with other diabetic kidney complication (principal); R80.9 Proteinuria, unspecified; E78.2 Mixed hyperlipidemia
CPT/HCPCS: 99214

== ENCOUNTER 2025-07-16 16:07 | Outpatient (REF) | payer SELFPAY ==
--- OUTSIDE RECORDS SUMMARY | 2025-07-16 13:00 | XMS_ITS | Encounter Summary ---
Author Organization [employer] [facility] Address [address] [place] [address] [address], [place] [address] Care Team Providers Care Barrel Inspector Tight Name Role Phone Unavailable Primary Care Provider Unavailabl e Reason for Referral * Consultation (Routine) - Pending Review Specialty Diagnoses / Procedures Referred By Alessandro brody Referred To Contact Gastroenterology Diagnoses Screening for colon cancer Dmitry Singh FNP [address] [place] [address] Phone: tel: fax: Referral ID Status Reason Start Date Expiration Date Visits Requested Visits Authorized [id number] Pending Review Specialty Services Required 07/16/2026 1 1 * Consultation (Routine) - Authorized Specialty Diagnoses / Procedures Referred By Alessandro brody Referred To Contact Dental Copy Manager / Dentistry Diagnoses Healthcare maintenance Dmitry Singh FNP [address] [place] [address] Phone: tel: fax: Referral ID Status Reason Start Date Expiration Date Visits Requested Visits Authorized [id number] Authorized Consult and Treat 07/16/2025 07/16/2026 1 1 * Consultation (Routine) - Pending Review Specialty Diagnoses / Procedures Referred By Alessandro brody Referred To Contact Optometry Diagnoses Healthcare maintenance Dmitry Singh FNP [address] [place] [address] Phone: tel: fax: Referral ID Status Reason Start Date Expiration Date Visits Requested Visits Authorized [id number] Pending Review Specialty Services Required 07/16/2026 1 1 Reason for Visit * Reason Comments new pt Encounter Details Date Type Department Care Team (Late st Contact Info) Description 07/16/2025 1:00 PM EDT Office Visit [facility] MEDICINE [address] [place] [address] Dmitry Singh FNP [address] [place] [address] Type 2 diabetes mellitus without complication, without long-term current use of insulin (HCC) (Primary Dx); Screening for prostate cancer; Healthcare maintenance; Screening for colon cancer; Screening examination for STI Social History Tobacco Use Types Packs/Day Years Used Date Smoking Tobacco: Never Smokeless Tobacco: Never Tobacco Cessation:Counseling Given: Not Answered Alcohol Use Standard Drinks/Week Comments Never 0 (1 standard drink = 0.6 oz pur e alcohol) Depression Answer Date Recorded Patient Health Questionnaire-9 Score 0 07/16/2025 Patient Health Questionnaire-9 Score 0 07/16/2025 Last PHQ-9: Questionnaire Data Not on file 1 Housing Stability Answer Date Recorded What is your housing situation today? I have karon hernandez 07/16/[address] you li ve. Do you have problems with any of the following? None of the above 07/16/2025 Food Insecurity Answer Date Recorded Within the past 12 months, y ou worried that your food would run out before you got money to buy more: Never True 07/16/2025 Within the past 12 months,th e food you bought just didn't last and you didn't have enough money to get more: Never True Transportation Answer Date Recorded In the past 12 months, has l ack of transportation kept you from medical appts, meetings, work or from getting things needed for daily living? No 07/16/2025 Utilities Answer Date Recorded In the past 12 months, has t he electric, gas, oil or water company threatened to shut off services in your home? No 07/16/2025 Depression Answer Date Recorded Patient Health Questionnaire-2 Score 0 07/16/2025 Internet Access Answer Date Recorded Internet Access Q1 Yes 07/16/2025 Internet Access Q2 Not on file 07/16/2025 Sex and Gender Information Value Date Recorded Sex Assigned at Male 04/12/2023 1:14 PM EDT Legal Sex Male 4:26 PM EST Gender Identity Male 04/12/2023 1:14 PM EDT Sexual Orientation Straight 04/12/2023 1: 14 PM EDT documented as of this encounter Last Filed Vital Signs Vital Sign Reading Time Taken Comments Blood Pressure 110/68 07/16/2025 1:03 PM EDT Pulse 60 07/16/2025 1:03 PM EDT Temperature 36.8 C (98.2 F) 07/16/2025 1:03 PM EDT Respiratory Rate 14 07/16/2025 1:03 PM EDT Oxygen Saturation 98% 07/16/2025 1:03 PM EDT Inhaled Oxygen Concentration - - Weight 71.8 kg (158 lb 3.2 oz) 07/16/2025 1:03 P M EDT Height - - Body Mass Index - - documented in this encounter Functional Status * Over the past 2 weeks, how often have you been bothered by any of the following problems? Question Answer Date of Assessment Author Patient Health Questionnaire-2 Score 0 06/18 1:13 PM EDT Adenike Orellana MA * Little interest or pleasure in doing things Answer Date of Assessment Author Not at all 07/16/2025 1:13 PM EDT Adenike Orellana MA * Feeling down, depressed, or hopeless Answer Date of Assessment Author Not at all 07/16/2025 1:13 PM EDT Adenike Orellana MA * Trouble falling or staying asleep, or sleeping too much Answer Date of Assessment Author Not at all 07/16/2025 1:13 PM EDT Adenike Orellana MA * Feeling tired or having little energy Answer Date of Assessment Author Not at all 07/16/2025 1:13 PM EDT Adenike Orellana MA * Poor appetite or overeating Answer Date of Assessment Author Not at all 07/16/2025 1:13 PM EDT Adenike Orellana MA * Feeling bad about yourself - or that you are a failure or have let yourself or your family down Answer Date of Assessment Author Not at all 07/16/2025 1:13 PM EDT Adenike Orellana MA * Trouble concentrating on things, such as reading the newspaper or watching television Answer Date of Assessment Author Not at all 07/16/2025 1:13 PM EDT Adenike Orellana MA * Moving or speaking so slowly that other people could have noticed? Or the opposite - being so fidgety or restless that you have been moving around a lot more than usual. Answer Date of Assessment Author Not at all 07/16/2025 1:13 PM EDT Adenike Orellana MA * Thoughts that you would be better off or hurting yourself in some way Answer Date of Assessment Author Not at all 07/16/2025 1:13 PM EDT Adenike Orellana MA * Patient Health Questionnaire-9 Score Answer Date of Assessment Author 0 07/16/2025 1:13 PM EDT Adenike Orellana MA * Over the last 2 weeks, how often have you been bothered by any of the following problems? Question Answer Date of Assessment Author Feeling nervous, anxious, or on edge 0 06/18 1:05 PM EDT Adenike Orellana MA Not being able to stop or co ntrol worrying 0 07/16/2025 1:05 PM EDT Adenike Orellana M A Worrying too much about diff erent things 0 07/16/2025 1:05 PM EDT Adenike Orellana M A Trouble relaxing 0 07/16/2025 1:05 PM EDT Adenike Hurst MA Being so restless that it is hard to sit still 0 07/16/2025 1:05 PM EDT Adenike Orellana M A Becoming easily annoyed or irritable 0 06/18 1:05 PM EDT Adenike Orellana MA Feeling afraid as if somethi ng awful might happen 0 07/16/2025 1:05 PM EDT Adenike Orellana M A WILIAN-7 Total Score 0 07/16/2025 1:05 PM EDT Adenike Orellana MA documented as of this encounter Plan of Treatment Upcoming Encounters Date Type Department Care Team (Late st Contact Info) Description 08/11/2025 3:00 PM EST Office Visit [facility] MEDICINE [address] [place] [phone] Dmitry Singh FNP [address] [place], [place] [phone] Scheduled Orders Name Type Priority Associated Diagnoses Orde r Schedule CBC auto differential Lab Routine Healthcare maintenance Expected: 07/16/2025 (Approximate), Expires: 07/16/2026 Comprehensive Metabolic Panel Lab Routine Healthcare maintenance Expected: 07/16/2025 (Approximate), Expires: 07/16/2026 Lipid Panel, Standard Lab Routine Healthcare maintenance Expected: 07/16/2025 (Approximate), Expires: 07/16/2026 PSA, Screen Lab Routine Screening for prostate cancer Expected: 07/16/2025 (Approximate), Expires: 07/16/2026 Albumin, Random Urine W/Creatinine Lab Routine Healthcare maintenance Expected: 07/16/2025 (Approximate), Expires: 07/16/2026 Urinalysis, Complete, with Reflex to Culture Lab Routine Healthcare maintenance Expected: 07/16/2025 (Approximate), Expires: 07/16/2026 Hepatitis B Surface Antibody, Qualitative Lab Routine Screening examination for STI Expected: 07/16/2025 (Approximate), Expires: 07/16/2026 Hepatitis B surface antigen, EIA Lab Routine Screening examination for STI Expected: 07/16/2025 (Approximate), Expires: 07/16/2026 Hepatitis C Antibody with Reflex to HCV, RNA, Quantitative, Real-Time PCR Lab Routine Screening examination for STI Expected: 07/16/2025, Expires: 07/16/2026 Syphilis Screen Lab Routine Screening examination for STI Expected: 07/16/2025, Expires: 07/16/2026 Chlamydia/N. Gonorrhoeae, PCR, Urine Lab Routine Screening examination for STI Ordered: 07/16/2025 Scheduled Referrals Name Type Priority Associated Diagnoses Order Schedule Referral to Optometry Outpatient Referral Routine Healthcare maintenance Expected: 07/16/2025 (Approximate), Expires: 07/16/2026 Referral to [facility] Dental Adult Outpatient Referral Routine Healthcare maintenance Expected: 07/16/2025 (Approximate), Expires: 07/16/2026 Referral to Gastroenterology Outpatient Referral Routine Screening for colon cancer Expected: 07/16/2025 (Approximate), Expires: 07/16/2026 documented as of this encounter Procedures Procedure Name Priority Date/Time Associated Diagnosis Comments POCT GLUCOSE Routine 07/16/2025 2:29 PM EDT Type 2 diabetes mellitus without complication, without long-term current use of insulin (HCC) POCT URINALYSIS DIPSTICK Routine 07/16/2025 2:26 PM EDT Type 2 diabetes mellitus without complication, without long-term current use of insulin (HCC) POCT GLYCATED HEMOGLOBIN, TOTAL Routine 07/16/2025 2:15 PM EDT Healthcare maintenance documented in this encounter Results * (ABNORMAL) POCT Glucose (07/16/2025 2:29 PM EDT) Glucose Blood, POC 304(A) 60 - 200 mg/dL QC Media Lot # [id number] Lot# Expiration Date Blood Capillary blood specimen / Unknown 07/16/2025 2:29 PM EDT Dmitry Singh [facility] POINT OF CARE TEST ENTER/EDIT ORDERABLES Final Result * POCT Urinalysis (07/16/2025 2:26 PM EDT) Color, UA Yellow Clarity, UA Clear Glucose, UA Trace Comment:500mg Bilirubin, UA Negative Ketones, UA Negative Spec Grav, UA 1.010 Blood, UA Negative Negative, None Detected pH, UA 5.0 Protein, UA Negative Urobilinogen, UA 0.2 Leukocytes, UA Negative Negative, Rare, Trace Nitrite, UA Negative Negative, None Detected Appearance, UA clear QC Media Lot # [id number] Lot# Expiration Date Urine (Urine, Random) 07/16/2025 2:26 PM EDT [facility] POINT OF CARE TEST ENTER/EDIT ORDERABLES Final Result * (ABNORMAL) POCT Hgb A1c (07/16/2025 2:15 PM EDT) Hemoglobin A1C 13.1(A) 4.0 - 5.7 % QC Media Lot # [id number] Lot# Expiration Date ,[id number] Blood 07/16/2025 2:15 PM EDT Dmitry Singh [employer] POINT OF CARE TEST ENTER/EDIT ORDERABLES Final Result documented in this encounter Visit Diagnoses Diagnosis Type 2 diabetes mellitus without complication, without long-term current use of insulin (HCC)- Primary Screening for prostate cancer Special screening for malignant neoplasm of prostate Healthcare maintenance Screening for colon cancer Special screening for malignant neoplasms, colon Screening examination for STI documented in this encounter Additional Health Concerns Assessment Noted Time PHQ-9 Depression Total Score: 0 07/16/20 25 1:13 PM EDT documented as of this encounter
--- OUTSIDE RECORDS SUMMARY | 2025-07-16 16:10 | XMS_ITS | Encounter Summary ---
Author Organization [employer] Address [address] [facility] 7t [place] [address] Care Team Providers Care Renal Medicine Physician Name Role Phone Unavailable Primary Care Provider Unavailabl e Reason for Visit * Reason Onset Date Comments Chart Prep 07/15/2025 Encounter Details Date Type Department Care Team ([facility] st Contact Info) Description 07/15/2025 Telephone [facility] [address] [place] [address] Dmitry Singh FNP [address] [place] [address] Chart Prep Social History Tobacco Use Types Packs/Day Years Used Date Smoking Tobacco: Never Smokeless Tobacco: Never Alcohol Use Standard Drinks/Week Comments Never 0 [...] PM EDT documented as of this encounter Miscellaneous Notes * Telephone Encounter - Deedee Nunez MA - 07/15/2025 9:35 AM EDT Chart Prep Labs: not applicable Images: not applicable Referrals: not applicable Vaccines due: Covid, Flu, Hep B, Zoster, and DTAP Screenings: colonoscopyAlcohol/Substance Use Screening Overdue care gaps: SBIRT, SDOH, PHQ-9, WILIAN-7, Oral health screening, Disability screen, and Tobacco documented in this encounter Plan of Treatment Upcoming Encounters Date Type Department Care Team (Late st Contact Info) Description 08/11/2025 3:00 PM EST Office Visit [facility] MEDICINE [address] [place] [address] Dmitry Singh FNP [address] [place] [address] documented as of this encounter Visit Diagnoses Not on filedocumented in this encounter
--- OUTSIDE RECORDS SUMMARY | 2025-07-16 16:11 | XMS_ITS | Encounter Summary ---
Author Organization [employer] Address [address] [place] [address] 7 [place] [address] Care Team Providers Care Admissions Coordinator Name Role Phone Unavailable Primary Care Provider Unavailabl e Reason for Visit * Reason Onset Date Comments returning call 05/14/2023 Encounter Details Date Type Department Care Team (Late Contact Info) Description 05/14/2023 Telephone [facility] ADULT DENTAL [address] [place] [address] Abdirahman Villanueva DDS [address] [place] [address] returning call Social History Tobacco Use Types Packs/Day Years Used Date Smoking Tobacco: Never Smokeless Tobacco: Never Alcohol Use Standard Drinks/Week Comments Never 0 (1 standard drink = 0.6 oz pur e alcohol) Sex and Gender Information Value Date Recorded Sex Assigned at Male 04/12/2023 1:14 PM EDT Legal Sex Male 4:26 PM EST Gender Identity Male 04/12/2023 1:14 PM EDT Sexual Orientation Straight 04/12/2023 1: 14 PM EDT documented as of this encounter Miscellaneous Notes * Telephone Encounter - Erin Cote - 05/14/2023 3:41 PM EDT Patient returned call place on 05/13. Called [facility] dental no answer. Pls return call to patient DR documented in this encounter Plan of Treatment Upcoming Encounters Date Type Department Care Team (Late Contact Info) Description 08/11/2025 3:00 PM EST Office Visit [facility] MEDICINE [address] [place] [address] Dmitry Singh FNP [address] [place] [address] documented as of this encounter Visit Diagnoses Not on filedocumented in this encounter
--- OUTSIDE RECORDS SUMMARY | 2025-07-16 16:11 | XMS_ITS | Encounter Summary ---
Author Organization [employer] Address [address] [place] [address] Care Team Providers Care Pourer Name Role Phone Unavailable Primary Care Provider Unavailabl e Encounter Details Date Type Department Care Team (Latest Contact Info) Description 07/16/2025 Travel Social History Tobacco Use Types Packs/Day Years [...] PM EDT documented as of this encounter Functional Status * Over the [...] Description 08/11/2025 3:00 PM EST Office Visit [facility] MEDICINE [address] [place] [address] Dmitry Singh FNP [address] [place] [address] documented as of this encounter Visit Diagnoses Not on filedocumented in this encounter Additional Health Concerns Assessment Noted Time PHQ-9 Depression Total Score: 0 07/16/20 1:13 PM EDT documented as of this encounter
--- OUTSIDE RECORDS SUMMARY | 2025-07-16 16:11 | XMS_ITS | Clinical Summary ---
Author Organization [employer] Address [address] [facility] [address] [place] [address] Care Team Providers Care Pay Per Click Strategist Name Role Phone Unavailable Primary Care Provider Unavailabl e Allergies No known active allergies Medications ziprasidone (Geodon) 60 MG capsule TOME VENTURA C PSULA DOS VECES AL D A CON LAS COMIDAS 3 Active metFORMIN XR (Glucophage-XR ) 500 MG 24 hr tablet Take 1 tablet (500 mg) by mouth with evening meal. Do not crush, chew, or split. 30 tablet 11 5 07/16/20 26 Active metFORMIN (Glucophage) 1000 MG tablet TOME VENTURA TABLETA DOS VECES AL D A 3 07/16/20 25 Discontinued Encounters Date Type Department Care Team Description 07/16/2025 1:00 PM EDT Office Visit [facility] MED[facility]INE [address] [place] [address] Dmitry Singh FNP Type 2 diabetes mellitus without complication, without long-term current use of insulin (HCC) (Primary Dx); Screening for prostate cancer; Healthcare maintenance; Screening for colon cancer; Screening examination for STI 07/16/2025 Travel 07/15/2025 Telephone [facility]S [address] [place] [address] Dmitry Singh FNP Chart Prep from Last 3 Months Immunizations Immunization Administration Dates Next Due Influenza injectable quadrivalent preservative f ree 06/24/2020 Pneumococcal Conjugate PCV 20 05/09/2023 Social History Tobacco Use Types Packs/Day Years [...] Orientation Straight 04/12/2023 1: 14 PM EDT Last Filed Vital Signs Vital Sign Reading [...] - - Body Mass Index - - Plan of Treatment Upcoming Encounters Date Type Department Care Team (Late st Contact Info) Description 08/11/2025 3:00 PM EST Office Visit [facility] MEDICINE [address] [place] [address] Dmitry Singh FNP [address] [place] [address] Health Maintenance Due Date Last Done Comments CT Colonography 1969 Colonoscopy 1969 Colorectal Cancer Screening 1969 Dental Prophylaxis 1969 FIT DNA/Cologuard 1969 FIT 1969 FOBT 1969 HIV Screening 1969 Lipid Panel 1969 Sigmoidoscopy 1969 Diabetes: Foot Exam 1979 Eye Exam 1979 Hepatitis C Screening 1987 DTaP/Tdap/Td Vaccines (1 - Tdap) 1988 Diabetes: Urine Protein Screening 1988 Hepatitis B Vaccines (1 of 3 - 19+ 3-dose series) 1988 Zoster Vaccines (1 of 2) 2019 Dental Oral Exam 11/04/2023 05/03/2023 Dental X-Ray: Bitewings 05/04/2024 05/03/2023 COVID-19 Vaccine (3 - 2024-2 6 season) 2025 01/31/2021, 01/04/2021 Influenza Vaccine (#1) 2025 06/24/2020 Diabetes: Hemoglobin A1C 10/16/2025 07/16/2025 Dental X-Ray: Full Mouth 05/04/2026 05/03/2023 Alcohol/Substance Use Screening 07/16/2026 07/16/2025 Depression Screening 07/16/2026 07/16/2025, 07/16/2025 Disability Screening 07/16/2026 07/16/2025 SDOH Screening 07/16/2026 07/16/2025 Tobacco Screening 07/16/2026 07/16/2025 RSV Patients and Patients Aged 60 years or older (1 - 1-dose 75+ series) 2044 Pneumococcal Vaccine: 50+ Years Completed 05/09/2023 HIB Vaccines Aged Out No longer eligi ble based on patient's age to complete this topic HPV Vaccines Aged Out No longer eligi ble based on patient's age to complete this topic Hepatitis A Vaccines Aged Out No long er eligible based on patient's age to complete this topic IPV Vaccines Aged Out No longer eligi ble based on patient's age to complete this topic Meningococcal B Vaccine Aged Out No l onger eligible based on patient's age to complete this topic Meningococcal Vaccine Aged Out No luis f all eligible based on patient's age to complete this topic RSV under 20 months Aged Out No longe r eligible based on patient's age to complete this topic Rotavirus Vaccines Aged Out No longer eligible based on patient's age to complete this topic Procedures Procedure Name Priority Date/Time Associated Diagnosis Comments POCT GLUCOSE Routine 07/16/2025 2:29 PM EDT Type 2 diabetes mellitus without complication, without long-term current use of insulin (HCC) POCT URINALYSIS DIPSTICK Routine 07/16/2025 2:26 PM EDT Type 2 diabetes mellitus without complication, without long-term current use of insulin (HCC) POCT GLYCATED HEMOGLOBIN, TOTAL Routine 07/16/2025 2:15 PM EDT Healthcare maintenance INTRAORAL - COMPLETE SERIES OF RADIOGRAPHIC IMAGES Routine 05/03/2023 1:30 PM EDT COMPREHENSIVE ORAL EVALUATION - NEW OR ESTABLISHED PATIENT Routine 05/03/2023 1:30 PM EDT from Last 3 Months or Most Recently Relevant to Health Maintenance Results * (ABNORMAL) POCT Glucose (07/16/2025 2:29 PM EDT) [facility] Glucose Blood, POC 304(A) 60 - 200 mg/dL QC Media Lot # [id number] Lot# Expiration Date [id number] Blood Capillary blood specimen / Unknown 07/16/2025 2:29 PM EDT Dmitry Singh [employer] POINT OF CARE TEST ENTER/EDIT ORDERABLES Final [...] Media Lot # [id number] Lot# Expiration Date [id number] Urine (Urine, Random) 07/16/2025 2:26 PM EDT Dmitry Singh [facility] POINT OF CARE TEST ENTER/EDIT ORDERABLES Final Result * (ABNORMAL) POCT Hgb A1c (07/16/2025 2:15 PM EDT) Hemoglobin A1C 13.1(A) 4.0 - 5.7 % QC Media Lot # [id number] Lot# Expiration Date ,[id number] Blood 07/16/2025 2:15 PM EDT Dmitry Singh [facility] POINT OF CARE TEST ENTER/EDIT ORDERABLES Final Result from Last 3 Months Insurance * Guarantor: Scott Montero Account Type Relation to Patient Date of Phone Billing Address Personal/Family Self 1970 [address] [facility] [address] [place] [address] [facility] [place] [phone] [place] * Guarantor: Scott Montero Account Type Relation to Patient Date of Phone Billing Address Personal/Family Self [address] [facility] [address] [place] [id number] * Guarantor: Scott Montero Account Type Relation to Patient Date of Phone Billing Address Personal/Family Self [address] [place] [id number]
[2025-07-16 18:04] LABS: MANUAL DIFF FLAG NO
[2025-07-16 18:14] LABS: Appearance Urine Clear; Glucose Urine UA >=1000 mg/dL (Negative); PH 5.5 (5.0-9.0); Specific Gravity - Urine 1.020 (1.005-1.025); UMIC TRIGGER UACC YES
[2025-07-16 18:17] LABS: Hematocrit 44.8 % (42.0-52.0); Hemoglobin 15.3 g/dl (14.0-18.0); Imm Gran Abs Auto 0.02 X10*3/uL (0.00-0.03); Imm Gran Pct Auto 0.3 % (0.0-0.4); Lymphocytes Absolute Auto 1.6 X10*3/uL (1.2-4.9); Mean Corpuscular HGB Conc 34.2 g/dl (31.0-36.0); Mean Corpuscular Hemoglobin 27.7 pg (27.0-33.0); Mean Corpuscular Volume 81.0 fL (80.0-98.0); NRBC Abs Auto 0.000 X10*3/uL (0.0-0.012); NRBC Pct Auto 0.0 /100WBC (0.0-0.2); Platelet Count 185 X10*3/uL (160-400); Red Blood Count 5.53 X10*6/uL (4.60-5.80); White Blood Count 6.8 X10*3/uL (4.8-10.8)
[2025-07-16 18:30] LABS: Microalbum/Creatinine Ratio Ur 136.0 ug/mg cr (<30)
[2025-07-16 18:50] LABS: Alanine Aminotransferase 44 U/L (0-40); Albumin Level 4.3 g/dL (3.5-5.0); Alkaline Phosphatase 93 U/L (39-117); Anion Gap 10 (12-20); Aspartate Amino Transferase 19 U/L (5-37); Blood Urea Nitrogen 12 mg/dL (9-16); Calcium 8.5 mg/dL (8.4-10.2); Carbon Dioxide 31 mmol/L (22-29); Chloride 100 mmol/L (96-108); Cholesterol 187 mg/dL (<200); Estimated Glomerular Filt Rate > 60; HDL Cholesterol 36 mg/dL (>40); Potassium 3.7 mmol/L (3.3-5.1); Sodium 137 mmol/L (135-145); Total Protein 7.3 g/dL (6.5-8.0); Triglycerides 221 mg/dL (<150)
[2025-07-17 07:15] LABS: Syphilis Screen Nonreactive (Nonreactive)
[2025-07-17 07:26] LABS: HBS Num1 1.14 mIU/mL (0-7.99); HBsAGNum1 0.48 S/CO (0.00-0.99); Hepatitis B Surface Antigen Negative (Negative); ~HepC Num1 0.21 S/CO (0.00-0.79); ~Hepatitis B Surface Antibody NONREACTIVE (Nonreactive); ~Hepatitis C Antibody Nonreactive (Nonreactive)
[2025-07-17 12:06] LABS: CT PCR Urine NOT DETECTED (Not Detect.); NG PCR Urine NOT DETECTED (Not Detect.)
== END 2025-07-16 16:08 | disposition home or self-care (01) ==
LOC: HO.HHCL 16:07
DX: Z00.00 Encounter for general adult medical examination without abnormal findings (principal); Z11.3 Encounter for screening for infections with a predominantly sexual mode of transmission; Z12.5 Encounter for screening for malignant neoplasm of prostate; Z13.6 Encounter for screening for cardiovascular disorders; Z20.2 Contact with and (suspected) exposure to infections with a predominantly sexual mode of transmission
CPT/HCPCS: 80053; 80061; 81001; 82043; 82570; 84153; 85025; 86706; 86780; 86803; 87340; 87491; 87591